=== PATIENT | male | born 1960 | race Caucasian/White ===

== ENCOUNTER 2018-08-05 16:21 | Inpatient (IN) | payer OTHER ==
[2018-08-05] MEDS ORDERED: SODIUM CHLORIDE 0.9% 500 ML 500 ML IV STA (16:38)
[2018-08-05] MEDS ORDERED: SODIUM CHLORIDE 0.9% 1,000 ML IV ONE (16:50)
--- NOTE | 2018-08-05 16:57 | ED ---
Syncope HPI <Luis Enrique Chavez - Last Filed: 08/05/18 17:01> - General Source: EMS Mode of arrival: EMS Limitations: no limitations <Ama Amato - Last Filed: 08/05/18 19:53> - General Chief Complaint: Syncope Stated Complaint: syncope Time Seen by Provider: 08/05/18 16:38 - History of Present Illness Initial Comments: 38-year-old male past medical history of hypertension, oral/soft tissue and tongue cancer diagnosed 05/12/2018, recent diagnosis of atrial fibrillation on eliquis, with history of syncope presenting today for chief complaint of syncopal episode. Patient states that he felt dizzy while at his radiation appointment with Dr. Lay. He was sitting in a chair, when he passed out. Patient family member denies any seizure-like activity. Patient did not have incontinence, biting tongue or have any other oral injury. Patient was put on the ground, but he states that he was alert and oriented when he woke up about a minute later. Family denies fall head or neck injury or injury to any other extremity. Patient denies any chest pain, shortness of breath, palpitations, dyspnea on exertion, cough, sinus, calf pain, headache, confusion, speech or gait changes, muscle weakness or loss of sensation or paresthesias prior to falling fall. Patient states he did feel a little dizzy just prior to syncopal episode. Upon arrival to ER pt is AAOx4 no signs of altered. Pt did admit to eating medical marijuana cookie today, as well as chronic nausea and vomiting. Remainder of ROS (-), patient denies any recent fever, chills, back pain, abdominal pain, numbness or tingling, dysuria or hematuria, constipation or diarrhea, or visual changes, or any other complaints. Upon arrival patient hemodynamically stable. (Ama Amato) - Related Data Home Medications Medication Instructions Recorded Confirmed ALPRAZolam [Xanax] 0.25 mg PO Q8HR PRN 07/21/18 08/05/18 Cevimeline [Evoxac] 30 mg PO TID 07/21/18 08/05/18 Magic Mouthwash 15 ml PO AC-TID 07/21/18 08/05/18 Ondansetron [Zofran ODT] 4 mg PO Q4H PRN 07/21/18 08/05/18 Previous Rx's Medication Instructions Recorded Apixaban [Eliquis] 5 mg PO BID #60 tab 07/24/18 Fluconazole [Diflucan] 200 mg PO DAILY #7 tab 07/24/18 Metoprolol Tartrate [Lopressor] 12.5 mg PO TID #90 tab 07/24/18 Scopolamine 1.5MG/72Hr Patch 1 patch TRANSDERM Q72H #10 patch 07/24/18 [TransDerm Scop] Allergies Allergy/AdvReac Type Severity Reaction Status Date / Time No Known Allergies Allergy Verified 08/05/18 16:45 Review of Systems ROS Other: All systems not noted in ROS Statement are negative. <Luis Enrique Chavez - Last Filed: 08/05/18 17:01> ROS Other: All systems not noted in ROS Statement are negative. Constitutional: Denies: fever, chills ENT: Denies: ear pain, throat pain Respiratory: Denies: as per HPI, cough, dyspnea, wheezes, hemoptysis, stridor Cardiovascular: Denies: chest pain, palpitations, dyspnea on exertion Endocrine: Denies: fatigue Gastrointestinal: Reports: nausea, vomiting. Denies: abdominal pain, diarrhea, constipation, hematemesis, melena, hematochezia Genitourinary: Denies: urgency, dysuria, frequency, hematuria Musculoskeletal: Denies: back pain Skin: Denies: rash, lesions Neurological: Reports: vertigo (dizziness just prior to passing out). Denies: headache, weakness, numbness, paresthesias, confusion, abnormal gait <Ama Amato - Last Filed: 08/05/18 19:53> ROS Statement: Those systems with pertinent positive or pertinent negative responses have been documented in the HPI. 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 History of Any Multi-Drug Resistant Organisms: None Reported Past Surgical History: Tonsillectomy Additional Past Surgical History / Comment(s): Bronchoscopies x2 with base of tongue bx/lesion removal per spouse, nasal fracture with surgery. Additional Past Anesthesia/Blood Transfusion Reaction / Comment(s): Pt was hypertensive once. Past Psychological History: Anxiety Smoking Status: Never smoker Past Alcohol Use History: None Reported Past Drug Use History: Marijuana - Past Family History Father Family Medical History: Myocardial Infarction ([place]) Additional Family Medical History / Comment(s): Father of heart problems. Mother Family Medical History: Myocardial Infarction ([place]) Additional Family Medical History / Comment(s): Mother of heart problems. <Allison Amatobrenda Serrano - Last Filed: 08/05/18 19:53> General Exam <Luis Enrique Chavez - Last Filed: 08/05/18 17:01> Limitations: no limitations <Allison Amatobrenda Serrano - Last Filed: 08/05/18 19:53> - General Exam Comments Initial Comments: General: The patient is awake and alert, in no distress, and does not appear acutely ill. Eye: +3 pupils are equal, round and reactive to light, extra-ocular movements are intact. No nystagmus. There is normal conjunctiva bilaterally. No signs of icterus. Ears, nose, mouth and throat: There are moist mucous membranes and no oral lesions. Neck: There is large left sided mass. Cardiovascular: There is a irregular rate and irregular rhythm. No murmur, rub or gallop is appreciated. Respiratory: Lungs are clear to auscultation, respirations are non-labored, breath sounds are equal. No wheezes, stridor, rales, or rhonchi. Gastrointestinal: Soft, non-distended, non-tender abdomen without masses or organomegaly noted. There is no rebound or guarding present. No CVA tenderness. Bowel sounds are unremarkable. Musculoskeletal: Normal ROM, no tenderness. Strength 5/5. Sensation intact. Pulses equal bilaterally 2+. Neurological: A&O x 3. CN II-XII intact, There are no obvious motor or sensory deficits. Coordination appears grossly intact. Speech is normal. Skin: Skin is warm and dry and no rashes or lesions are noted. No LE edema Psychiatric: Cooperative, appropriate mood & affect, normal judgment. (Ama Amato) Course <Luis Enrique Chavez - Last Filed: 08/05/18 17:01> <ValentinAma tinsley - Last Filed: 08/05/18 19:53> Vital Signs 08/05/18 08/05/18 16:29 17:55 Temperature 97.5 F L Pulse Rate 124 H 100 Respiratory 18 18 Rate Blood Pressure 113/87 160/102 O2 Sat by Pulse 99 98 Oximetry (LmAma Serrano) - Reevaluation(s) Reevaluation #1: 08/05/18 17:01 PA supervision: I proceeded [id number] evaluation the patient did discuss the findings with him and his . Patient has a recurrence of atrial fibrillation with rapid ventricular response. This occurred right after radiation treatment today. He did have nausea vomiting. He does feel somewhat dizzy and weak. No chest pain at this time. He is currently in atrial fibrillation heart is irregularly irregular on examination. I do agree with the assessment and plan patient be admitted with consultation by cardiology and oncology. Case will be discussed with Dr. Echols. (Luis Enrique Chavez) EKG Findings - EKG Comments: EKG Findings:: Due to the right eye and 25 bpm, QRS 90 ms, QT/QTC 322/464 ms. This is a true fibrillation with rapid ventricular response. There is nonspecific ST abnormality. No ST elevation or depression concerning for acute coronary syndrome at this time. EKG reviewed by Dr. Luis Enrique Chavez as well as myself. <Ama Amato - Last Filed: 08/05/18 19:53> Medical Decision Making <Luis Enrique Chavez - Last Filed: 08/05/18 17:01> - Lab Data Result diagrams: 08/05/18 16:41 08/05/18 16:41 <Ama Amato - Last Filed: 08/05/18 19:53> - Medical Decision Making Upon arrival EKG obtained revealing A. fib RVR. Given 1000mL of 0.9% saline bolus. Blood pressure stable, no hypotension. Repeat blood pressure elevated. Patient's started on a Cardizem drip, at 5 mg an hour. Patient was evaluated [id number] by Dr. Chavez. At this time feel patient had syncopal episode possibly related to A. fib RVR. CXR (-) Troponin negative, CK-MB negative. Hemoglobin is mildly decreased in comparison with visit 2 weeks ago, mild bump in creatinine however patient has had chronic nausea and vomiting since beginning chemotherapy. Patient dry and exam. Noted leukopenia. At this time patient will be admitted to , with consult by Dr. Son as well as [facility]. Patient is agreeable with admission, he remained stable upon multiple re-evaluations. Continues to deny any chest pain, shortness of breath, palpitations, abdominal pain, back pain. Remains hemodynamically stable. Prior to shift change, pt remainded in ER on HOLD. Admitted provider aware of pt, I updated ER physician Dr. Chavez on pt, he will continue care until transfer to the floor. (Ama Amato) - Lab Data Lab Results 08/05/18 08/05/18 08/05/18 Range/Units 16:41 16:41 16:41 WBC 2.3 L (3.8-10.6) k/uL RBC 3.50 L (4.30-5.90) m/uL Hgb 11.0 L (13.0-17.5) gm/dL Hct 32.1 L (39.0-53.0) % MCV 91.9 (80.0-100.0) fL MCH 31.4 (25.0-35.0) pg MCHC 34.2 (31.0-37.0) g/dL RDW 13.7 (11.5-15.5) % Plt Count 414 (150-450) k/uL Neutrophils % (Manual) 59 % Band Neutrophils % 1 % Lymphocytes % (Manual) 28 % Monocytes % (Manual) 12 % Neutrophils # (Manual) 1.30 (1.3-7.7) k/uL Lymphocytes # (Manual) 0.64 L (1.0-4.8) k/uL Monocytes # (Manual) 0.28 (0-1.0) k/uL Nucleated RBCs 0 (0-0) /100 WBC Manual Slide Review Performed Large Platelets Present Polychromasia Present Poikilocytosis (manual Present PT (9.0-12.0) sec INR (<1.2) APTT (22.0-30.0) sec Sodium 140 (137-145) mmol/L Potassium 4.0 (3.5-5.1) mmol/L Chloride 103 (98-107) mmol/L Carbon Dioxide 25 (22-30) mmol/L Anion Gap 12 mmol/L BUN 31 H (9-20) mg/dL Creatinine 1.52 H (0.66-1.25) mg/dL Est GFR (CKD-EPI)AfAm 58 (>60 ml/min/1.73 sqM) Est GFR (CKD-EPI)NonAf 50 (>60 ml/min/1.73 sqM) Glucose 163 H (74-99) mg/dL Calcium 9.7 (8.4-10.2) mg/dL Magnesium 2.0 (1.6-2.3) mg/dL Total Bilirubin 0.7 (0.2-1.3) mg/dL AST 43 (17-59) U/L ALT 82 H (21-72) U/L Alkaline Phosphatase 103 (38-126) U/L Total Creatine Kinase 25 L (55-170) U/L CK-MB (CK-2) <0.2 (0.0-2.4) ng/mL CK-MB (CK-2) Rel Index Troponin I <0.012 (0.000-0.034) ng/mL Total Protein 6.7 (6.3-8.2) g/dL Albumin 3.8 (3.5-5.0) g/dL 08/05/18 Range/Units 16:41 WBC (3.8-10.6) k/uL RBC (4.30-5.90) m/uL Hgb (13.0-17.5) gm/dL Hct (39.0-53.0) % MCV (80.0-100.0) fL MCH (25.0-35.0) pg MCHC (31.0-37.0) g/dL RDW (11.5-15.5) % Plt Count (150-450) k/uL Neutrophils % (Manual) % Band Neutrophils % % Lymphocytes % (Manual) % Monocytes % (Manual) % Neutrophils # (Manual) (1.3-7.7) k/uL Lymphocytes # (Manual) (1.0-4.8) k/uL Monocytes # (Manual) (0-1.0) k/uL Nucleated RBCs (0-0) /100 WBC Manual Slide Review Large Platelets Polychromasia Poikilocytosis (manual PT 11.1 (9.0-12.0) sec INR 1.2 H (<1.2) APTT 23.1 (22.0-30.0) sec Sodium (137-145) mmol/L Potassium (3.5-5.1) mmol/L Chloride (98-107) mmol/L Carbon Dioxide (22-30) mmol/L Anion Gap mmol/L BUN (9-20) mg/dL Creatinine (0.66-1.25) mg/dL Est GFR (CKD-EPI)AfAm (>60 ml/min/1.73 sqM) Est GFR (CKD-EPI)NonAf (>60 ml/min/1.73 sqM) Glucose (74-99) mg/dL Calcium (8.4-10.2) mg/dL Magnesium (1.6-2.3) mg/dL Total Bilirubin (0.2-1.3) mg/dL AST (17-59) U/L ALT (21-72) U/L Alkaline Phosphatase (38-126) U/L Total Creatine Kinase (55-170) U/L CK-MB (CK-2) (0.0-2.4) ng/mL CK-MB (CK-2) Rel Index Troponin I (0.000-0.034) ng/mL Total Protein (6.3-8.2) g/dL Albumin (3.5-5.0) g/dL Disposition <Luis Enrique Chavez - Last Filed: 08/05/18 17:01> Is patient prescribed a controlled substance at d/c from ED?: No Time of Disposition: 16:57 Decision to Admit Reason: Admit from EC Decision Date: 08/05/18 Decision Time: 16:57 <Ama Amato - Last Filed: 08/05/18 19:53> Clinical Impression: Atrial fibrillation with RVR, Syncope, Leukopenia Disposition: ADMITTED IP TO THIS HOSP Condition: Stable
[2018-08-05] MEDS ORDERED: DILTIAZEM 50 MG in SODIUM CHLORIDE 0.9% 40 ML IV SCH (17:00)
[2018-08-05 17:09] LABS: Albumin 3.8 g/dL (3.5-5.0); Calcium 9.7 mg/dL (8.4-10.2); Total Bilirubin 0.7 mg/dL (0.2-1.3); Total Protein 6.7 g/dL (6.3-8.2)
[2018-08-05 17:10] LABS: INR 1.2 (<1.2); Partial Thromboplastin Time 23.1 sec (22.0-30.0); Prothrombin Time 11.1 sec (9.0-12.0)
[2018-08-05 17:11] LABS: Creatine Kinase 25 U/L (55-170)
[2018-08-05] MEDS ORDERED: NALOXONE 0.4 MG/ML 1 ML VIAL IV PRN (17:14)
[2018-08-05] MEDS ORDERED: ONDANSETRON 4 MG/2 ML VIAL IVP PRN (17:14)
[2018-08-05] MEDS ORDERED: ALPRAZolam 0.25 MG TAB PO PRN (17:18)
[2018-08-05 17:24] LABS: HCT 32.1 % (39.0-53.0); MCH 31.4 pg (25.0-35.0); MCHC 34.2 g/dL (31.0-37.0); MCV 91.9 fL (80.0-100.0); Mean Platelet Volume 7.6; Platelet Count 414 k/uL (150-450); RDW 13.7 % (11.5-15.5); WBC 2.3 k/uL (3.8-10.6)
[2018-08-05 17:25] LABS: Creatine Kinase MB <0.2 ng/mL (0.0-2.4); Troponin I <0.012 ng/mL (0.000-0.034)
[2018-08-05] MEDS ORDERED: MAGIC MOUTHWASH PO SCH (17:30)
[2018-08-05] MEDS: SODIUM CHLORIDE 0.9% 1,000 ML IV SCH (17:51)
[2018-08-05 17:59] LABS: Appearance,Urine Cloudy (Clear); Bacteria,Urine Occasional /hpf; Bilirubin,Urine Negative (Negative); Blood,Urine Negative (Negative); Color,Urine Yellow; Glucose,Urine (UA) Trace (Negative); Ketones,Urine 1+ (Negative); Leukocyte Esterase,Urine Negative (Negative); Mucus,Urine Many /hpf; Nitrite,Urine Negative (Negative); PH, Urine 5.5 (5.0-8.0); Protein,Urine 1+ (Negative); RBC,Urine 4 /hpf (0-5); Specific Gravity,Urine 1.021 (1.001-1.035); Sperm,Urine Rare /hpf; WBC,Urine 7 /hpf (0-5)
[2018-08-05 18:04] LABS: Band Neutrophils % 1 %; Lymphocytes # (M) 0.64 k/uL (1.0-4.8); Monocytes # (M) 0.28 k/uL (0-1.0); Neutrophils % (M) 59 %; Nucleated Red Blood Cells 0 /100 WBC (0-0); Total Cells Counted 100
[2018-08-05 18:05] LABS: Large Platelets Present; Polychromasia Present
[2018-08-05 18:08] LABS: Poikilocytosis (M) Present
--- NOTE | 2018-08-05 18:28 | XR ---
EXAMINATION: XR chest 2V DATE AND TIME: 08/05/2018 5:10 PM CLINICAL INDICATION: syncope TECHNIQUE: PA and lateral COMPARISON: None. FINDINGS: The lungs are clear. The pleural spaces are negative. The cardiac silhouette is not enlarged. The remainder of the mediastinal silhouette is unremarkable. The skeletal structures and soft tissues are negative for acute findings. IMPRESSION: NO ACUTE PROCESS.
[2018-08-05] MEDS: DILTIAZEM 50 MG in SODIUM CHLORIDE 0.9% 40 ML IV SCH ×2 (20:17→23:12)
[2018-08-05] MEDS: METOPROLOL TARTRATE 12.5 MG TAB PO SCH (22:23)
[2018-08-05] MEDS: APIXABAN 5 MG TAB PO SCH (22:23)
[2018-08-05] MEDS: CEVIMELINE 30 MG CAP PO SCH (23:12)
[2018-08-06] MEDS: SODIUM CHLORIDE 0.9% 1,000 ML IV SCH ×2 (05:48→21:52)
[2018-08-06] MEDS: DILTIAZEM 50 MG in SODIUM CHLORIDE 0.9% 40 ML IV SCH (05:49)
[2018-08-06] MEDS: MAG HYDROX/AL HYDROX/SIMETH 30 ML, diphenhydrAMINE ELIXIR 75 MG, LIDOCAINE VISCOUS 30 ML PO SCH ×9 (07:39→16:38)
[2018-08-06] MEDS: METOPROLOL TARTRATE 12.5 MG TAB PO SCH ×3 (08:25→21:52)
[2018-08-06] MEDS: APIXABAN 5 MG TAB PO SCH (08:25)
[2018-08-06] MEDS: CEVIMELINE 30 MG CAP PO SCH ×3 (08:25→21:52)
--- NOTE | 2018-08-06 10:33 | P.CRDCN ---
History of Present Illness Consult date: 08/06/18 Requesting physician: Gomez Echols Consult reason: sycope, atrial fibrillation Chief complaint: Syncope History of present illness: This is a pleasant 58-year-old gentleman with history of hypertension , who had a recent hospitalization earlier this month and was diagnosed with atrial fibrillation. He has oral cancer and is currently undergoing chemotherapy and radiation treatment. Patient has not been eating or drinking much at home, and has been getting more tired and more weak. He was at his doctor's appointment with Dr. Lay yesterday, he states that he felt lightheaded and felt as though he may pass out, shortly after that he did pass out leaning against his sitting in a chair. The staff in the office assisted him down to the ground. Upon wakening he was alert and oriented 3, he did not lose bowel or bladder function. Chest x-ray did not reveal any acute process. EKG showed atrial fibrillation with rapid ventricular response on arrival here. Blood pressure this morning 114/70 with a heart rate of 60, 96 % on room air. White blood cell count 2.3, hemoglobin 11, platelet count 414. Sodium 140, potassium 4.0, BUN 31, creatinine 1.5. Troponin 0.012. At the time of my examination, patient just complains of feeling extremely weak, denies any palpitations, no chest discomfort, no difficulty in breathing. He did have an echocardiogram with Doppler study performed earlier this month which revealed an ejection fraction of greater than 55%. 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 History of Any Multi-Drug Resistant Organisms: None Reported Past Surgical History: Tonsillectomy Additional Past Surgical History / Comment(s): Bronchoscopies x2 with base of tongue bx/lesion removal per spouse, nasal fracture with surgery. Additional Past Anesthesia/Blood Transfusion Reaction / Comment(s): Pt was hypertensive once. Past Psychological History: Anxiety Additional Psychological History / Comment(s): Pt resides with his spouse of 22 yrs and her 19 yr old daughter. He is disabled since his cancer diagnosis. He has had anxiety since his cancer diagnosis-takes xanax and it helps. Pt no longer drives, his spouse drives him to [employer] Pt used to work in [employer]. Smoking Status: Never smoker Past Alcohol Use History: None Reported Past Drug Use History: Marijuana - Past Family History Father Family Medical History: Myocardial Infarction ([place]) Additional Family Medical History / Comment(s): Father of heart problems. Mother Family Medical History: Myocardial Infarction ([place]) Additional Family Medical History / Comment(s): Mother of heart problems. Medications and Allergies Home Medications Medication Instructions Recorded Confirmed Type ALPRAZolam [Xanax] 0.25 mg PO Q8HR PRN 07/21/18 08/05/18 History Cevimeline [Evoxac] 30 mg PO TID 07/21/18 08/05/18 History Magic Mouthwash 15 ml PO AC-TID 07/21/18 08/05/18 History Ondansetron [Zofran ODT] 4 mg PO Q4H PRN 07/21/18 08/05/18 History Apixaban [Eliquis] 5 mg PO BID #60 tab 07/24/18 08/05/18 Rx Fluconazole [Diflucan] 200 mg PO DAILY #7 tab 07/24/18 08/05/18 Rx Metoprolol Tartrate [Lopressor] 12.5 mg PO TID #90 tab 07/24/18 08/05/18 Rx Scopolamine 1.5MG/72Hr Patch 1 patch TRANSDERM Q72H #10 patch 07/24/18 08/05/18 Rx [TransDerm Scop] Allergies Allergy/AdvReac Type Severity Reaction Status Date / Time No Known Allergies Allergy Verified 08/05/18 16:45 Physical Exam Vitals: Vital Signs Temp Pulse Pulse Resp BP BP Pulse Ox 08/06/18 04:00 98.8 F 69 18 114/74 96 08/06/18 00:00 99 F 89 18 103/65 97 08/05/18 21:54 99.2 F 106 H 18 137/79 96 08/05/18 21:01 105 H 18 135/88 96 08/05/18 20:19 150/102 08/05/18 20:18 115 H 18 97 08/05/18 17:55 100 18 160/102 98 08/05/18 16:29 97.5 F L 124 H 18 113/87 99 Intake and Output 08/05/18 08/06/18 08/06/18 22:59 06:59 14:59 Intake Total 100 529.167 Balance 100 529.167 Intake: Intake, IV Titration 529.167 Amount Diltiazem 50 mg In Sodium 79.167 Chloride 0.9% 40 ml @ 10 MG/HR 10 mls/hr IV .Q5H POLLO Rx#:[id number] Sodium Chloride 0.9% 1, 450 000 ml @ 75 mls/hr IV . [id number] POLLO Rx#:[id number] Oral 100 Other: # Voids 2 Weight 74.843 kg PHYSICAL EXAMINATION: GENERAL: 58-year-old gentleman in no acute distress at the time of my examination HEENT: Head is atraumatic, normocephalic. Pupils equal, round. Sclera anicteric. Conjunctiva are clear. Mucous membranes of the mouth are moist. Neck is supple. There is a large mass in the supraclavicular area moved posteriorly, and a second mass above that noted. There is no elevated jugular venous pressure. No carotid bruit is heard. HEART EXAMINATION: Heart S1 and S2 irregularly irregular CHEST EXAMINATION:[ Lungs are clear to auscultation and precussion. No chest wall tenderness is noted on palpation or with deep breathing.] ABDOMEN: [ Soft, nontender. Bowel sounds are heard. No organomegaly noted]. EXTREMITIES:[ 2+ peripheral pulses with no evidence of peripheral edema and no calf tenderness noted]. NEUROLOGIC [patient is awake, alert and oriented 3 ] . Results 08/05/18 16:41 08/05/18 16:41 Cardiac Enzymes 08/05/18 08/05/18 Range/Units 16:41 16:41 AST 43 (17-59) U/L CK-MB (CK-2) <0.2 (0.0-2.4) ng/mL Troponin I <0.012 (0.000-0.034) ng/mL Coagulation 08/05/18 Range/Units 16:41 PT 11.1 (9.0-12.0) sec APTT 23.1 (22.0-30.0) sec CBC 08/05/18 Range/Units 16:41 WBC 2.3 L (3.8-10.6) k/uL RBC 3.50 L (4.30-5.90) m/uL Hgb 11.0 L (13.0-17.5) gm/dL Hct 32.1 L (39.0-53.0) % Plt Count 414 (150-450) k/uL Comprehensive Metabolic Panel 08/05/18 Range/Units 16:41 Sodium 140 (137-145) mmol/L Potassium 4.0 (3.5-5.1) mmol/L Chloride 103 (98-107) mmol/L Carbon Dioxide 25 (22-30) mmol/L BUN 31 H (9-20) mg/dL Creatinine 1.52 H (0.66-1.25) mg/dL Glucose 163 H (74-99) mg/dL Calcium 9.7 (8.4-10.2) mg/dL AST 43 (17-59) U/L ALT 82 H (21-72) U/L Alkaline Phosphatase 103 (38-126) U/L Total Protein 6.7 (6.3-8.2) g/dL Albumin 3.8 (3.5-5.0) g/dL Current Medications Generic Name Dose Route Start Last Admin Trade Name Freq PRN Reason Stop Dose Admin Alprazolam 0.25 mg 08/05/18 17:18 Xanax PO Q8HR PRN Anxiety Apixaban 5 mg 08/05/18 21:00 08/06/18 08:25 Eliquis PO 5 mg BID POLLO Administration Cevimeline HCl 30 mg 08/05/18 22:00 08/06/18 08:25 Evoxac PO 30 mg TID POLLO Administration Al Hydroxide/Mg Hydroxide 30 0 ml 08/06/18 07:30 08/06/18 07:39 ml/ Diphenhydramine HCl 75 mg/ PO Not Given Lidocaine HCl 30 ml AC-TID POLLO Sodium Chloride 1,000 mls @ 75 mls/hr 08/05/18 17:15 08/06/18 05:48 Saline 0.9% IV 75 mls/hr .[id number] POLLO Administration Diltiazem HCl 50 mg/ Sodium 50 mls @ 10 mls/hr 08/05/18 20:00 08/06/18 05:49 Chloride IV 10 mg/hr .Q5H POLLO 10 mls/hr Administration 10 MG/HR Metoprolol Tartrate 12.5 mg 08/05/18 22:00 08/06/18 08:25 Lopressor PO 12.5 mg TID POLLO Administration Naloxone HCl 0.2 mg 08/05/18 17:14 Narcan IV Q2M PRN Opioid Reversal Ondansetron HCl 4 mg 08/05/18 17:14 08/06/18 09:25 Zofran IVP 4 mg Q8HR PRN Administration Nausea And Vomiting Intake and Output 08/05/18 08/06/18 08/06/18 22:59 06:59 14:59 Intake Total 100 529.167 Balance 100 529.167 Intake: Intake, IV Titration 529.167 Amount Diltiazem 50 mg In Sodium 79.167 Chloride 0.9% 40 ml @ 10 MG/HR 10 mls/hr IV .Q5H POLLO Rx#:[id number] Sodium Chloride 0.9% 1, 450 000 ml @ 75 mls/hr IV . [id number] POLLO Rx#:[id number] Oral 100 Other: # Voids 2 Weight 74.843 kg 08/05/18 16:41 08/05/18 16:41 EKG Interpretations (text) EKG shows atrial fibrillation with moderately rapid ventricular response. Assessment and Plan Plan: Assessment and plan #1 syncope, could be secondary to dehydration, rule out arrhythmia or hypotension #2 chronic persistent atrial fibrillation, on Eliquis for anticoagulation #3 hypertension #4 acute on chronic renal failure likely secondary to dehydration #5 oral cancer, currently on chemotherapy and radiation Plan Patient just had an echocardiogram with Doppler study performed earlier this month which revealed normal left ventricular systolic function. We will check orthostatic heart rate and blood pressure every shift, continue to hydrate the patient continue to monitor for any tachycardia or bradycardia arrhythmias or any significant conversion pauses. We will also discontinue the IV Cardizem drip, heart rate this morning in the 50s. If nothing is noted here, we recommend patient wear a monitor as an patient and his are also requesting possible feeding tube placement as he has not been eating at home. Further recommendations to follow. DNP note has been reviewed, I agree with a documented findings and plan of care. Patient was seen and examined.
--- NOTE | 2018-08-06 13:10 | P.CONS ---
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 Consultation requested for malnutrition and PEG tube insertion. Patient has not been able to maintain adequate nutrition and hydration while undergoing chemoradiation. He has intermittent episodes of emesis sometimes on a daily basis. Denies hematemesis hematochezia or melena. Denies epigastric pain. Mild weight loss over the last month. No history of gastric surgeries. No history of EGD or peptic ulcer disease. Last dose of chemotherapy 2 weeks ago last radiation treatment yesterday. White count 2.3. Hemoglobin 11. Platelet 414. INR 1.2. Review of Systems Constitutional: Denies fever, chills, sweats, mild weight loss reported. HEENT: Negative for migraines, blurred vision or loss, earaches, drainage, tinnitus, oral mucosal lesions, dysphagia, or odynophagia. Cardiac: Negative for chest pain, arrhythmias, or palpitation. Respiratory: Negative for shortness of breath, hemoptysis, cough, or sputum production. Gastrointestinal: See HPI for pertinent findings. Genitourinary: Negative for hematuria, urgency, frequency, polyuria, dysuria, or penile discharge. Musculoskeletal: Negative for muscle aches, swelling, arthritis, and arthralgias. Neurologic: Negative for stroke or TIA. Endocrine: Negative for thyroid problems. Skin: Negative for rash or itching. Psychiatric: Negative history for depression and anxiety Past Medical History Past Medical History: Atrial Fibrillation, Cancer Additional Past Medical History / Comment(s): Cancer base of tongue receiving chemo (last dose 07/17/18) and radiation, dysphagia, recently has been hypertensive. History of Any Multi-Drug Resistant Organisms: None Reported Past Surgical History: Tonsillectomy Additional Past Surgical History / Comment(s): Bronchoscopies x2 with base of tongue bx/lesion removal per spouse, nasal fracture with surgery. Additional Past Anesthesia/Blood Transfusion Reaction / Comm: Pt was hypertensive once. Past Psychological History: Anxiety Additional Psychological History / Comment(s): Pt resides with his spouse of 22 yrs and her 19 yr old daughter. He is disabled since his cancer diagnosis. He has had anxiety since his cancer diagnosis-takes xanax and it helps. Pt no longer drives, his spouse drives him to [employer]. Pt used to work in [employer]. Smoking Status: Never smoker Past Alcohol Use History: None Reported Past Drug Use History: Marijuana - Past Family History Father Family Medical History: Myocardial Infarction ([place]) Additional Family Medical History / Comment(s): Father of heart problems. Mother Family Medical History: Myocardial Infarction ([place]) Additional Family Medical History / Comment(s): Mother of heart problems. Medications and Allergies Home Medications Medication Instructions Recorded Confirmed Type ALPRAZolam [Xanax] 0.25 mg PO Q8HR PRN 07/21/18 08/05/18 History Cevimeline [Evoxac] 30 mg PO TID 07/21/18 08/05/18 History Magic Mouthwash 15 ml PO AC-TID 07/21/18 08/05/18 History Ondansetron [Zofran ODT] 4 mg PO Q4H PRN 07/21/18 08/05/18 History Apixaban [Eliquis] 5 mg PO BID #60 tab 07/24/18 08/05/18 Rx Fluconazole [Diflucan] 200 mg PO DAILY #7 tab 07/24/18 08/05/18 Rx Metoprolol Tartrate [Lopressor] 12.5 mg PO TID #90 tab 07/24/18 08/05/18 Rx Scopolamine 1.5MG/72Hr Patch 1 patch TRANSDERM Q72H #10 patch 07/24/18 08/05/18 Rx [TransDerm Scop] Allergies Allergy/AdvReac Type Severity Reaction Status Date / Time No Known Allergies Allergy Verified 08/05/18 16:45 Physical Exam Vitals: Vital Signs Temp Pulse Pulse Pulse Pulse Pulse Resp 08/06/18 11:54 60 80 55 L 16 08/06/18 11:08 60 80 55 L 16 08/06/18 08:00 98.6 F 60 16 08/06/18 04:00 98.8 F 69 18 08/06/18 00:00 99 F 89 18 08/05/18 21:54 99.2 F 106 H 18 08/05/18 21:01 105 H 18 08/05/18 20:19 08/05/18 20:18 115 H 18 08/05/18 17:55 100 18 08/05/18 16:29 97.5 F L 124 H 18 BP BP BP BP BP Pulse Ox 08/06/18 11:54 08/06/18 11:08 113/73 105/66 107/59 97 08/06/18 08:00 126/73 96 08/06/18 04:00 114/74 96 08/06/18 00:00 103/65 97 08/05/18 21:54 137/79 96 08/05/18 21:01 135/88 96 08/05/18 20:19 150/102 08/05/18 20:18 97 08/05/18 17:55 160/102 98 08/05/18 16:29 113/87 99 Intake and Output 08/05/18 08/06/18 08/06/18 22:59 06:59 14:59 Intake Total 100 529.167 290 Balance 100 529.167 290 Intake: Intake, IV Titration 529.167 50 Amount Diltiazem 50 mg In Sodium 79.167 50 Chloride 0.9% 40 ml @ 10 MG/HR 10 mls/hr IV .Q5H [facility] Rx#:[id number] Sodium Chloride 0.9% 1, 450 000 ml @ 75 mls/hr IV . [id number] [facility] Rx#:[id number] Oral 100 240 Other: # Voids 2 Weight 74.843 kg General appearance: The patient is alert, oriented, in no acute distress. HE: Head is normocephalic and atraumatic. Pupils are equal and reactive. Neck: Supple without lymphadenopathy. Trachea midline. Heart: S1 S2. Regular rate and rhythm. Lungs: No crackles or wheezes are heard. Abdomen: Soft, nontender, nondistended with bowel sounds. No peritoneal signs. No palpable organomegaly or masses. Extremities: Normal skin color and turgor. No cyanosis, rash, ulceration, clubbing, or edema. Radial and pedal pulses are 2/4 bilaterally. Neurological: No focal deficits. Strength and sensation are grossly intact. Results CBC & Chem 7: 08/05/18 16:41 08/05/18 16:41 Labs: Abnormal Lab Results - Last 24 Hours (Table) 08/05/18 08/05/18 08/05/18 Range/Units 16:41 16:41 16:41 WBC 2.3 L (3.8-10.6) k/uL RBC 3.50 L (4.30-5.90) m/uL Hgb 11.0 L (13.0-17.5) gm/dL Hct 32.1 L (39.0-53.0) % Lymphocytes # (Manual) 0.64 L (1.0-4.8) k/uL INR (<1.2) BUN 31 H (9-20) mg/dL Creatinine 1.52 H (0.66-1.25) mg/dL Glucose 163 H (74-99) mg/dL ALT 82 H (21-72) U/L Total Creatine Kinase 25 L (55-170) U/L Urine Protein (Negative) Urine Glucose (UA) (Negative) Urine Ketones (Negative) Urine WBC (0-5) /hpf Urine Bacteria (None) /hpf Urine Mucus (None) /hpf 08/05/18 08/05/18 Range/Units 16:41 17:41 WBC (3.8-10.6) k/uL RBC (4.30-5.90) m/uL Hgb (13.0-17.5) gm/dL Hct (39.0-53.0) % Lymphocytes # (Manual) (1.0-4.8) k/uL INR 1.2 H (<1.2) BUN (9-20) mg/dL Creatinine (0.66-1.25) mg/dL Glucose (74-99) mg/dL ALT (21-72) U/L Total Creatine Kinase (55-170) U/L Urine Protein 1+ H (Negative) Urine Glucose (UA) Trace H (Negative) Urine Ketones 1+ H (Negative) Urine WBC 7 H (0-5) /hpf Urine Bacteria Occasional H (None) /hpf Urine Mucus Many H (None) /hpf Assessment and Plan (1) Decreased oral intake Narrative/Plan: 58-year-old gentleman recent diagnosis of oral cancer receiving chemoradiation patient unable to meet his nutritional needs with daily episodes of emesis and poor oral intake and dehydration admitted with syncopal episode. Current Visit: Yes Status: Acute Code(s): R63.8 - OTHER SYMPTOMS AND SIGNS CONCERNING FOOD AND FLUID INTAKE SNOMED Code(s): 728656223 (2) Head and neck cancer Current Visit: No Status: Acute Priority: High Code(s): C76.0 - MALIGNANT NEOPLASM OF HEAD, FACE AND NECK SNOMED Code(s): 448784943 (3) Atrial fibrillation Current Visit: Yes Status: Acute Code(s): I48.91 - UNSPECIFIED ATRIAL FIBRILLATION SNOMED Code(s): 79280679 Plan: 1. We'll proceed with PEG tube insertion scheduled Saturday [address] Rollins recommends holding ELiquis for 2 days prior toinsertion of PEG. Case was discussed with cardiology team Dr. Liz Amaya nurse practitioner as well as duct maker Dr. Eden they are agreeable with holding anticoagulation tonight and tomorrow in preparation for PEG tube insertion Saturday. 2. Continue with oral diet as tolerated. Protein shake supplementation as tolerated. Will obtain a pre-albumin level. Dietitian consultation. The varnish supervisor has discussed the risks, benefits and alternative therapies for the above-mentioned procedure and for both sedation/analgesia as well as necessary blood product administration, if indicated, as they pertain to this patient. The patient has indicated understanding and acceptance of the risks and procedures discussed. Thank you for this kind referral and the opportunity to participate in the care of your patient. This consultation was discussed with Dr. Rollins. The impression and plan of care have been directed as dictated.
[2018-08-06 14:18] LABS: HCT 28.5 % (39.0-53.0); HGB 9.9 gm/dL (13.0-17.5); MCH 31.2 pg (25.0-35.0); MCHC 34.9 g/dL (31.0-37.0); MCV 89.5 fL (80.0-100.0); Platelet Count 326 k/uL (150-450); RBC 3.18 m/uL (4.30-5.90); RDW 13.6 % (11.5-15.5); WBC 1.5 k/uL (3.8-10.6)
[2018-08-06 14:37] LABS: Calcium 8.6 mg/dL (8.4-10.2); Magnesium 1.7 mg/dL (1.6-2.3); Total Bilirubin 0.6 mg/dL (0.2-1.3); Total Protein 5.5 g/dL (6.3-8.2)
[2018-08-06] MEDS ORDERED: LORazepam 2 MG/ML INJ IV PRN (15:21)
[2018-08-06] MEDS ORDERED: DICYCLOMINE 10 MG CAP PO PRN (15:21)
[2018-08-06] MEDS ORDERED: ONDANSETRON 4 MG/2 ML VIAL IVP PRN (15:29)
[2018-08-06 16:15] LABS: Band Neutrophils % 1 %; Eosinophils # (M) 0.02 k/uL (0-0.7); Lymphocytes # (M) 0.27 k/uL (1.0-4.8); Monocytes # (M) 0.06 k/uL (0-1.0); Neutrophils % (M) 76 %; Nucleated Red Blood Cells 0 /100 WBC (0-0); Total Cells Counted 100
[2018-08-06 16:16] LABS: Poikilocytosis (M) Present
[2018-08-06] MEDS: PANTOPRAZOLE 40 MG TABLET PO SCH (16:30)
--- NOTE | 2018-08-06 16:39 | P.PN ---
Subjective Progress Note Date: 08/06/18 Principal diagnosis: dehydration Pt feeling much better today - was dehydrated yesterday and went into AFib w/ RVR. He is still reporting some nausea; mild sore throat as well. Objective - Vital Signs Vital signs: Vital Signs Temp 98.5 F 08/06/18 16:21 Pulse 70 08/06/18 16:21 Resp 17 08/06/18 16:21 BP 159/93 08/06/18 16:21 Pulse Ox 96 08/06/18 16:21 Intake & Output 08/05/18 08/06/18 08/06/18 18:59 06:59 18:59 Intake Total 629.167 410 Balance 629.167 410 Weight 74.843 kg 74.843 kg 74.843 kg Intake: Intake, IV Titration 529.167 50 Amount Diltiazem 50 mg In Sodium 79.167 50 Chloride 0.9% 40 ml @ 10 MG/HR 10 mls/hr IV .Q5H [facility] Rx#:[id number] Sodium Chloride 0.9% 1, 450 000 ml @ 75 mls/hr IV . [id number] [facility] Rx#:[id number] Oral 100 360 Other: # Voids 2 1 - Constitutional General appearance: Present: average body habitus, no acute distress - EENT Eyes: Present: EOMI, PERRLA ENT: Present: hearing grossly normal, pharyngeal erythema (Moderate mucositis) - Neck Neck: Present: lymphadenopathy (Significant stable L-neck adenopathy ) - Respiratory Respiratory: bilateral: CTA - Cardiovascular Rhythm: irregularly irregular - Labs CBC & Chem 7: 08/06/18 13:54 08/06/18 13:54 Labs: Abnormal Lab Results - Last 24 Hours (Table) 08/05/18 08/05/18 08/05/18 Range/Units 16:41 16:41 16:41 WBC 2.3 L (3.8-10.6) k/uL RBC 3.50 L (4.30-5.90) m/uL Hgb 11.0 L (13.0-17.5) gm/dL Hct 32.1 L (39.0-53.0) % Neutrophils # (Manual) (1.3-7.7) k/uL Lymphocytes # (Manual) 0.64 L (1.0-4.8) k/uL INR (<1.2) BUN 31 H (9-20) mg/dL Creatinine 1.52 H (0.66-1.25) mg/dL Glucose 163 H (74-99) mg/dL ALT 82 H (21-72) U/L Total Creatine Kinase 25 L (55-170) U/L Total Protein (6.3-8.2) g/dL Albumin (3.5-5.0) g/dL Urine Protein (Negative) Urine Glucose (UA) (Negative) Urine Ketones (Negative) Urine WBC (0-5) /hpf Urine Bacteria (None) /hpf Urine Mucus (None) /hpf 08/05/18 08/05/18 08/06/18 Range/Units 16:41 17:41 13:54 WBC 1.5 L (3.8-10.6) k/uL RBC 3.18 L (4.30-5.90) m/uL Hgb 9.9 L (13.0-17.5) gm/dL Hct 28.5 L (39.0-53.0) % Neutrophils # (Manual) 1.10 L (1.3-7.7) k/uL Lymphocytes # (Manual) 0.27 L (1.0-4.8) k/uL INR 1.2 H (<1.2) BUN (9-20) mg/dL Creatinine (0.66-1.25) mg/dL Glucose (74-99) mg/dL ALT (21-72) U/L Total Creatine Kinase (55-170) U/L Total Protein (6.3-8.2) g/dL Albumin (3.5-5.0) g/dL Urine Protein 1+ H (Negative) Urine Glucose (UA) Trace H (Negative) Urine Ketones 1+ H (Negative) Urine WBC 7 H (0-5) /hpf Urine Bacteria Occasional H (None) /hpf Urine Mucus Many H (None) /hpf 08/06/18 Range/Units 13:54 WBC (3.8-10.6) k/uL RBC (4.30-5.90) m/uL Hgb (13.0-17.5) gm/dL Hct (39.0-53.0) % Neutrophils # (Manual) (1.3-7.7) k/uL Lymphocytes # (Manual) (1.0-4.8) k/uL INR (<1.2) BUN (9-20) mg/dL Creatinine (0.66-1.25) mg/dL Glucose 161 H (74-99) mg/dL ALT (21-72) U/L Total Creatine Kinase (55-170) U/L Total Protein 5.5 L (6.3-8.2) g/dL Albumin 3.0 L (3.5-5.0) g/dL Urine Protein (Negative) Urine Glucose (UA) (Negative) Urine Ketones (Negative) Urine WBC (0-5) /hpf Urine Bacteria (None) /hpf Urine Mucus (None) /hpf Assessment and Plan Plan: 1. 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 He has had some difficulty with oral intake due to nausea from chemotherapy as well as mucositis. Dehydration - Improved. Cr back to baseline. He is due for chemotherapy this week but will likely be held. He is being evaluated for PEG-placement (likely Saturday). We plan to treat the patient and continued radiation today. Time with Patient: Less than 30
--- NOTE | 2018-08-06 17:57 | HP ---
HISTORY AND PHYSICAL DATE OF ADMISSION: 08/05/2018 DATE OF SERVICE: 08/06/2018. PRESENTING COMPLAINT: Dizzy. Lightheaded. HISTORY OF PRESENTING COMPLAINT: This is a very pleasant 58-year-old gentleman who was in the hospital 2 weeks ago. The patient was discharged from the hospital on July 25, 2018. The patient has a diagnosis of head and neck tumor including that of the neck and in the posterior pharynx. Has been getting chemotherapy. New chemotherapy was due to be started today. Also has been getting radiation treatment by Dr. Prosper Lay. The patient has known atrial fibrillation and has been on Eliquis for the same. The patient had gone back into sinus rhythm when he was discharged last admission. 2D echo showed preserved ejection fraction. The patient was at radiation treatment yesterday with Dr. Prosper Lay at [facility]. The patient became very dizzy, lightheaded. The patient is found to have a low blood pressure, atrial fibrillation with rapid ventricular rate. The patient is put on IV Cardizem. Admitted for the same. The patient has been gradually losing weight as oral intake has continued to go down. The patient's oncologist is Dr. Son. The patient only eating some liquid diet. The patient's and son are present in the room. The patient is now ready also for a PEG tube. REVIEW OF SYSTEMS: CONSTITUTIONAL: Poor appetite, weight loss. HEENT: Oral mass and mass in the left side of neck. RESPIRATORY: None. CARDIOVASCULAR: Tachycardia. GASTROINTESTINAL as above. GENITOURINARY: None. MUSCULOSKELETAL: None. DERMATOLOGIC, HEMATOLOGIC AND LYMPHATIC: None. PSYCHIATRY none. NEUROLOGICAL: None. PAST MEDICAL HISTORY: Mass in the oral cavity, left side of the neck, atrial fibrillation. PAST SURGICAL HISTORY: Tonsillectomy, bronchoscopy, type 2. SOCIAL HISTORY: . No smoking. No alcohol. 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 FAMILY HISTORY: Father of heart disease. HOME MEDICATIONS: 1. Scopolamine patch 1.5. 2. Zofran 4 mg q.4 p.r.n. 3. Lopressor 12.5 t.i.d. 4. Magic mouthwash 50 mL a.c. t.i.d. 5. Diflucan 1200 mg a day. 6. Evoxac 30 mg t.i.d. 7. Eliquis 5 mg b.i.d. 8. Xanax 0.25 p.o. q.8h p.r.n. ALLERGIES: None. PHYSICAL EXAMINATION: VITAL SIGNS: Vital signs on presentation, temperature 97.5, pulse 124, respiratory 18, blood pressure 113/87, pulse ox 99% on room air. GENERAL APPEARANCE: Thin build, sitting up, awake. EYES: Pupils are equal. Conjunctivae pale. HEENT: External appearance of nose and ears normal. Oral cavity normal. NECK: JVD not raised. Mass on the left side of neck. RESPIRATORY: Effort normal. Lungs are clear. CARDIOVASCULAR: Heart sounds irregular. No edema. ABDOMEN: Soft, nontender. Liver and spleen not palpable. LYMPHATICS: No lymph nodes palpable in the neck and axilla. PSYCHIATRY: Alert and oriented x3. Mood and affect slightly anxious-appearing. NEUROLOGICAL: Pupils equal. Cranial nerves grossly intact. Power and sensation grossly intact. INVESTIGATIONS: White count 2.3, hemoglobin 11, platelets 414, potassium 4, BUN 31, creatinine 1.52. EKG tracing personally reviewed by me shows atrial fibrillation with rapid ventricular rate up to 125. Chest x-ray film personally reviewed by me shows some hyperinflation. ASSESSMENT: 1. Persistent atrial fibrillation rapid ventricular rate. 2. Tumor mass head and neck, undergoing chemo and radiation treatment by Dr. Son and Dr. Prosper Lay. 3. Acute renal failure, prerenal from poor oral intake. 4. Anorexia from underlying tumor. 5. Normocytic anemia secondary to malignancy. 6. Hypoalbuminemia from moderate protein-calorie malnutrition from poor oral intake. PLAN: Patient initially was put on IV Cardizem drip. The patient rate did get a little bit rate controlled. Put on IV fluids. Will hold off patient's blood thinners as patient is agreeable for PEG tube. This is being coordinated by Gastroenterology. Cardiology was also consulted. Care was discussed with the patient and . Questions were answered. Copy to Dr. Traore. MMUVALDO / BLANK: [id number] /
--- NOTE | 2018-08-06 21:12 | P.CONS ---
History of Present Illness - Reason for Consult Consult date: 08/06/18 Current Chemoradiation for Head and Neck Cancer Requesting physician: Ama Amato - Chief Complaint SOB - History of Present Illness This is a 58 yr old [facility] patient who presented with palpable left neck mass,he first noticed it in May/2018. CT scan of neck done on 05/13/2018,ordered by Dr Traore,revealed left sided suprahyoid mass,measuring 5.7x3.3x3.0cm,lateral to it,there was another 5.5cm lesion. he was evaluated by [facility],he underwent direct laryngoscopy and limited esophagoscopy on 06/03/2018,found to have fullness and left tongue base,biopsy was positive for invasive squamous cell carcinoma,P16 strongly positive. On 06/07/2018,PET scan revealed suspicious uptake in base of left tongue,left cervical and supraclavicular nodes. He was started cisplatin every 3 weeks with XRT on 06/25/2018. He is s/p 2 cycles , most recent on 07/16/18. Plan was for 4 treatments of cisplatin, next was due today. He has been struggling with increased nausea, vomiting which appears to be precipitated by increased mucus nasopharyngeal secreations probably worsened with treatment. With his decrease in appetite, PO intake, he followed with decreased energy and weakness which is generalized. Over the past few days unable to hold down even po fluids. He was advised to be seen through ER for further assessment. On admission creatinine was elevated 1.6, and clinical dehydration as well as other electrolyte abnormalities. In addition the patient was found to be in atrial fibrillation with rapid ventricular response. He was therefore admitted for further management. He denies significant dysphagia, with his largest complaint of nausea and secretions. BUN 31, creatinine 1.6. Cardiology assessed patient and treatment initiated for Atrial fibrillation. During exam this am, Dr. Lay was also with patient and we consulted regarding the plan to continue on radiation, increase and order a more intense antiemetic symptom plan, and plan for temporary peg tube to prevent re-hospitalization for dehydration. Review of Systems A 14 point review of systems assessed and completed and all negative except HPI Past Medical History Past Medical History: Atrial Fibrillation, Cancer Additional Past Medical History / Comment(s): Cancer base of tongue receiving chemo (last dose 07/17/18) and radiation, dysphagia, recently has been hypertensive. History of Any Multi-Drug Resistant Organisms: None Reported Past Surgical History: Tonsillectomy Additional Past Surgical History / Comment(s): Bronchoscopies x2 with base of tongue bx/lesion removal per spouse, nasal fracture with surgery. Additional Past Anesthesia/Blood Transfusion Reaction / Comm: Pt was hypertensive once. Past Psychological History: Anxiety Additional Psychological History / Comment(s): Pt resides with his spouse of 22 yrs and her 19 yr old daughter. He is disabled since his cancer diagnosis. He has had anxiety since his cancer diagnosis-takes xanax and it helps. Pt no longer drives, his spouse drives him to [employer]. Pt used to work in [email or web address]. Smoking Status: Never smoker Past Alcohol Use History: None Reported Past Drug Use History: Marijuana - Past Family History Father Family Medical History: Myocardial Infarction ([place]) Additional Family Medical History / Comment(s): Father of heart problems. Mother Family Medical History: Myocardial Infarction ([place]) Additional Family Medical History / Comment(s): Mother of heart problems. Medications and Allergies Home Medications Medication Instructions Recorded Confirmed Type ALPRAZolam [Xanax] 0.25 mg PO Q8HR PRN 07/21/18 08/05/18 History Cevimeline [Evoxac] 30 mg PO TID 07/21/18 08/05/18 History Magic Mouthwash 15 ml PO AC-TID 07/21/18 08/05/18 History Ondansetron [Zofran ODT] 4 mg PO Q4H PRN 07/21/18 08/05/18 History Apixaban [Eliquis] 5 mg PO BID #60 tab 07/24/18 08/05/18 Rx Fluconazole [Diflucan] 200 mg PO DAILY #7 tab 07/24/18 08/05/18 Rx Metoprolol Tartrate [Lopressor] 12.5 mg PO TID #90 tab 07/24/18 08/05/18 Rx Scopolamine 1.5MG/72Hr Patch 1 patch TRANSDERM Q72H #10 patch 07/24/18 08/05/18 Rx [TransDerm Scop] Allergies Allergy/AdvReac Type Severity Reaction Status Date / Time No Known Allergies Allergy Verified 08/05/18 16:45 Physical Exam Vitals: Vital Signs Temp Pulse Pulse Pulse Pulse Pulse Resp 08/06/18 11:54 60 80 55 L 16 08/06/18 11:08 60 80 55 L 16 08/06/18 08:00 98.6 F 60 16 08/06/18 04:00 98.8 F 69 18 08/06/18 00:00 99 F 89 18 08/05/18 21:54 99.2 F 106 H 18 08/05/18 21:01 105 H 18 08/05/18 20:19 08/05/18 20:18 115 H 18 08/05/18 17:55 100 18 08/05/18 16:29 97.5 F L 124 H 18 BP BP BP BP BP Pulse Ox 08/06/18 11:54 08/06/18 11:08 113/73 105/66 107/59 97 08/06/18 08:00 126/73 96 08/06/18 04:00 114/74 96 08/06/18 00:00 103/65 97 08/05/18 21:54 137/79 96 08/05/18 21:01 135/88 96 08/05/18 20:19 150/102 08/05/18 20:18 97 08/05/18 17:55 160/102 98 08/05/18 16:29 113/87 99 Intake and Output 08/05/18 08/06/18 08/06/18 22:59 06:59 14:59 Intake Total 100 529.167 290 Balance 100 529.167 290 Intake: Intake, IV Titration 529.167 50 Amount Diltiazem 50 mg In Sodium 79.167 50 Chloride 0.9% 40 ml @ 10 MG/HR 10 mls/hr IV .Q5H [facility] Rx#:[id number] Sodium Chloride 0.9% 1, 450 000 ml @ 75 mls/hr IV . [id number] [facility] Rx#:[id number] Oral 100 240 Other: # Voids 2 Weight 74.843 kg - Constitutional General appearance: cooperative, no acute distress, thin - EENT Cobblestoning and erythema in posterior pharynx noted, no thrush or exudates Eyes: normal appearance ENT: NA/AT - Neck left neck mass with skin peeling from xrt Neck: lymphadenopathy - Respiratory Respiratory: bilateral: CTA (no increased effort) - Cardiovascular Rhythm: irregularly irregular - Gastrointestinal General gastrointestinal: normal bowel sounds, soft - Integumentary Integumentary: pale - Neurologic no focal defects Neurologic: CNII-XII intact - Musculoskeletal Musculoskeletal: generalized weakness, strength equal bilaterally - Psychiatric Psychiatric: A&O x's 3, appropriate affect, intact judgment & insight Results CBC & Chem 7: 08/06/18 13:54 08/06/18 13:54 Labs: Abnormal Lab Results - Last 24 Hours (Table) 08/05/18 08/05/18 08/05/18 Range/Units 16:41 16:41 16:41 WBC 2.3 L (3.8-10.6) k/uL RBC 3.50 L (4.30-5.90) m/uL Hgb 11.0 L (13.0-17.5) gm/dL Hct 32.1 L (39.0-53.0) % Lymphocytes # (Manual) 0.64 L (1.0-4.8) k/uL INR (<1.2) BUN 31 H (9-20) mg/dL Creatinine 1.52 H (0.66-1.25) mg/dL Glucose 163 H (74-99) mg/dL ALT 82 H (21-72) U/L Total Creatine Kinase 25 L (55-170) U/L Urine Protein (Negative) Urine Glucose (UA) (Negative) Urine Ketones (Negative) Urine WBC (0-5) /hpf Urine Bacteria (None) /hpf Urine Mucus (None) /hpf 08/05/18 08/05/18 Range/Units 16:41 17:41 WBC (3.8-10.6) k/uL RBC (4.30-5.90) m/uL Hgb (13.0-17.5) gm/dL Hct (39.0-53.0) % Lymphocytes # (Manual) (1.0-4.8) k/uL INR 1.2 H (<1.2) BUN (9-20) mg/dL Creatinine (0.66-1.25) mg/dL Glucose (74-99) mg/dL ALT (21-72) U/L Total Creatine Kinase (55-170) U/L Urine Protein 1+ H (Negative) Urine Glucose (UA) Trace H (Negative) Urine Ketones 1+ H (Negative) Urine WBC 7 H (0-5) /hpf Urine Bacteria Occasional H (None) /hpf Urine Mucus Many H (None) /hpf Chest x-ray: report reviewed Assessment and Plan Plan: Assessment and Recommendations: 1. Recurrent Admission with Clinical Dehydration secondary to decreased PO intake associated nausea and vomiting - Creatinine has improved after IV Hydration - PLan for Peg tube to prevent re-hospitalization and obtain adequate hydration and Nutrition 2. Head and Neck Cancer: - Status POst 3 cycles of Cisplatin with concurrent radiation therapy - Cisplatin on Hold this week, will resume at the direction of Dr. Son once discharged from hospital and re-evaluated as outpatient - Dr. Lay will resume radiation therapy during hospital stay - Case discussed in detail with Dr. Lay today 3. Atrial Fibrillation with RVR (Recent new onset) - Cardiology FOllowing - Recent CTA negative for PE (07/22/18) - Eliquis and Cardizem 4. Persistent Nausea and Vomiting: not relieved with current antiemetic regimen - Patient receives xanax, zofran PRN, Dex for 3 days post treatment and Emend prior to treatment - On further assessment appears that nausea is mainly precipated with increased oral secretions which is a common effect of radiation therapy to this area, will initiate Bentyl to help with this. - Will initiate PPI BID - Change Xanax PRN to Ativan (IV while in hospital till nausea improves) to help with anticipatory nausea and anxiety induced nausea during the feeling of "choking on secretions" - COntinue with a bowel regimen to prevent Constipation which may also be a common contributing factor - Increase PRN Zofran to 4mg q4prn Thank you for allowing us to participate in the care of this patient we will follow along with you
[2018-08-07] MEDS: MAG HYDROX/AL HYDROX/SIMETH 30 ML, diphenhydrAMINE ELIXIR 75 MG, LIDOCAINE VISCOUS 30 ML PO SCH ×9 (06:41→17:22)
[2018-08-07] MEDS: PANTOPRAZOLE 40 MG TABLET PO SCH ×2 (06:41→17:22)
[2018-08-07 06:58] LABS: HCT 28.7 % (39.0-53.0); HGB 10.2 gm/dL (13.0-17.5); MCH 31.7 pg (25.0-35.0); MCHC 35.4 g/dL (31.0-37.0); MCV 89.6 fL (80.0-100.0); Mean Platelet Volume 6.5; Platelet Count 336 k/uL (150-450); RDW 13.6 % (11.5-15.5)
[2018-08-07 08:15] LABS: Eosinophils # (M) 0.01 k/uL (0-0.7); Monocytes # (M) 0.24 k/uL (0-1.0); Neutrophils # (M) 0.95 k/uL (1.3-7.7); Neutrophils % (M) 68 %; Nucleated Red Blood Cells 0 /100 WBC (0-0); Total Cells Counted 100
[2018-08-07] MEDS: METOPROLOL TARTRATE 12.5 MG TAB PO SCH (08:30)
[2018-08-07] MEDS: CEVIMELINE 30 MG CAP PO SCH ×3 (08:30→21:27)
[2018-08-07] MEDS: SODIUM CHLORIDE 0.9% 1,000 ML IV SCH ×2 (08:30→21:31)
--- NOTE | 2018-08-07 11:09 | P.PN ---
Subjective Progress Note Date: 08/07/18 Principal diagnosis: Dehydration weakness unable to meet nutritional needs Resting comfortably. PEG tube scheduled for tomorrow morning. Anticoagulation on hold. Afebrile. No complaints. Seen by dietitian. Objective - Vital Signs Vital signs: Vital Signs Temp 98.3 F 08/07/18 08:00 Pulse 102 H 08/07/18 08:00 Resp 18 08/07/18 08:00 BP 152/85 08/07/18 08:00 Pulse Ox 96 08/07/18 08:00 Intake & Output 08/06/18 08/07/18 08/07/18 18:59 06:59 18:59 Intake Total 410 120 Balance 410 120 Weight 74.843 kg 75.1 kg Intake: Intake, IV Titration 50 Amount Diltiazem 50 mg In Sodium 50 Chloride 0.9% 40 ml @ 10 MG/HR 10 mls/hr IV .Q5H [facility] Rx#:[id number] Oral 360 120 Other: # Voids 1 - Exam General appearance: The patient is alert, oriented, in no acute distress Heart: S1 S2. Regular rate and rhythm. Lungs: No crackles or wheezes are heard. Abdomen: Soft, nontender, nondistended with bowel sounds. No peritoneal signs. No palpable organomegaly or masses. Extremities: Normal skin color and turgor. No cyanosis, rash, ulceration, clubbing, or edema. Radial and pedal pulses are 2/4 bilaterally. Neurological: No focal deficits. Strength and sensation are grossly intact. - Labs CBC & Chem 7: 08/07/18 06:03 08/06/18 13:54 Labs: Abnormal Lab Results - Last 24 Hours (Table) 08/06/18 08/06/18 08/07/18 Range/Units 13:54 13:54 06:03 WBC 1.5 L 1.4 L* (3.8-10.6) k/uL RBC 3.18 L 3.20 L (4.30-5.90) m/uL Hgb 9.9 L 10.2 L (13.0-17.5) gm/dL Hct 28.5 L 28.7 L (39.0-53.0) % Neutrophils # (Manual) 1.10 L 0.95 L (1.3-7.7) k/uL Lymphocytes # (Manual) 0.27 L 0.20 L (1.0-4.8) k/uL Glucose 161 H (74-99) mg/dL Total Protein 5.5 L (6.3-8.2) g/dL Albumin 3.0 L (3.5-5.0) g/dL Assessment and Plan (1) Decreased oral intake Narrative/Plan: 58-year-old gentleman recent diagnosis of oral cancer receiving chemoradiation patient unable to meet his nutritional needs with daily episodes of emesis and poor oral intake and dehydration admitted with syncopal episode. Current Visit: Yes Status: Acute Code(s): R63.8 - OTHER SYMPTOMS AND SIGNS CONCERNING FOOD AND FLUID INTAKE SNOMED Code(s): 759235327 (2) Head and neck cancer Current Visit: No Status: Acute Priority: High Code(s): C76.0 - MALIGNANT NEOPLASM OF HEAD, FACE AND NECK SNOMED Code(s): 666602652 (3) Atrial fibrillation Current Visit: Yes Status: Acute Code(s): I48.91 - UNSPECIFIED ATRIAL FIBRILLATION SNOMED Code(s): 75425722 Plan: 1. Nothing by mouth after midnight. PEG tube scheduled for tomorrow morning. Assessment and plan a care discussed with Dr. Rollins
--- NOTE | 2018-08-07 11:38 | P.PN ---
Subjective Progress Note Date: 08/07/18 This is a pleasant 58-year-old gentleman with history of hypertension , who had a recent hospitalization earlier this month and was diagnosed with atrial fibrillation. He has oral cancer and is currently undergoing chemotherapy and radiation treatment. Patient has not been eating or drinking much at home, and has been getting more tired and more weak. He was at his doctor's appointment with Dr. Lay yesterday, he states that he felt lightheaded and felt as though he may pass out, shortly after that he did pass out leaning against his sitting in a chair. The staff in the office assisted him down to the ground. Upon wakening he was alert and oriented 3, he did not lose bowel or bladder function. Chest x-ray did not reveal any acute process. EKG showed atrial fibrillation with rapid ventricular response on arrival here. Blood pressure this morning 114/70 with a heart rate of 60, 96 % on room air. White blood cell count 2.3, hemoglobin 11, platelet count 414. Sodium 140, potassium 4.0, BUN 31, creatinine 1.5. Troponin 0.012. At the time of my examination, patient just complains of feeling extremely weak, denies any palpitations, no chest discomfort, no difficulty in breathing. He did have an echocardiogram with Doppler study performed earlier this month which revealed an ejection fraction of greater than 55%. 08/07/2018 Patient seen and examined this morning, overall feeling better. He did eat some cereal this morning and is drinking some jose saima at the time of my examination. He did undergo radiation treatment yesterday, and he is scheduled tomorrow to have a feeding tube placed.. In normal sinus rhythm this morning. White blood cell count 1.4, hemoglobin 10.2, platelet count 336. Blood pressure 152/80, no orthostatic documented. We will increase his dose of beta maryjane to 25 mg one tablet by mouth 3 times a day. Objective - Vital Signs Vital signs: Vital Signs Temp 98.3 F 08/07/18 08:00 Pulse 102 H 08/07/18 08:00 Resp 18 08/07/18 08:00 BP 152/85 08/07/18 08:00 Pulse Ox 96 08/07/18 08:00 Intake & Output 08/06/18 08/07/18 08/07/18 18:59 06:59 18:59 Intake Total 410 120 Balance 410 120 Weight 74.843 kg 75.1 kg Intake: Intake, IV Titration 50 Amount Diltiazem 50 mg In Sodium 50 Chloride 0.9% 40 ml @ 10 MG/HR 10 mls/hr IV .Q5H [facility] Rx#:[id number] Oral 360 120 Other: # Voids 1 - Exam PHYSICAL EXAMINATION: GENERAL: 58-year-old gentleman in no acute distress at the time of my examination HEENT: Head is atraumatic, normocephalic. Pupils equal, round. Sclera anicteric. Conjunctiva are clear. Mucous membranes of the mouth are moist. Neck is supple. There is a large mass in the supraclavicular area moved posteriorly, and a second mass above that noted. There is no elevated jugular venous pressure. No carotid bruit is heard. HEART EXAMINATION: Heart S1 and S2 normal CHEST EXAMINATION:[ Lungs are clear to auscultation and precussion. No chest wall tenderness is noted on palpation or with deep breathing.] ABDOMEN: [ Soft, nontender. Bowel sounds are heard. No organomegaly noted]. EXTREMITIES:[ 2+ peripheral pulses with no evidence of peripheral edema and no calf tenderness noted]. NEUROLOGIC [patient is awake, alert and oriented 3 ] - Labs CBC & Chem 7: 08/07/18 06:03 08/06/18 13:54 Labs: Abnormal Lab Results - Last 24 Hours (Table) 08/06/18 08/06/18 08/07/18 Range/Units 13:54 13:54 06:03 WBC 1.5 L 1.4 L* (3.8-10.6) k/uL RBC 3.18 L 3.20 L (4.30-5.90) m/uL Hgb 9.9 L 10.2 L (13.0-17.5) gm/dL Hct 28.5 L 28.7 L (39.0-53.0) % Neutrophils # (Manual) 1.10 L 0.95 L (1.3-7.7) k/uL Lymphocytes # (Manual) 0.27 L 0.20 L (1.0-4.8) k/uL Glucose 161 H (74-99) mg/dL Total Protein 5.5 L (6.3-8.2) g/dL Albumin 3.0 L (3.5-5.0) g/dL Assessment and Plan Plan: Assessment and plan #1 syncope, could be secondary to dehydration, rule out arrhythmia or hypotension #2 paroxysmal atrial fibrillation, #3 hypertension #4 acute on chronic renal failure likely secondary to dehydration #5 oral cancer, currently on chemotherapy and radiation Plan Patient just had an echocardiogram with Doppler study performed earlier this month which revealed normal left ventricular systolic function. Orthostatics have been negative. Patient converted to normal sinus rhythm this morning. Eliquis is currently on hold, feeding tube placement is scheduled for tomorrow. Following that procedure the Eliquis will be resumed. Patient then may be able to be discharged home from our perspective. DNP note has been reviewed, I agree with a documented findings and plan of care. Patient was seen and examined.
[2018-08-07] MEDS: METOPROLOL TARTRATE 25 MG TAB PO SCH ×2 (14:50→21:27)
[2018-08-07] MEDS: amLODIPine 5 MG TAB PO SCH (14:50)
[2018-08-07] MEDS: PSYLLIUM HUSK 100% 6 GM PACKET PO SCH (17:22)
--- NOTE | 2018-08-07 17:26 | P.PN ---
Subjective Progress Note Date: 08/07/18 Principal diagnosis: persistent nausea and vomiting feeling a little better today Objective - Vital Signs Vital signs: Vital Signs Temp 98.3 F 08/07/18 08:00 Pulse 102 H 08/07/18 08:00 Resp 18 08/07/18 08:00 BP 152/85 08/07/18 08:00 Pulse Ox 96 08/07/18 08:00 Intake & Output 08/06/18 08/07/18 08/07/18 18:59 06:59 18:59 Intake Total 410 120 Balance 410 120 Weight 74.843 kg 75.1 kg Intake: Intake, IV Titration 50 Amount Diltiazem 50 mg In Sodium 50 Chloride 0.9% 40 ml @ 10 MG/HR 10 mls/hr IV .Q5H [facility] Rx#:[id number] Oral 360 120 Other: # Voids 1 - Exam Constitutional General appearance: cooperative, no acute distress, thin - EENT Cobblestoning and erythema in posterior pharynx noted, no thrush or exudates Eyes: normal appearance ENT: NA/AT - Neck left neck mass with skin peeling from xrt Neck: lymphadenopathy - Respiratory Respiratory: bilateral: CTA (no increased effort) - Cardiovascular Rhythm: irregularly irregular - Gastrointestinal General gastrointestinal: normal bowel sounds, soft - Integumentary Integumentary: pale - Neurologic no focal defects Neurologic: CNII-XII intact - Musculoskeletal Musculoskeletal: generalized weakness, strength equal bilaterally - Psychiatric Psychiatric: A&O x's 3, appropriate affect, intact judgment & insight - Labs CBC & Chem 7: 08/07/18 06:03 08/06/18 13:54 Labs: Abnormal Lab Results - Last 24 Hours (Table) 08/06/18 08/06/18 08/07/18 Range/Units 13:54 13:54 06:03 WBC 1.5 L 1.4 L* (3.8-10.6) k/uL RBC 3.18 L 3.20 L (4.30-5.90) m/uL Hgb 9.9 L 10.2 L (13.0-17.5) gm/dL Hct 28.5 L 28.7 L (39.0-53.0) % Neutrophils # (Manual) 1.10 L 0.95 L (1.3-7.7) k/uL Lymphocytes # (Manual) 0.27 L 0.20 L (1.0-4.8) k/uL Glucose 161 H (74-99) mg/dL Total Protein 5.5 L (6.3-8.2) g/dL Albumin 3.0 L (3.5-5.0) g/dL Assessment and Plan Plan: Assessment and Recommendations: 1. Recurrent Admission with Clinical Dehydration secondary to decreased PO intake associated nausea and vomiting - Creatinine has improved after IV Hydration - PLan for Peg tube to prevent re-hospitalization and obtain adequate hydration and Nutrition 2. Head and Neck Cancer: - Status POst 3 cycles of Cisplatin with concurrent radiation therapy - Cisplatin on Hold this week, will resume at the direction of Dr. Son once discharged from hospital and re-evaluated as outpatient - Dr. Brewster will resume radiation therapy during hospital stay - Case discussed in detail with Dr. Brewster today 3. Atrial Fibrillation with RVR (Recent new onset) - Cardiology FOllowing - Recent CTA negative for PE (07/22/18) - Eliquis and Cardizem 4. Persistent Nausea and Vomiting: not relieved with current antiemetic regimen - Patient receives xanax, zofran PRN, Dex for 3 days post treatment and Emend prior to treatment - On further assessment appears that nausea is mainly precipated with increased oral secretions which is a common effect of radiation therapy to this area, will initiate Bentyl to help with this. - Will initiate PPI BID - Change Xanax PRN to Ativan (IV while in hospital till nausea improves) to help with anticipatory nausea and anxiety induced nausea during the feeling of "choking on secretions" - COntinue with a bowel regimen to prevent Constipation which may also be a common contributing factor - Increase PRN Zofran to 4mg q4prn Plan: - Continue with Aggressive Increase in Symptom control - IV Hydration - Peg tube Placement - Increase Activity Discussed case with Dr. Brewster.
[2018-08-07] MEDS ORDERED: MORPHINE SULFATE 2 MG/ML SYRINGE IV PRN (18:22)
[2018-08-07] MEDS ORDERED: LACTATED RINGERS 1,000 ML IV SCH (18:30)
[2018-08-07] MEDS ORDERED: METOPROLOL TARTRATE 25 MG TAB PO SCH (21:00)
[2018-08-08] MEDS: PANTOPRAZOLE 40 MG TABLET PO SCH ×2 (06:13→18:20)
[2018-08-08] MEDS: MAG HYDROX/AL HYDROX/SIMETH 30 ML, diphenhydrAMINE ELIXIR 75 MG, LIDOCAINE VISCOUS 30 ML PO SCH ×9 (06:38→18:12)
[2018-08-08] MEDS ORDERED: ceFAZolin IN SWFI 2 GM/20 ML SYRINGE IVP ONE (07:00)
[2018-08-08] MEDS ORDERED: IV FLUID CONTINUATION 1,000 ML IV ONE (08:32)
[2018-08-08] MEDS ORDERED: LACTATED RINGERS 1,000 ML IV ONE (09:16)
--- NOTE | 2018-08-08 09:27 | P.PCN ---
Date of Procedure: 08/08/18 Description of Procedure: Brief history: Patient is a 58-year-old pleasant who is currently undergoing treatment for a malignancy at the base of his tongue. He scheduled for EGD with PEG tube placement due to poor oral intake, weight loss and dysphagia. Procedure performed: EGD with PEG tube placement Preoperative diagnosis:weight loss, oropharyngeal dysphagia, poor oral intake. IV sedation by anesthesia. Estimated blood loss: Minimal. Procedure: After informed consent was obtained with the patient as well as the family the patient was brought into the endoscopy unit. IV conscious sedation was administered by anesthesia under continuous monitoring. The Olympus GF 190 video endoscope was inserted into the mouth and esophagus intubated without any difficulty and was gradually advanced to the stomach and duodenum. The bulb and second part of the duodenum was visualized which appeared normal. The scope at this time was withdrawn to the stomach adequately insufflated with air. Adequate transillumination was achieved onto the anterior abdominal wall. At the site of adequate transillumination and maximal finger indentation, on the anterior abdominal wall, this area was sterilely prepped and draped. One percent Lidocaine was infiltrated into the skin and a small incision was made. Trocar and cannula was passed through the incision into the stomach cavity. The trocar was removed. The insertion wire was passed through the cannula into the stomach. Insertion wire was snared and then the insertion wire, snare and endoscope were withdrawn from the mouth. The insertion wire was then past through a [employer] PEG tube. The insertion wire was then pulled while the PEG tubewas passed through the incision site. PEG tube was pulled until the internal bolster was sitting snugly against the gastric mucosa which was confirmed with repeat EGD. On repeat EGD the esophagus was intubated without any difficulty and was advanced into the stomach. The internal bumper appeared to be in secure position. The visualized portions of the antrum body cardia and fundus of the stomach appeared normal. The esophagus was carefully examined as the scope was gradually being withdrawn which appeared normal. At this time external bumper was placed on the PEG tube closer to the anterior abdominal wall at v cm canelo. The patient tolerated the procedure well. Impression: Successful [employer] PEG tube placement as described above. Recommendations: Findings of this examination were discussed with the patient's significant other. The patient will be started on tube feeds tomorrowand pills with flushes of water through the PEG tube tonight. Post-PEG tube orders were written. Okay for first dose of Eliquis tonight. Patient should be monitored until tomorrow morning for signs or symptoms of bleeding due to recent anticoagulation. Patient will need to be seen tomorrow and have bumper loosened and then can be discharged from the standpoint of gastroenterology.
[2018-08-08 10:16] LABS: WBC 1.4 k/uL (3.8-10.6)
[2018-08-08] MEDS: METOPROLOL TARTRATE 25 MG TAB PO SCH ×3 (12:09→23:00)
[2018-08-08] MEDS: amLODIPine 5 MG TAB PO SCH (12:09)
[2018-08-08] MEDS: SODIUM CHLORIDE 0.9% 1,000 ML IV SCH ×2 (12:10→23:00)
[2018-08-08] MEDS: PSYLLIUM HUSK 100% 6 GM PACKET PO SCH (12:10)
[2018-08-08] MEDS: CEVIMELINE 30 MG CAP PO SCH ×3 (12:10→23:00)
[2018-08-08] MEDS: ACETAMINOPHEN TAB 325 MG TAB PO PRN (12:14)
[2018-08-08] MEDS: APIXABAN 5 MG TAB PO SCH (19:59)
[2018-08-08] MEDS: FILGRASTIM-SNDZ 480 MCG/0.8 ML SYRINGE SQ SCH (19:59)
--- NOTE | 2018-08-09 00:05 | PN ---
PROGRESS NOTE DATE OF SERVICE: 08/08/2018 PRESENTING COMPLAINT: Tired. INTERVAL HISTORY: This patient with oral and neck cancer, underwent PEG tube placement earlier today. Lying in bed. PEG tube site doing fine. Otherwise comfortable. Also had acute renal failure from poor oral intake. at the bedside. Dr. Rollins is also present. REVIEW OF SYSTEMS: Done for constitutional, cardiovascular, GI, pulmonary; relevant findings as above. CURRENT MEDICATIONS: Reviewed. PHYSICAL EXAMINATION: VITAL SIGNS: Temperature 98.8, pulse 80, respiration 17, blood pressure 130/81, pulse ox 98% on room air. GENERAL APPEARANCE: Lying in bed, more comfortable. EYES: Pupils equal. Conjunctivae pale. NECK: JVD not raised. Mass not palpable. RESPIRATORY: Effort normal. LUNGS are clear. CARDIOVASCULAR: 1st and 2nd sounds normal. No edema. ABDOMEN: Soft, nontender. PEG tube in place. PSYCHIATRY: Alert and oriented x3. Mood and affect normal. INVESTIGATIONS: White count 1.4, hemoglobin 10.2, platelets 336. BUN and creatinine as of yesterday was 19, 1.13. ASSESSMENT: 1. Paroxysmal atrial fibrillation, currently in sinus rhythm. 2. Tumor mass of head and neck, undergoing chemo and radiation treatment with Dr. Son and Dr. Prosper Lay. 3. Bicytopenia from chemotherapy. 4. Acute renal failure, prerenal from poor oral intake, now resolved. 5. Anorexia from underlying tumor. 6. Hypoalbuminemia from moderate protein-calorie malnutrition from poor oral intake. 7. PEG tube placed today. PLAN: Care was discussed at length with the patient. Dr. Rollins also spoke to the binder caser, Madeline. The patient's Eliquis now may be resumed, looking at possible discharge tomorrow. Care was discussed with the patient and . Total time spent today was about 40 minutes with over 25 minutes of discussion. MMODL / IJN: [id number] /
[2018-08-09] MEDS: MAG HYDROX/AL HYDROX/SIMETH 30 ML, diphenhydrAMINE ELIXIR 75 MG, LIDOCAINE VISCOUS 30 ML PO SCH ×9 (06:40→15:10)
[2018-08-09] MEDS: PANTOPRAZOLE 40 MG TABLET PO SCH ×2 (06:40→18:53)
[2018-08-09] MEDS: CEVIMELINE 30 MG CAP PO SCH ×3 (08:54→21:36)
[2018-08-09] MEDS: amLODIPine 5 MG TAB PO SCH (08:54)
[2018-08-09] MEDS: APIXABAN 5 MG TAB PO SCH ×2 (08:54→21:19)
[2018-08-09] MEDS: METOPROLOL TARTRATE 25 MG TAB PO SCH ×3 (08:54→21:19)
[2018-08-09] MEDS: PSYLLIUM HUSK 100% 6 GM PACKET PO SCH (08:54)
[2018-08-09] MEDS: SODIUM CHLORIDE 0.9% 1,000 ML IV SCH (11:28)
[2018-08-09 12:20] LABS: Basophils % (A) 0 %; Eosinophils # (A) 0.1 k/uL (0-0.7); Eosinophils % (A) 2 %; HCT 30.4 % (39.0-53.0); HGB 10.7 gm/dL (13.0-17.5); Lymphocytes # (A) 0.3 k/uL (1.0-4.8); Lymphocytes % (A) 5 %; MCH 31.3 pg (25.0-35.0); MCHC 35.4 g/dL (31.0-37.0); MCV 88.4 fL (80.0-100.0); Mean Platelet Volume 7.1; Monocytes # (A) 0.4 k/uL (0-1.0); Monocytes % (A) 7 %; Neutrophils # (A) 4.4 k/uL (1.3-7.7); Neutrophils % (A) 85 %; Platelet Count 309 k/uL (150-450); RBC 3.44 m/uL (4.30-5.90); RDW 13.6 % (11.5-15.5); WBC 5.2 k/uL (3.8-10.6)
--- NOTE | 2018-08-09 14:08 | P.PN ---
Subjective Progress Note Date: 08/09/18 Principal diagnosis: A. fib with RVR, secondary to dehydration. Patient seen today in follow-up. He is status post PEG tube placement on 08/[address] Rollins. On growth factors for neutropenia status post chemotherapy. Patient still has one more chemotherapy and some radiation to complete for his head and neck cancer. Today he denies fevers, throat is sore, has mild/ moderate dysphagia and odynophagia, last time vomiting was yesterday, tolerating small amounts of liquid oral intake today, PEG tube feedings have not begun yet, he denies any unrealistic abdominal discomfort at the PEG insertion site, no distention, he is being treated for constipation, last bowel movement was over a week ago. He is fully ambulatory Objective - Vital Signs Vital signs: Vital Signs Temp 98.4 F 08/09/18 09:00 Pulse 76 08/09/18 12:00 Resp 18 08/09/18 12:00 BP 124/94 08/09/18 12:00 Pulse Ox 95 08/09/18 12:00 Intake & Output 08/08/18 08/09/18 08/09/18 18:59 06:59 18:59 Intake Total 2120 150 Output Total 2 Balance 2118 150 Weight 74.8 kg Intake: IV 800 Intake, IV Titration 600 Amount Sodium Chloride 0.9% 1, 600 000 ml @ 75 mls/hr IV . [id number] [facility] Rx#:[id number] Oral 720 150 Output: Urine 2 - Constitutional General appearance: Present: average body habitus, cooperative, no acute distress - EENT EENT Comment(s): Posterior oral redness, no thrush or ulcers Eyes: Present: anicteric sclerae, EOMI - Neck Details: Left anterior cervical mass is slightly smaller, softer, no longer fixed. Skin is showing signs of radiation exposure, redness, dry and flaking, no open lesions - Respiratory Respiratory: bilateral: CTA - Cardiovascular Rhythm: regular Heart sounds: normal: S1, S2 - Peripheral edema leg Peripheral Edema: bilateral: None - Gastrointestinal Gastrointestinal Comment(s): PEG tube dressing is clean, dry and intact, no unrealistic pain to palpation of the abdomen, no gross abdominal distention - Integumentary Integumentary: Present: normal - Neurologic Neurologic: Present: CNII-XII intact - Musculoskeletal Musculoskeletal: Present: generalized weakness, strength equal bilaterally - Psychiatric Psychiatric Comment(s): Flat affect, this is normal for patient. Psychiatric: Present: A&O x's 3, intact judgment & insight - Labs CBC & Chem 7: 08/09/18 10:48 08/06/18 13:54 Labs: Abnormal Lab Results - Last 24 Hours (Table) 08/09/18 Range/Units 10:48 RBC 3.44 L (4.30-5.90) m/uL Hgb 10.7 L (13.0-17.5) gm/dL Hct 30.4 L (39.0-53.0) % Assessment and Plan (1) New onset a-fib Narrative/Plan: Likely related to dehydration which is secondary to chemotherapy as well as malignancy of the head and neck. Patient is on eliquis and is being treated with medications by Cardiology. Current Visit: Yes Status: Acute Priority: High Code(s): I48.91 - UNSPECIFIED ATRIAL FIBRILLATION SNOMED Code(s): 32445181 (2) Dysphagia Narrative/Plan: From malignancy and treatment of malignancy Current Visit: Yes Status: Acute Priority: High Code(s): R13.10 - DYSPHAGIA, UNSPECIFIED SNOMED Code(s): 75799755 (3) Leukopenia Narrative/Plan: Secondary to chemotherapy. Continue G-CSF to discharge. Current Visit: Yes Status: Acute Priority: High Code(s): D72.819 - DECREASED WHITE BLOOD CELL COUNT, UNSPECIFIED SNOMED Code(s): 28067130 (4) Dehydration Narrative/Plan: Secondary to dysphagia and odynophagia from malignancy and treatment of malignancy, also nausea and vomiting from chemotherapy. PEG tube has been inserted. Hopefully they will start feedings today to see if patient tolerates. Oral intake as tolerated. Current Visit: Yes Status: Acute Priority: High Code(s): E86.0 - DEHYDRATION SNOMED Code(s): 19262020 (5) Head and neck cancer Narrative/Plan: Chemotherapy a point will be adjusted. Plan is to continue and complete therapy with curative intent. Current Visit: No Status: Acute Priority: High Code(s): C76.0 - MALIGNANT NEOPLASM OF HEAD, FACE AND NECK SNOMED Code(s): 676601822 (6) Nausea and vomiting Narrative/Plan: Improved, related to chemotherapy and sensations from difficulty swallowing. Continue aggressive treatment of with supportive medications Current Visit: Yes Status: Acute Priority: High Code(s): R11.2 - NAUSEA WITH VOMITING, UNSPECIFIED SNOMED Code(s): 71371671
[2018-08-09] MEDS ORDERED: MAGNESIUM CITRATE 296 ML BOTTLE PO ONE (14:46)
[2018-08-09] MEDS: ACETAMINOPHEN TAB 325 MG TAB PO PRN ×2 (15:29→21:29)
[2018-08-09] MEDS: FILGRASTIM-SNDZ 480 MCG/0.8 ML SYRINGE SQ SCH (19:00)
--- NOTE | 2018-08-09 20:54 | PN ---
PROGRESS NOTE DATE OF SERVICE: 08/09/2018 PRESENTING COMPLAINT: PEG tube. INTERVAL HISTORY: This patient with oral neck cancer, underwent PEG tube placement, started at 10 mL an hour today. Otherwise comfortable. No pain. No new issues. Has been out of bed. REVIEW OF SYSTEMS: Done for constitutional, cardiovascular, GI, pulmonary; relevant findings as above. CURRENT MEDICATIONS: Reviewed. PHYSICAL EXAMINATION: VITAL SIGNS: Temperature 98.4, pulse 79, respiration 18, blood pressure 135/77, pulse ox 96% on room air. GENERAL APPEARANCE: Lying in bed, comfortable. EYES: Pupils are equal. Conjunctivae pale. NECK: JVD not raised. Left neck mass is palpable. RESPIRATORY effort normal. LUNGS are clear. CARDIOVASCULAR: 1st and 2nd sounds, no edema. ABDOMEN: Soft, nontender. PEG tube in place. PSYCHIATRY: Alert and oriented x3. Mood and affect normal. INVESTIGATIONS: White count 5.2, hemoglobin 10.7. ASSESSMENT: 1. Paroxysmal atrial fibrillation currently in sinus rhythm. 2. Tumor of head and neck, undergoing chemo and radiation treatment by Dr. Son and Dr. Prosper Lay. 3. Bicytopenia from chemotherapy. 4. Acute renal failure prerenal from poor oral intake, now resolved. 5. Anorexia from underlying tumor. 6. Hypoalbuminemia from moderate protein-calorie malnutrition from poor oral intake. 7. PEG tube feeding started today. PLAN: PEG tube feeding is being advanced. Other medications to continue. MMODL / IJN: [id number] /
--- NOTE | 2018-08-10 02:04 | P.PN ---
Subjective Progress Note Date: 08/09/18 Principal diagnosis: Cancer, oropharyngeal dysphagia Patient doing well. No pain or bleeding at PEG tube site. Objective - Vital Signs Vital signs: Vital Signs Temp 99.9 F H 08/09/18 20:00 Pulse 77 08/09/18 20:00 Resp 18 08/09/18 20:00 BP 147/90 08/09/18 20:00 Pulse Ox 95 08/09/18 20:00 Intake & Output 08/09/18 08/09/18 08/10/18 06:59 18:59 06:59 Intake Total 150 240 20 Output Total 2 Balance 150 240 18 Intake: Oral 150 240 Tube Feeding 20 Output: Urine 2 Other: # Voids 1 - Exam On physical examination, patient appears comfortable in no apparent distress. HEAD: Normocephalic, atraumatic. EYES: No scleral icterus. No conjunctival injection. MOUTH:Tongue midline. NECK: Trachea midline, no gross abnormalities. CHEST: Clear to auscultation with no wheezing or rhonchi appreciated. HEART: Regular rate and rhythm. ABDOMEN: Soft, PEG tube site intact with bumper loosened. Bowel sounds are positive. No organomegaly. No guarding or rigidity. EXTREMITIES: No pedal edema. SKIN: No rashes, no jaundice. NEUROLOGIC: Alert and oriented x3. No focal deficits. - Labs CBC & Chem 7: 08/09/18 10:48 08/06/18 13:54 Labs: Abnormal Lab Results - Last 24 Hours (Table) 08/09/18 Range/Units 10:48 RBC 3.44 L (4.30-5.90) m/uL Hgb 10.7 L (13.0-17.5) gm/dL Hct 30.4 L (39.0-53.0) % Lymphocytes # 0.3 L (1.0-4.8) k/uL Assessment and Plan (1) Dysphagia Narrative/Plan: Oropharyngeal dysphagia secondary to malignancy. Patient is status post PEG tube placement with bumper loosened today. Current Visit: Yes Status: Acute Priority: High Code(s): R13.10 - DYSPHAGIA, UNSPECIFIED SNOMED Code(s): 67603679 (2) Atrial fibrillation Current Visit: Yes Status: Acute Code(s): I48.91 - UNSPECIFIED ATRIAL FIBRILLATION SNOMED Code(s): 17112283 Plan: Supportive care Okay for diet as tolerated PEG tube feeds Local PEG site care Thank you for allowing us to participate in the care of this patient, we'll standby please call us back with any questions or concerns
[2018-08-10] MEDS: SODIUM CHLORIDE 0.9% 1,000 ML IV SCH (06:03)
[2018-08-10 06:12] LABS: HCT 30.2 % (39.0-53.0); HGB 10.5 gm/dL (13.0-17.5); MCH 30.8 pg (25.0-35.0); MCHC 34.9 g/dL (31.0-37.0); MCV 88.3 fL (80.0-100.0); Mean Platelet Volume 6.3; Platelet Count 308 k/uL (150-450); RBC 3.42 m/uL (4.30-5.90); RDW 14.3 % (11.5-15.5)
[2018-08-10] MEDS: PANTOPRAZOLE 40 MG TABLET PO SCH ×2 (07:08→16:27)
[2018-08-10] MEDS: MAG HYDROX/AL HYDROX/SIMETH 30 ML, diphenhydrAMINE ELIXIR 75 MG, LIDOCAINE VISCOUS 30 ML PO SCH ×9 (07:09→16:27)
[2018-08-10 07:39] LABS: Band Neutrophils % 50 %; Eosinophils # (M) 0.36 k/uL (0-0.7); Lymphocytes # (M) 0.63 k/uL (1.0-4.8); Metamyelocytes # (M) 0.27 k/uL (0); Metamyelocytes % 3 %; Monocytes # (M) 0.45 k/uL (0-1.0); Neutrophils % (M) 32 %; Nucleated Red Blood Cells 0 /100 WBC (0-0); Total Cells Counted 200
[2018-08-10 07:40] LABS: Polychromasia Present
[2018-08-10 07:42] LABS: Toxic Vacuolation Present
[2018-08-10] MEDS: PSYLLIUM HUSK 100% 6 GM PACKET PO SCH (08:11)
[2018-08-10] MEDS: amLODIPine 5 MG TAB PO SCH (09:16)
[2018-08-10] MEDS: CEVIMELINE 30 MG CAP PO SCH ×3 (09:16→21:11)
[2018-08-10] MEDS: METOPROLOL TARTRATE 25 MG TAB PO SCH ×3 (09:16→21:11)
[2018-08-10] MEDS: APIXABAN 5 MG TAB PO SCH ×2 (09:16→21:11)
--- NOTE | 2018-08-10 12:23 | P.PN ---
Subjective Progress Note Date: 08/10/18 Principal diagnosis: A. fib with RVR, secondary to dehydration. Patient seen today in follow-up. He has started PEG feeding, currently at 30cc/ hr, he is tolerating well, he medicates for nausea, denies vomiting, he did have a BM this AM. Neutropenia status post chemotherapy is resolved with GCS- F. Denies fevers, persistent mild/moderate dysphagia and odynophagia, tolerating small amounts of liquid oral intake, denies any unrealistic abdominal discomfort at the PEG insertion site, no abd distention, he walked a lot yesterday. Objective - Vital Signs Vital signs: Vital Signs Temp 98.7 F 08/10/18 11:50 Pulse 71 08/10/18 11:50 Resp 18 08/10/18 11:50 BP 129/75 08/10/18 11:50 Pulse Ox 95 08/10/18 11:50 Intake & Output 08/09/18 08/10/18 08/10/18 18:59 06:59 18:59 Intake Total 240 180 280 Output Total 2 Balance 240 178 280 Weight 75 kg Intake: Oral 240 Tube Feeding 180 280 Output: Urine 2 Other: # Voids 1 - Constitutional General appearance: Present: average body habitus, cooperative, no acute distress - EENT Eyes: Present: anicteric sclerae, EOMI ENT: Present: hearing grossly normal - Respiratory Respiratory: bilateral: CTA - Cardiovascular Rhythm: regular Heart sounds: normal: S1, S2 Abnormal Heart Sounds: Absent: systolic murmur, diastolic murmur, rub, S3 Gallop , S4 Gallop, click, other - Peripheral edema leg Peripheral Edema: bilateral: None - Gastrointestinal General gastrointestinal: Present: normal bowel sounds, soft, tenderness (mild, at PEG insertion site, no drainage on dressings) - Integumentary Integumentary: Present: normal - Neurologic Neurologic: Present: CNII-XII intact - Musculoskeletal Musculoskeletal: Present: strength equal bilaterally - Labs CBC & Chem 7: 08/10/18 05:29 08/06/18 13:54 Labs: Abnormal Lab Results - Last 24 Hours (Table) 08/09/18 08/10/18 Range/Units 10:48 05:29 RBC 3.44 L 3.42 L (4.30-5.90) m/uL Hgb 10.7 L 10.5 L (13.0-17.5) gm/dL Hct 30.4 L 30.2 L (39.0-53.0) % Lymphocytes # 0.3 L (1.0-4.8) k/uL Lymphocytes # (Manual) 0.63 L (1.0-4.8) k/uL Metamyelocytes # (Man) 0.27 H (0) k/uL Assessment and Plan (1) New onset a-fib Narrative/Plan: Likely related to dehydration which is secondary to chemotherapy as well as malignancy of the head and neck. Ok to continue eliquis for now as pt still has treatment to complete. He will follow with Cardiology. Current Visit: Yes Status: Acute Priority: High Code(s): I48.91 - UNSPECIFIED ATRIAL FIBRILLATION SNOMED Code(s): 23323043 (2) Dysphagia Narrative/Plan: From malignancy and treatment of malignancy, s/p PEG. Pt can handle small amt of liquid, he will cont to consume to tolerance Current Visit: Yes Status: Acute Priority: High Code(s): R13.10 - DYSPHAGIA, UNSPECIFIED SNOMED Code(s): 34828242 (3) Leukopenia Narrative/Plan: WBC/ANC WNL. Will give last dose of GCS-F today Current Visit: Yes Status: Acute Priority: High Code(s): D72.819 - DECREASED WHITE BLOOD CELL COUNT, UNSPECIFIED SNOMED Code(s): 73987902 (4) Dehydration Narrative/Plan: Improved, PEG feed initiated Current Visit: Yes Status: Acute Priority: High Code(s): E86.0 - DEHYDRATION SNOMED Code(s): 49220679 (5) Head and neck cancer Narrative/Plan: Plan is to continue and complete therapy with curative intent. Final cycle of chemo was due last Wed We discussed possibility of dose change or increased supportive care post treatment. That decision will be made by pt and primary Oncologist. Will get appt/f/u and call pt with those appts if he is discharged Current Visit: No Status: Acute Priority: High Code(s): C76.0 - MALIGNANT NEOPLASM OF HEAD, FACE AND NECK SNOMED Code(s): 668901266 (6) Nausea and vomiting Narrative/Plan: Managed on antiemetics. Pt stated having ODT antiemetic at home. Recommended that he take prophylactically 1-3 times a day. Current Visit: Yes Status: Acute Priority: High Code(s): R11.2 - NAUSEA WITH VOMITING, UNSPECIFIED SNOMED Code(s): 62146485
[2018-08-10] MEDS: FILGRASTIM-SNDZ 480 MCG/0.8 ML SYRINGE SQ SCH (17:32)
--- NOTE | 2018-08-10 21:43 | PN ---
PROGRESS NOTE DATE OF SERVICE: 08/10/2018. PRESENTING COMPLAINT: Tired. INTERVAL HISTORY: This is a patient with oral and neck cancer, underwent PEG tube placement for poor oral intake. tolerating tube feeding at 40 mL/hour. Patient had a good bowel movement today. No pain, awaiting tube feeding to become . Also awaiting insurance clearance. REVIEW OF SYSTEMS: Done for constitutional, cardiovascular, GI, pulmonary; relevant findings as above. CURRENT MEDICATIONS: Reviewed. PHYSICAL EXAMINATION: Temperature 98.2, pulse 83, respiratory rate 18, blood pressure 144/91, pulse ox 96 percent on room air. GENERAL APPEARANCE: Lying in bed, awake. EYES: Pupils equal. Conjunctivae pale. NECK: JVD not raised. Left neck mass present. RESPIRATORY effort normal. LUNGS: Clear. CARDIOVASCULAR: 1st and 2nd sounds normal. No edema. ABDOMEN: Soft, nontender. PEG tube in place. PSYCHIATRY: Alert and oriented x3. Mood and affect normal. INVESTIGATIONS: White count 9, hemoglobin 10.5. ASSESSMENT AND PLAN: 1. Paroxysmal atrial fibrillation, currently in sinus rhythm. 2. Tumor of head and neck, undergoing chemo and radiation treatment with Dr. Son and Dr. Prosper Lay. 3. Bicytopenia from chemotherapy, improved. 4. Acute renal failure prerenal from poor oral intake, now resolved. 5. Anorexia from underlying malignancy. 6. Hypoalbuminemia from moderate protein-calorie malnutrition with poor oral intake. 7. PEG tube feeding is being advanced. PLAN: Hopefully hoping the patient can be discharged tomorrow. Care was discussed with the patient. Overall doing well. MMODL / IJN: [id number] /
[2018-08-11] MEDS: MAG HYDROX/AL HYDROX/SIMETH 30 ML, diphenhydrAMINE ELIXIR 75 MG, LIDOCAINE VISCOUS 30 ML PO SCH ×9 (04:30→16:18)
[2018-08-11 07:48] LABS: HCT 28.6 % (39.0-53.0); HGB 10.1 gm/dL (13.0-17.5); MCH 31.1 pg (25.0-35.0); MCHC 35.2 g/dL (31.0-37.0); MCV 88.3 fL (80.0-100.0); Mean Platelet Volume 6.5; Platelet Count 285 k/uL (150-450); RBC 3.24 m/uL (4.30-5.90); RDW 13.9 % (11.5-15.5); WBC 18.7 k/uL (3.8-10.6)
[2018-08-11 08:25] LABS: Band Neutrophils % 11 %; Eosinophils # (M) 0.19 k/uL (0-0.7); Lymphocytes # (M) 0.75 k/uL (1.0-4.8); Metamyelocytes # (M) 0.75 k/uL (0); Metamyelocytes % 4 %; Monocytes # (M) 1.31 k/uL (0-1.0); Myelocytes # (M) 0.56 k/uL (0); Myelocytes % 3 %; Neutrophils % (M) 72 %; Nucleated Red Blood Cells 0 /100 WBC (0-0); Total Cells Counted 200
[2018-08-11 08:26] LABS: Poikilocytosis (M) Present; Polychromasia Present; Toxic Granulation Present
[2018-08-11] MEDS: PSYLLIUM HUSK 100% 6 GM PACKET PO SCH (08:50)
[2018-08-11] MEDS: METOPROLOL TARTRATE 25 MG TAB PO SCH ×2 (08:54→16:50)
[2018-08-11] MEDS: APIXABAN 5 MG TAB PO SCH (08:54)
[2018-08-11] MEDS: CEVIMELINE 30 MG CAP PO SCH ×2 (08:54→16:51)
[2018-08-11] MEDS: amLODIPine 5 MG TAB PO SCH (08:54)
[2018-08-11] MEDS: PANTOPRAZOLE 40 MG TABLET PO SCH ×2 (08:54→16:50)
[2018-08-11 09:31] VITALS: RESP 18
--- NOTE | 2018-08-11 10:53 | P.PN ---
Subjective Progress Note Date: 08/11/18 Principal diagnosis: A. fib with RVR, secondary to dehydration. Pt seen in f/u, he looks well today, nausea is controlled, no vomiting, has had a BM, tolerating PG feed with minimal residual per nursing, no abd pain, indigestion, bleeding or pain. Objective - Vital Signs Vital signs: Vital Signs Temp 98.2 F 08/11/18 08:00 Pulse 81 08/11/18 08:00 Resp 18 08/11/18 08:00 BP 126/84 08/11/18 08:00 Pulse Ox 94 L 08/11/18 08:00 Intake & Output 08/10/18 08/11/18 08/11/18 18:59 06:59 18:59 Intake Total 640 50 Balance 640 50 Weight 75 kg Intake: Oral 240 Tube Feeding 400 50 Other: Voiding Method Toilet Toilet - Constitutional General appearance: Present: average body habitus, cooperative, no acute distress - EENT Eyes: Present: anicteric sclerae, EOMI ENT: Present: hearing grossly normal - Respiratory Respiratory: bilateral: CTA - Cardiovascular Heart sounds: normal: S1, S2 - Peripheral edema leg Peripheral Edema: bilateral: None - Gastrointestinal Gastrointestinal Comment(s): PEG insertion mildly tender, dressing is clean and dry, no distension, BS +, General gastrointestinal: Present: soft - Integumentary Integumentary: Present: normal - Neurologic Neurologic: Present: CNII-XII intact - Musculoskeletal Musculoskeletal: Present: strength equal bilaterally - Psychiatric Psychiatric: Present: A&O x's 3, intact judgment & insight - Labs CBC & Chem 7: 08/11/18 06:52 08/06/18 13:54 Labs: Abnormal Lab Results - Last 24 Hours (Table) 08/11/18 Range/Units 06:52 WBC 18.7 H (3.8-10.6) k/uL RBC 3.24 L (4.30-5.90) m/uL Hgb 10.1 L (13.0-17.5) gm/dL Hct 28.6 L (39.0-53.0) % Neutrophils # (Manual) 15.50 H (1.3-7.7) k/uL Lymphocytes # (Manual) 0.75 L (1.0-4.8) k/uL Monocytes # (Manual) 1.31 H (0-1.0) k/uL Metamyelocytes # (Man) 0.75 H (0) k/uL Myelocytes # (Manual) 0.56 H (0) k/uL Assessment and Plan (1) New onset a-fib Narrative/Plan: Likely related to dehydration which is secondary to chemotherapy as well as malignancy of the head and neck. Ok to continue eliquis for now as pt still has treatment to complete. He will follow with Cardiology. Current Visit: Yes Status: Acute Priority: High Code(s): I48.91 - UNSPECIFIED ATRIAL FIBRILLATION SNOMED Code(s): 74896771 (2) Dysphagia Narrative/Plan: From malignancy and treatment of malignancy, s/p PEG. Pt can handle small amt of liquid, he will cont to consume foods/fluids orally to tolerance Current Visit: Yes Status: Acute Priority: High Code(s): R13.10 - DYSPHAGIA, UNSPECIFIED SNOMED Code(s): 87168549 (3) Leukopenia Narrative/Plan: Secondary to chemo. GCSF discontinued today Current Visit: Yes Status: Resolved Priority: High Code(s): D72.819 - DECREASED WHITE BLOOD CELL COUNT, UNSPECIFIED SNOMED Code(s): 91258720 (4) Dehydration Narrative/Plan: Case mgmt working with pt to get PEG supplies and feeding arranged for home. Pt will be discharged to home once plan in place. Current Visit: Yes Status: Resolved Priority: High Code(s): E86.0 - DEHYDRATION SNOMED Code(s): 20295097 (5) Head and neck cancer Narrative/Plan: [place] to complete treatment. Need to clarify with Dr. Son when he would like final chemo to be given. Pt has just over a week of radiation to complete which will be managed by Rad/Onc Current Visit: No Status: Acute Priority: High Code(s): C76.0 - MALIGNANT NEOPLASM OF HEAD, FACE AND NECK SNOMED Code(s): 508381728 (6) Nausea and vomiting Narrative/Plan: Controlled at this time. Recommended pt to take antiemetics 1-3 times a day and as needed. Current Visit: Yes Status: Acute Priority: High Code(s): R11.2 - NAUSEA WITH VOMITING, UNSPECIFIED SNOMED Code(s): 61801933
[2018-08-11 13:18] VITALS: BMI 23.7
[2018-08-11] MEDS: ACETAMINOPHEN TAB 325 MG TAB PO PRN (16:50)
[2018-08-11 17:18] VITALS: BP 137/84; PULSE 77; TEMP 98.1
--- NOTE | 2018-08-12 06:05 | DS ---
DISCHARGE SUMMARY DATE OF ADMISSION: 08/05/2018 DATE OF DISCHARGE: 08/11/2018 FINAL DIAGNOSES: 1. Paroxysmal atrial fibrillation, now in sinus rhythm. 2. Tumor of head and neck, undergoing chemo and radiation treatment with Dr. Son and Dr. Prosper Lay. 3. Bicytopenia from chemotherapy, resolved. 4. Acute renal failure prerenal from poor oral intake, present on admission, now resolved. 5. Anorexia from underlying malignancy. 6. Hypoalbuminemia from moderate protein-calorie malnutrition with poor oral intake. PROCEDURE: PEG tube placed. CONSULTATIONS: Dr. Hendrickson from Cardiology; Dr. Rollins from GI; Dr. Prosper Lay from Radiation Oncology; Dr. Can from Oncology. HOSPITAL COURSE: This patient is undergoing head and neck cancer treatment, not able to eat, presented with acute renal failure. Creatinine was up to 1.52, did come down to 1.13 with hydration. Because of failing health, not able to eat, a PEG tube was placed, was tolerating his tube feeding. I spoke to Madeline, secondary social studies teacher, complex case manager, who is coordinating the discharge. While that is being done, the patient has been doing good. PHYSICAL EXAMINATION: On examination, temperature 98.1, pulse 77, respiration 18, blood pressure 137/84, pulse ox 94% on room air. On last examination: LUNGS: Fair entry. CARDIOVASCULAR: First and second sounds normal. ABDOMEN: Soft, nontender. PEG tube in place. Dr. Rollins put in the PEG tube. DISCHARGE MEDICATIONS: 1. Xanax 0.25 p.o. q.8 p.r.n. 2. Evoxac 30 mg p.o. t.i.d. 3. Magic mouthwash t.i.d. 4. Zofran 4 mg q.4 p.r.n. 5. Eliquis 5 mg b.i.d. 6. Lopressor 25 mg . 7. Metamucil 6 grams p.o. daily. 8. Norvasc 5 mg p.o. daily. Follow up with Dr. Traore on 08/14/2018; Dr. Hendrickson on 08/21/2018; Dr. Son on 08/14/2018. Tube feeding recommendations for home: One bolus feed, one can TwoCal and 90 mL free water flush before and after feeding 5 times a day. [facility] is involved. MMODL / IJN: [id number] /
== END 2018-08-11 17:36 | disposition home or self-care (01) | DRG 309 ==
LOC: EC 16:21 → 3SCARD 16:58
PROVIDERS: ADMIT Hospitalist; ATTEND Hospitalist
PROC: D90 Radiation Therapy, Ear, Nose, Mouth and Throat, Beam Radiation (ICD-10-PCS; 2018-08-05)
PROC: 0DH63UZ Insertion of Feeding Device into Stomach, Percutaneous Approach (ICD-10-PCS; principal; 2018-08-08 08:00)
DX: I48.0 Paroxysmal atrial fibrillation (principal); E44.0 Moderate protein-calorie malnutrition; N17.9 Acute kidney failure, unspecified; R55 Syncope and collapse; D70.1 Agranulocytosis secondary to cancer chemotherapy; R13.12 Dysphagia, oropharyngeal phase; D64.81 Anemia due to antineoplastic chemotherapy; C01 Malignant neoplasm of base of tongue; I10 Essential (primary) hypertension; D63.0 Anemia in neoplastic disease; E86.0 Dehydration; T45.1X5A Adverse effect of antineoplastic and immunosuppressive drugs, initial encounter; F41.9 Anxiety disorder, unspecified; R11.2 Nausea with vomiting, unspecified; Z79.01 Long term (current) use of anticoagulants; Z79.899 Other long term (current) drug therapy; Z82.49 Family history of ischemic heart disease and other diseases of the circulatory system
CPT/HCPCS: 36415; 43246; 71046; 77300; 77336; 77338; 77386; 80053; 81001; 82550; 82553; 83735; 84134; 84484; 85025; 85610; 85730; 93005; 96361; 96365; 96366; 99285

== ENCOUNTER 2018-08-17 06:09 | Inpatient (IN) | payer OTHER ==
[2018-08-17] MEDS ORDERED: SODIUM CHLORIDE 0.9% 1,000 ML IV ONE (06:51)
[2018-08-17] MEDS ORDERED: PANTOPRAZOLE 40 MG/10 ML VIAL IVP STA (06:51)
--- NOTE | 2018-08-17 06:55 | ED ---
General Adult HPI - General Source: patient, family, RN notes reviewed, old records reviewed Mode of arrival: ambulatory Limitations: no limitations <Luis Enrique Kaye - Last Filed: 08/17/18 06:55> <Luis Enrique Chavez - Last Filed: 08/17/18 11:55> - General Chief complaint: Syncope Stated complaint: SYNCOPE Time Seen by Provider: 08/17/18 06:18 - History of Present Illness Initial comments: 58-year-old male presenting with syncopal episode. Patient has had 3 syncopal episodes in the past one month. He is currently undergoing treatment for oral cancer. He has history of atrial fibrillation and is on Eliquis. Uncertain if he hit his head when he fell. He denies headache or neck pain at the time my evaluation. Denies preceding symptoms including chest pain or palpitations. Denies any pain complaints at this time my evaluation. He has a PEG tube which was placed approximately one week ago. His does note that he had some dark red discharge from the site as well as some red vomit. Patient denies fever or chills. Denies dysuria. Denies cough or URI symptoms. Denies headache. Denies focal numbness or weakness. Patient is also 3 days status post his last chemotherapy treatment. (Luis Enrique Kaye) - Related Data Home Medications Medication Instructions Recorded Confirmed ALPRAZolam [Xanax] 0.25 mg PO Q8HR PRN 07/21/18 08/05/18 Cevimeline [Evoxac] 30 mg PO TID 07/21/18 08/05/18 Magic Mouthwash 15 ml PO AC-TID 07/21/18 08/05/18 Ondansetron [Zofran ODT] 4 mg PO Q4H PRN 07/21/18 08/05/18 Previous Rx's Medication Instructions Recorded Apixaban [Eliquis] 5 mg PO BID #60 tab 07/24/18 Metoprolol Tartrate [Lopressor] 25 mg PO TID #90 tab 08/11/18 Psyllium Husk 100% [Metamucil 6 gm PO DAILY packet 08/11/18 Packet] amLODIPine [Norvasc] 5 mg PO DAILY #30 tab 08/11/18 Allergies Allergy/AdvReac Type Severity Reaction Status Date / Time No Known Allergies Allergy Verified 08/17/18 06:16 Review of Systems ROS Other: All systems not noted in ROS Statement are negative. <Luis Enrique Kaye Yuliana - Last Filed: 08/17/18 06:55> ROS Other: All systems not noted in ROS Statement are negative. <Luis Enrique Chavez - Last Filed: 08/17/18 11:55> ROS Statement: Those systems with pertinent positive or pertinent negative responses have been documented in the HPI. 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 History of Any Multi-Drug Resistant Organisms: None Reported Past Surgical History: Tonsillectomy Additional Past Surgical History / Comment(s): Bronchoscopies x2 with base of tongue bx/lesion removal per spouse, nasal fracture with surgery. Additional Past Anesthesia/Blood Transfusion Reaction / Comment(s): Pt was hypertensive once. Past Psychological History: Anxiety Smoking Status: Never smoker Past Alcohol Use History: None Reported Past Drug Use History: Marijuana - Past Family History Father Family Medical History: Myocardial Infarction ([place]) Additional Family Medical History / Comment(s): Father of heart problems. Mother Family Medical History: Myocardial Infarction ([place]) Additional Family Medical History / Comment(s): Mother of heart problems. <Luis Enrique Kaye Yuliana - Last Filed: 08/17/18 06:55> General Exam Limitations: no limitations General appearance: alert, lethargic Head exam: Present: atraumatic, normocephalic Eye exam: Present: normal appearance, PERRL, EOMI ENT exam: Present: mucous membranes dry Neck exam: Present: lymphadenopathy (Large mass supraclavicular, left side), other Respiratory exam: Present: normal lung sounds bilaterally. Absent: respiratory distress, wheezes Cardiovascular Exam: Present: regular rate, normal rhythm GI/Abdominal exam: Present: soft, other (Dark gastric contents within PEG tube, minimal bleeding at the PEG tube site, no surrounding erythema or induration.). Absent: distended, tenderness Extremities exam: Present: normal inspection, normal capillary refill. Absent: pedal edema Neurological exam: Present: alert, oriented X3, CN II-XII intact. Absent: motor sensory deficit Skin exam: Present: warm, dry, pallor. Absent: cyanosis, diaphoretic <Luis Enrique Kaye - Last Filed: 08/17/18 06:55> Course <Luis Enrique Kaye - Last Filed: 08/17/18 06:55> <Luis Enrique Chavez - Last Filed: 08/17/18 11:55> Vital Signs 08/17/18 08/17/18 08/17/18 06:12 06:29 06:30 Temperature 98.2 F Pulse Rate 80 63 Respiratory 16 12 Rate Blood Pressure 124/80 O2 Sat by Pulse 100 100 100 Oximetry 08/17/18 08/17/18 08/17/18 06:40 06:57 07:00 Temperature Pulse Rate 79 59 L 61 Respiratory 17 12 Rate Blood Pressure O2 Sat by Pulse 98 100 98 Oximetry 08/17/18 08/17/18 08/17/18 07:07 07:10 07:20 Temperature Pulse Rate 75 61 61 Respiratory 16 19 24 Rate Blood Pressure 129/94 129/94 129/94 O2 Sat by Pulse 99 99 99 Oximetry 08/17/18 08/17/18 08/17/18 07:30 07:40 07:50 Temperature Pulse Rate 59 L 62 Respiratory 10 L 16 Rate Blood Pressure 129/94 129/94 129/94 O2 Sat by Pulse 99 98 Oximetry 08/17/18 08/17/18 08/17/18 08:00 08:04 09:00 Temperature 97.4 F L Pulse Rate 75 64 58 L Respiratory 17 18 16 Rate Blood Pressure 142/92 142/92 144/105 O2 Sat by Pulse 99 98 99 Oximetry 08/17/18 10:00 Temperature Pulse Rate 57 L Respiratory 18 Rate Blood Pressure 143/88 O2 Sat by Pulse 97 Oximetry - Reevaluation(s) Reevaluation #1: 08/17/18 0700 Patient's care is signed out to Dr. Chavez at shift change awaiting laboratory studies, x-ray, and computed tomography scan. (Luis Enrique Kaye) Reevaluation #2: 08/17/18 11:53 The patient was endorsed me by Dr. Kaye at our shift change pending labs and imaging. Patient does have evidence of a syncopal episode evidence of renal insufficiency and GI bleeding. He does have a drop in his hemoglobin level. I did discuss [employer] the patient family he will be admitted. 08/17/18 11:54 (Luis Enrique Chavez) EKG Findings - EKG Comments: EKG Findings:: EKG: Normal sinus rhythm, rate of 65, RI interval 132, QRS duration 102, QTC 422, no ST segment elevation or depression. <Luis Enrique Kaye - Last Filed: 08/17/18 06:55> Medical Decision Making - Lab Data Result diagrams: 08/17/18 06:30 08/17/18 06:30 <Luis Enrique Chavez - Last Filed: 08/17/18 11:55> - Lab Data Lab Results 08/17/18 08/17/18 08/17/18 Range/Units 06:30 06:30 06:30 WBC 9.6 (3.8-10.6) k/uL RBC 3.01 L (4.30-5.90) m/uL Hgb 9.4 L (13.0-17.5) gm/dL Hct 26.7 L (39.0-53.0) % MCV 88.9 (80.0-100.0) fL MCH 31.2 (25.0-35.0) pg MCHC 35.1 (31.0-37.0) g/dL RDW 13.7 (11.5-15.5) % Plt Count 194 (150-450) k/uL Neutrophils % 94 % Lymphocytes % 2 % Monocytes % 4 % Eosinophils % 0 % Basophils % 0 % Neutrophils # 9.0 H (1.3-7.7) k/uL Lymphocytes # 0.2 L (1.0-4.8) k/uL Monocytes # 0.4 (0-1.0) k/uL Eosinophils # 0.0 (0-0.7) k/uL Basophils # 0.0 (0-0.2) k/uL PT (9.0-12.0) sec INR (<1.2) APTT (22.0-30.0) sec Sodium 136 L (137-145) mmol/L Potassium 5.2 H (3.5-5.1) mmol/L Chloride 100 (98-107) mmol/L Carbon Dioxide 26 (22-30) mmol/L Anion Gap 10 mmol/L BUN 71 H (9-20) mg/dL Creatinine 1.37 H (0.66-1.25) mg/dL Est GFR (CKD-EPI)AfAm 65 (>60 ml/min/1.73 sqM) Est GFR (CKD-EPI)NonAf 57 (>60 ml/min/1.73 sqM) Glucose 185 H (74-99) mg/dL Calcium 8.8 (8.4-10.2) mg/dL Magnesium 1.7 (1.6-2.3) mg/dL Total Bilirubin 0.6 (0.2-1.3) mg/dL AST 18 (17-59) U/L ALT 33 (21-72) U/L Alkaline Phosphatase 73 (38-126) U/L Total Creatine Kinase <20 L (55-170) U/L CK-MB (CK-2) <0.2 (0.0-2.4) ng/mL CK-MB (CK-2) Rel Index Troponin I <0.012 (0.000-0.034) ng/mL Total Protein 5.8 L (6.3-8.2) g/dL Albumin 3.4 L (3.5-5.0) g/dL Urine Color Urine Appearance (Clear) Urine pH (5.0-8.0) Ur Specific [place] (1.001-1.035) Urine Protein (Negative) Urine Glucose (UA) (Negative) Urine Ketones (Negative) Urine Blood (Negative) Urine Nitrite (Negative) Urine Bilirubin (Negative) Urine Urobilinogen (<2.0) mg/dL Ur Leukocyte Esterase (Negative) Gastric Occult Blood (Negative) 08/17/18 08/17/18 08/17/18 Range/Units 06:30 06:30 09:15 WBC (3.8-10.6) k/uL RBC (4.30-5.90) m/uL Hgb (13.0-17.5) gm/dL Hct (39.0-53.0) % MCV (80.0-100.0) fL MCH (25.0-35.0) pg MCHC (31.0-37.0) g/dL RDW (11.5-15.5) % Plt Count (150-450) k/uL Neutrophils % % Lymphocytes % % Monocytes % % Eosinophils % % Basophils % % Neutrophils # (1.3-7.7) k/uL Lymphocytes # (1.0-4.8) k/uL Monocytes # (0-1.0) k/uL Eosinophils # (0-0.7) k/uL Basophils # (0-0.2) k/uL PT 9.9 (9.0-12.0) sec INR 0.9 (<1.2) APTT 18.1 L (22.0-30.0) sec Sodium (137-145) mmol/L Potassium (3.5-5.1) mmol/L Chloride (98-107) mmol/L Carbon Dioxide (22-30) mmol/L Anion Gap mmol/L BUN (9-20) mg/dL Creatinine (0.66-1.25) mg/dL Est GFR (CKD-EPI)AfAm (>60 ml/min/1.73 sqM) Est GFR (CKD-EPI)NonAf (>60 ml/min/1.73 sqM) Glucose (74-99) mg/dL Calcium (8.4-10.2) mg/dL Magnesium (1.6-2.3) mg/dL Total Bilirubin (0.2-1.3) mg/dL AST (17-59) U/L ALT (21-72) U/L Alkaline Phosphatase (38-126) U/L Total Creatine Kinase (55-170) U/L CK-MB (CK-2) (0.0-2.4) ng/mL CK-MB (CK-2) Rel Index Troponin I (0.000-0.034) ng/mL Total Protein (6.3-8.2) g/dL Albumin (3.5-5.0) g/dL Urine Color Light Yellow Urine Appearance Clear (Clear) Urine pH 5.0 (5.0-8.0) Ur Specific [place] 1.018 (1.001-1.035) Urine Protein Negative (Negative) Urine Glucose (UA) Negative (Negative) Urine Ketones Negative (Negative) Urine Blood Negative (Negative) Urine Nitrite Negative (Negative) Urine Bilirubin Negative (Negative) Urine Urobilinogen <2.0 (<2.0) mg/dL Ur Leukocyte Esterase Negative (Negative) Gastric Occult Blood Positive (Negative) Disposition <Luis Enrique Kaye - Last Filed: 08/17/18 06:55> <Luis Enrique Chavez - Last Filed: 08/17/18 11:55> Clinical Impression: Syncope, Upper GI bleed, Anemia Disposition: ADMITTED IP TO THIS HOSP Condition: Stable Referrals: Huang Traore MD [Primary Care Provider] - 1-2 days
--- NOTE | 2018-08-17 07:01 | XR ---
EXAMINATION TYPE: XR chest 2V DATE OF EXAM: 08/17/2018 HISTORY: syncope. REFERENCE: Previous study dated 08/05/2018. FINDINGS: The lungs remain clear. Pleural space are clear. The heart is not enlarged. IMPRESSION: NORMAL CHEST.
--- NOTE | 2018-08-17 07:45 | CT ---
EXAMINATION TYPE: CT brain wo con DATE OF EXAM: 08/17/2018 COMPARISON: Previous study dated 07/23/2018 HISTORY: Syncopal episode. CT DLP: 1020.4 mGycm Automated exposure control for dose reduction was used. FINDINGS: Central structures are midline. There is no evidence of hydrocephalus. No acute focal lesion, mass ef fect or midline shift is seen. I do not see evidence of intracranial blood. Visualized portions of the paranasal sinuses and mastoids are clear. The bony calvarium is intact. IMPRESSION: NO ACUTE INTRACRANIAL ABNORMALITY.
[2018-08-17 08:10] LABS: Basophils % (A) 0 %; Eosinophils % (A) 0 %; HCT 26.7 % (39.0-53.0); HGB 9.4 gm/dL (13.0-17.5); Lymphocytes # (A) 0.2 k/uL (1.0-4.8); Lymphocytes % (A) 2 %; MCH 31.2 pg (25.0-35.0); MCHC 35.1 g/dL (31.0-37.0); MCV 88.9 fL (80.0-100.0); Monocytes # (A) 0.4 k/uL (0-1.0); Monocytes % (A) 4 %; Neutrophils % (A) 94 %; Platelet Count 194 k/uL (150-450); RBC 3.01 m/uL (4.30-5.90); RDW 13.7 % (11.5-15.5); WBC 9.6 k/uL (3.8-10.6)
[2018-08-17 08:20] LABS: Albumin 3.4 g/dL (3.5-5.0); Calcium 8.8 mg/dL (8.4-10.2); Magnesium 1.7 mg/dL (1.6-2.3); Potassium 5.2 mmol/L (3.5-5.1); Total Bilirubin 0.6 mg/dL (0.2-1.3); Total Protein 5.8 g/dL (6.3-8.2)
[2018-08-17 08:26] LABS: INR 0.9 (<1.2); Prothrombin Time 9.9 sec (9.0-12.0)
[2018-08-17 08:35] LABS: Partial Thromboplastin Time 18.1 sec (22.0-30.0)
[2018-08-17 08:51] LABS: Creatine Kinase <20 U/L (55-170)
[2018-08-17 09:03] LABS: Creatine Kinase MB <0.2 ng/mL (0.0-2.4); Troponin I <0.012 ng/mL (0.000-0.034)
[2018-08-17 09:36] LABS: Appearance,Urine Clear (Clear); Bilirubin,Urine Negative (Negative); Blood,Urine Negative (Negative); Color,Urine Light Yellow; Glucose,Urine (UA) Negative (Negative); Ketones,Urine Negative (Negative); Leukocyte Esterase,Urine Negative (Negative); Nitrite,Urine Negative (Negative); Protein,Urine Negative (Negative); Specific Gravity,Urine 1.018 (1.001-1.035); Urobilinogen,Urine <2.0 mg/dL (<2.0)
[2018-08-17] MEDS ORDERED: NALOXONE 0.4 MG/ML 1 ML VIAL IV PRN (11:56)
[2018-08-17] MEDS ORDERED: ALPRAZolam 0.25 MG TAB PO PRN (12:02)
[2018-08-17] MEDS ORDERED: MAGIC MOUTHWASH PO SCH (12:30)
[2018-08-17] MEDS: MAG HYDROX/AL HYDROX/SIMETH 30 ML, diphenhydrAMINE ELIXIR 75 MG, LIDOCAINE VISCOUS 30 ML PO SCH ×6 (15:07→16:50)
[2018-08-17 15:10] LABS: Basophils % (A) 0 %; Eosinophils % (A) 0 %; HCT 22.3 % (39.0-53.0); Lymphocytes # (A) 0.4 k/uL (1.0-4.8); Lymphocytes % (A) 4 %; MCH 30.7 pg (25.0-35.0); MCHC 34.7 g/dL (31.0-37.0); MCV 88.4 fL (80.0-100.0); Mean Platelet Volume 8.5; Monocytes # (A) 0.5 k/uL (0-1.0); Monocytes % (A) 6 %; Neutrophils # (A) 7.6 k/uL (1.3-7.7); Neutrophils % (A) 88 %; Platelet Count 141 k/uL (150-450); RBC 2.53 m/uL (4.30-5.90); RDW 13.8 % (11.5-15.5); WBC 8.6 k/uL (3.8-10.6)
[2018-08-17 15:17] LABS: HGB 7.8 gm/dL (13.0-17.5)
[2018-08-17] MEDS: METOPROLOL TARTRATE 25 MG TAB PO SCH ×2 (16:48→21:51)
[2018-08-17] MEDS: CEVIMELINE 30 MG CAP PO SCH ×2 (16:48→21:52)
[2018-08-17] MEDS: PANTOPRAZOLE 40 MG/10 ML VIAL IV SCH (16:49)
[2018-08-17] MEDS: SODIUM CHLORIDE 0.9% 1,000 ML IV SCH (17:01)
[2018-08-17] MEDS: ONDANSETRON 4 MG/2 ML VIAL IVP PRN (17:02)
--- NOTE | 2018-08-17 17:56 | P.HPIM ---
History of Present Illness This is a pleasant 58 years old male with past medical history of atrial fibrillation, syncope, cancer of the base of the tongue receiving chemotherapy last dose on 08/14/2018 and radiotherapy. Dysphagia. Hypertension. Presents because of syncope, patient states that he passed out about 3 times. At the same time patient was noticed and he was vomiting of blood and which is was mostly brown in color but there was also blood in his PEG tube and blood in his stool. On admission his hemoglobin dropped from 9.4 to 7.8. And his INR was 0.9. Sodium 136. Potassium 5.2. Creatinine 1.3. With baseline from 1.1-1.2 Review of Systems CONSTITUTIONAL: No fever, no malaise, no fatigue. HEENT: No recent visual problems or hearing problems. Denied any sore throat. CARDIOVASCULAR: No orthopnea, PND, no palpitations, no syncope. PULMONARY: No shortness of breath, no cough, no hemoptysis. GASTROINTESTINAL: No diarrhea, no nausea, no vomiting, no abdominal pain. Normoactive bowel sounds. NEUROLOGICAL: No headaches, no weakness, no numbness. HEMATOLOGICAL: Denies any bleeding or petechiae. GENITOURINARY: Denies any burning micturition, frequency, or urgency. MUSCULOSKELETAL/RHEUMATOLOGICAL: Denies any joint pain, swelling, or any muscle pain. ENDOCRINE: Denies any polyuria or polydipsia. 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 History of Any Multi-Drug Resistant Organisms: None Reported Past Surgical History: Tonsillectomy Additional Past Surgical History / Comment(s): Bronchoscopies x2 with base of tongue bx/lesion removal per spouse, nasal fracture with surgery. Additional Past Anesthesia/Blood Transfusion Reaction / Comment(s): Pt was hypertensive once. Past Psychological History: Anxiety Additional Psychological History / Comment(s): Pt resides with his spouse of 22 yrs and her 19 yr old daughter. He is disabled since his cancer diagnosis. He has had anxiety since his cancer diagnosis-takes xanax and it helps. Pt no longer drives, his spouse drives him to [employer]. Pt used to work in [employer]. Smoking Status: Never smoker Past Alcohol Use History: None Reported Past Drug Use History: Marijuana - Past Family History Father Family Medical History: Myocardial Infarction ([place]) Additional Family Medical History / Comment(s): Father of heart problems. Mother Family Medical History: Myocardial Infarction ([place]) Additional Family Medical History / Comment(s): Mother of heart problems. Medications and Allergies Home Medications Medication Instructions Recorded Confirmed Type ALPRAZolam [Xanax] 0.25 mg PO Q8HR PRN 07/21/18 08/17/18 History Cevimeline [Evoxac] 30 mg PO TID 07/21/18 08/17/18 History Magic Mouthwash 15 ml PO AC-TID 07/21/18 08/17/18 History Ondansetron [Zofran ODT] 4 mg PO Q4H PRN 07/21/18 08/17/18 History Apixaban [Eliquis] 5 mg PO BID #60 tab 07/24/18 08/17/18 Rx Metoprolol Tartrate [Lopressor] 25 mg PO TID #90 tab 08/11/18 08/17/18 Rx Psyllium Husk 100% [Metamucil 6 gm PO DAILY packet 08/11/18 08/17/18 Rx Packet] amLODIPine [Norvasc] 5 mg PO DAILY #30 tab 08/11/18 08/17/18 Rx Dexamethasone See Taper PO DIRECTED 08/17/18 08/17/18 History Allergies Allergy/AdvReac Type Severity Reaction Status Date / Time No Known Allergies Allergy Verified 08/17/18 12:21 Physical Exam Vitals: Vital Signs Temp Pulse Pulse Resp BP BP Pulse Ox 08/17/18 15:00 97.3 F L 62 18 175/84 98 08/17/18 14:00 98.4 F 62 14 158/95 97 08/17/18 13:23 97.3 F L 62 18 175/84 98 08/17/18 13:00 83 23 140/90 99 08/17/18 12:00 58 L 15 125/74 97 08/17/18 11:00 64 14 156/101 99 08/17/18 10:00 57 L 18 143/88 97 08/17/18 09:00 58 L 16 144/105 99 08/17/18 08:04 97.4 F L 64 18 142/92 98 08/17/18 08:00 75 17 142/92 99 08/17/18 07:50 62 16 129/94 98 08/17/18 07:40 59 L 10 L 129/94 99 08/17/18 07:30 129/94 08/17/18 07:20 61 24 129/94 99 08/17/18 07:10 61 19 129/94 99 08/17/18 07:07 75 16 129/94 99 08/17/18 07:00 61 12 98 08/17/18 06:57 59 L 100 08/17/18 06:40 79 17 98 08/17/18 06:30 63 12 100 08/17/18 06:29 100 08/17/18 06:12 98.2 F 80 16 124/80 100 Intake and Output 08/17/18 08/17/18 08/17/18 06:59 14:59 22:59 Other: # Voids 2 Weight 74.843 kg 75.189 kg GENERAL: The patient is alert and oriented x3, not in any acute distress. Well developed, well nourished. HEENT: Pupils are round and equally reacting to light. EOMI. No scleral icterus. No conjunctival pallor. Normocephalic, atraumatic. No pharyngeal erythema. No thyromegaly. CARDIOVASCULAR: S1 and S2 present. No murmurs, rubs, or gallops. PULMONARY: Chest is clear to auscultation, no wheezing or crackles. ABDOMEN: Soft, nontender, nondistended, normoactive bowel sounds. No palpable organomegaly. MUSCULOSKELETAL: No joint swelling or deformity. EXTREMITIES: No cyanosis, clubbing, or pedal edema. NEUROLOGICAL: Gross neurological examination did not reveal any focal deficits. SKIN: No rashes. Results CBC & Chem 7: 08/17/18 14:52 08/17/18 06:30 Labs: Abnormal Lab Results - Last 24 Hours (Table) 08/17/18 08/17/18 08/17/18 Range/Units 06:30 06:30 06:30 RBC 3.01 L (4.30-5.90) m/uL Hgb 9.4 L (13.0-17.5) gm/dL Hct 26.7 L (39.0-53.0) % Plt Count (150-450) k/uL Neutrophils # 9.0 H (1.3-7.7) k/uL Lymphocytes # 0.2 L (1.0-4.8) k/uL APTT (22.0-30.0) sec Sodium 136 L (137-145) mmol/L Potassium 5.2 H (3.5-5.1) mmol/L BUN 71 H (9-20) mg/dL Creatinine 1.37 H (0.66-1.25) mg/dL Glucose 185 H (74-99) mg/dL Total Creatine Kinase <20 L (55-170) U/L Total Protein 5.8 L (6.3-8.2) g/dL Albumin 3.4 L (3.5-5.0) g/dL 08/17/18 08/17/18 Range/Units 06:30 14:52 RBC 2.53 L (4.30-5.90) m/uL Hgb 7.8 L D (13.0-17.5) gm/dL Hct 22.3 L (39.0-53.0) % Plt Count 141 L (150-450) k/uL Neutrophils # (1.3-7.7) k/uL Lymphocytes # 0.4 L (1.0-4.8) k/uL APTT 18.1 L (22.0-30.0) sec Sodium (137-145) mmol/L Potassium (3.5-5.1) mmol/L BUN (9-20) mg/dL Creatinine (0.66-1.25) mg/dL Glucose (74-99) mg/dL Total Creatine Kinase (55-170) U/L Total Protein (6.3-8.2) g/dL Albumin (3.5-5.0) g/dL Thrombosis Risk Factor Assmnt - Choose All That Apply Each Factor Represents 1 point: Age 41-60 years Other Risk Factors: Yes Each Risk Factor Represents 2 Points: Malignancy Other congenital or acquired thrombophilia - If yes, enter type in comment: No Thrombosis Risk Factor Assessment Total Risk Factor Score: 3 Thrombosis Risk Factor Assessment Level: Moderate Risk Assessment and Plan Assessment: Recurrent syncope acute GI bleed Acute blood loss anemia History of atrial fibrillation History of cancer on the base of the tongue, status post chemo radiotherapy Dysphagia Essential hypertension. . Plan: This is a pleasant 58 years old male who presents because of syncope. Continue with IV fluids and call cardiology and GI consult. Telemetry Labs and medication were reviewed. Hold Eliquis. Continue same treatment. Continue with symptomatic treatment. Resume home medication. Monitor lytes and vitals. DVT and GI prophylaxis. Further recommendations of the clinical course of the patient DVT prophylaxis: Eliquis on hold in view of his GI bleed. No other anticoagulation for the same reason. GI Prophylaxis: Protonix Prognosis is guarded
[2018-08-17 18:44] LABS: HCT 21.6 % (39.0-53.0); HGB 7.8 gm/dL (13.0-17.5); MCH 31.8 pg (25.0-35.0); MCHC 36.2 g/dL (31.0-37.0); MCV 87.9 fL (80.0-100.0); Platelet Count 130 k/uL (150-450); RBC 2.45 m/uL (4.30-5.90); RDW 13.6 % (11.5-15.5); WBC 8.6 k/uL (3.8-10.6)
[2018-08-17] MEDS ORDERED: FAMOTIDINE 20 MG/2 ML VIAL IV SCH (21:00)
[2018-08-18] MEDS: CEVIMELINE 30 MG CAP PO SCH ×3 (07:31→21:04)
[2018-08-18] MEDS: METOPROLOL TARTRATE 25 MG TAB PO SCH ×3 (07:32→21:04)
[2018-08-18] MEDS: PANTOPRAZOLE 40 MG/10 ML VIAL IV SCH ×2 (07:33→21:04)
[2018-08-18] MEDS: amLODIPine 5 MG TAB PO SCH (07:37)
[2018-08-18] MEDS: PSYLLIUM HUSK 100% 6 GM PACKET PO SCH ×2 (07:38→07:49)
[2018-08-18] MEDS: MAG HYDROX/AL HYDROX/SIMETH 30 ML, diphenhydrAMINE ELIXIR 75 MG, LIDOCAINE VISCOUS 30 ML PO SCH ×9 (07:41→17:29)
[2018-08-18 08:21] LABS: Basophils % (A) 0 %; Eosinophils % (A) 1 %; HCT 21.4 % (39.0-53.0); HGB 7.8 gm/dL (13.0-17.5); Lymphocytes # (A) 0.2 k/uL (1.0-4.8); Lymphocytes % (A) 5 %; MCH 32.2 pg (25.0-35.0); MCHC 36.5 g/dL (31.0-37.0); Mean Platelet Volume 9.7; Monocytes # (A) 0.3 k/uL (0-1.0); Monocytes % (A) 7 %; Neutrophils # (A) 3.9 k/uL (1.3-7.7); Neutrophils % (A) 87 %; Platelet Count 143 k/uL (150-450); RBC 2.44 m/uL (4.30-5.90); RDW 13.8 % (11.5-15.5); WBC 4.5 k/uL (3.8-10.6)
[2018-08-18 08:41] LABS: Calcium 8.5 mg/dL (8.4-10.2); Potassium 4.1 mmol/L (3.5-5.1)
--- NOTE | 2018-08-18 09:50 | P.CONS ---
History of Present Illness - Reason for Consult Consult date: 08/18/18 head/neck cancer Requesting physician: Colby E Sheet - Chief Complaint syncopy - History of Present Illness Pt came to the hospital after he passed out when getting up in the middle of the night to go to the bathroom, he woke up with "brown stuff" coming from his mouth. He denied fever, mild nausea, no vomiting, he was having "fullness" with his PEG tube feedings the last few days, denied constipation or diarrhea, no pain to report. Please see Medical consult dated 08/06/18 as the only change in the pt history is that he completed cycle 3 of cisplatin on 08/14, no dose changes, 1 more day of radiation. Review of Systems 14 point ROS is negative except as stated in HPI Past Medical History Past Medical History: Atrial Fibrillation, Cancer, Syncope Additional Past Medical History / Comment(s): Cancer base of tongue receiving chemo (last dose 08/14/18) and radiation, dysphagia, recently has been hypertensive. History of Any Multi-Drug Resistant Organisms: None Reported Past Surgical History: Tonsillectomy Additional Past Surgical History / Comment(s): Bronchoscopies x2 with base of tongue bx/lesion removal per spouse, nasal fracture with surgery. PEG tube placement 07/2018 Additional Past Anesthesia/Blood Transfusion Reaction / Comm: Pt was hypertensive once. Past Psychological History: Anxiety Additional Psychological History / Comment(s): Pt resides with his spouse of 22 yrs and her 19 yr old daughter. He is disabled since his cancer diagnosis. He has had anxiety since his cancer diagnosis-takes xanax and it helps. Pt no longer drives, his spouse drives him to [employer]. Pt used to work in [employer]. Smoking Status: Never smoker Past Alcohol Use History: None Reported Past Drug Use History: Marijuana - Past Family History Father Family Medical History: Myocardial Infarction ([place]) Additional Family Medical History / Comment(s): Father of heart problems. Mother Family Medical History: Myocardial Infarction ([place]) Additional Family Medical History / Comment(s): Mother of heart problems. Medications and Allergies Home Medications Medication Instructions Recorded Confirmed Type ALPRAZolam [Xanax] 0.25 mg PO Q8HR PRN 07/21/18 08/17/18 History Cevimeline [Evoxac] 30 mg PO TID 07/21/18 08/17/18 History Magic Mouthwash 15 ml PO AC-TID 07/21/18 08/17/18 History Ondansetron [Zofran ODT] 4 mg PO Q4H PRN 07/21/18 08/17/18 History Apixaban [Eliquis] 5 mg PO BID #60 tab 07/24/18 08/17/18 Rx Metoprolol Tartrate [Lopressor] 25 mg PO TID #90 tab 08/11/18 08/17/18 Rx Psyllium Husk 100% [Metamucil 6 gm PO DAILY packet 08/11/18 08/17/18 Rx Packet] amLODIPine [Norvasc] 5 mg PO DAILY #30 tab 08/11/18 08/17/18 Rx Dexamethasone See Taper PO DIRECTED 08/17/18 08/17/18 History Allergies Allergy/AdvReac Type Severity Reaction Status Date / Time No Known Allergies Allergy Verified 08/17/18 12:21 Physical Exam Vitals: Vital Signs Temp Pulse Pulse Resp BP BP Pulse Ox 08/18/18 05:00 97.7 F 54 L 16 112/64 98 08/17/18 21:00 97.9 F 60 16 124/71 97 08/17/18 15:00 97.3 F L 62 18 175/84 98 08/17/18 14:00 98.4 F 62 14 158/95 97 08/17/18 13:23 97.3 F L 62 18 175/84 98 08/17/18 13:00 83 23 140/90 99 08/17/18 12:00 58 L 15 125/74 97 08/17/18 11:00 64 14 156/101 99 08/17/18 10:00 57 L 18 143/88 97 Intake and Output 08/17/18 08/18/18 08/18/18 22:59 06:59 14:59 Intake Total 240 640 Balance 240 640 Intake: Intake, IV Titration 240 640 Amount Sodium Chloride 0.9% 1, 240 640 000 ml @ 80 mls/hr IV . [id number] [facility] Rx#:[id number] Other: # Voids 2 - Constitutional General appearance: average body habitus, cooperative, no acute distress - EENT dry mucus membranes Eyes: anicteric sclerae, EOMI, normal appearance ENT: hearing grossly normal - Neck left anterior cervical/supraclavicular area 4cm mass, radiation skin changes, no blisters or open areas Neck: lymphadenopathy - Respiratory Respiratory: bilateral: CTA - Cardiovascular Heart sounds: normal: S1, S2 leg Peripheral Edema: bilateral: None - Gastrointestinal PEG tube insertion, dressing CDI General gastrointestinal: no absent bowel sounds, no decreased bowel sounds, no distended, no hepatomegaly, no hyperactive bowel sounds, normal bowel sounds, no organomegaly, no rigid, no scaphoid, soft, no splenomegaly, no tenderness, no umbilical hernia, no ventral hernia - Integumentary Integumentary: pale - Neurologic Neurologic: CNII-XII intact - Musculoskeletal Musculoskeletal: generalized weakness, strength equal bilaterally - Psychiatric Psychiatric: A&O x's 3, appropriate affect, intact judgment & insight Results CBC & Chem 7: 08/18/18 08:06 08/18/18 08:06 Labs: Abnormal Lab Results - Last 24 Hours (Table) 08/17/18 08/17/18 08/18/18 Range/Units 14:52 18:33 08:06 RBC 2.53 L 2.45 L 2.44 L (4.30-5.90) m/uL Hgb 7.8 L D 7.8 L 7.8 L (13.0-17.5) gm/dL Hct 22.3 L 21.6 L 21.4 L (39.0-53.0) % Plt Count 141 L 130 L 143 L (150-450) k/uL Lymphocytes # 0.4 L 0.2 L (1.0-4.8) k/uL BUN (9-20) mg/dL Glucose (74-99) mg/dL 08/18/18 Range/Units 08:06 RBC (4.30-5.90) m/uL Hgb (13.0-17.5) gm/dL Hct (39.0-53.0) % Plt Count (150-450) k/uL Lymphocytes # (1.0-4.8) k/uL BUN 57 H (9-20) mg/dL Glucose 104 H (74-99) mg/dL Chest x-ray: report reviewed CT Scan - head: report reviewed Assessment and Plan (1) Syncope Narrative/Plan: Unclear exact cause-combination vaso/vagal as pt was changing position- dehydration after chemo, anemia. Pt is being monitored. CT head initially was negative for bleeding-pt on anticoagulation. Additional CT without contrast ordered to complete monitoring work up Current Visit: Yes Status: Acute Priority: High Code(s): R55 - SYNCOPE AND COLLAPSE SNOMED Code(s): 156630876 (2) Upper GI bleed Narrative/Plan: GI consulted, await their evaluation and plan Current Visit: Yes Status: Acute Priority: High Code(s): K92.2 - GASTROINTESTINAL HEMORRHAGE, UNSPECIFIED SNOMED Code(s): 64810537 (3) Anemia Narrative/Plan: Chemo related as well as suspect acute GI bleeding from pt reported symptoms. Iron studies ordered. GI consulted. No transfusion at this time. CBC in AM Current Visit: Yes Status: Acute Priority: High Code(s): D64.9 - ANEMIA, UNSPECIFIED SNOMED Code(s): 870892350 (4) Atrial fibrillation Narrative/Plan: No ASA, NSAIDs or anticoagulation until bleeding ruled out. SCDs for DVT prophylaxis Current Visit: Yes Status: Acute Priority: High Code(s): I48.91 - UNSPECIFIED ATRIAL FIBRILLATION SNOMED Code(s): 56058976 (5) Head and neck cancer Narrative/Plan: Pt has completed chemo, 1 more radiation due. Did discuss case with Dr. Lay. He will evaluate pt and see if he is able to receive his last radiation dose today. Current Visit: Yes Status: Acute Priority: High Code(s): C76.0 - MALIGNANT NEOPLASM OF HEAD, FACE AND NECK SNOMED Code(s): 767754804 (6) Dehydration Narrative/Plan: Secondary to poor oral intake. Renal function poor. Pt is being hydrated, encouraged oral/PEG intake Current Visit: Yes Status: Acute Priority: High Code(s): E86.0 - DEHYDRATION SNOMED Code(s): 46470062 Plan: attests: I have performed H&P and developed impression and plan of patient with dictator. I agree with dictated note, documented as a scribe.
[2018-08-18] MEDS: SODIUM CHLORIDE 0.9% 1,000 ML IV SCH ×3 (10:03→23:50)
--- NOTE | 2018-08-18 12:21 | P.CRDCN ---
History of Present Illness Consult date: 08/18/18 Requesting physician: Colby E Sheet Reason for Consult (text): Syncope, GI bleed, history of paroxysmal atrial fibrillation Chief complaint: Syncope and GI bleed History of present illness: A pleasant 58-year-old gentleman with history of hypertension, paroxysmal atrial fibrillation, oral cancer, recently completed final chemotherapy and will be having final radiation treatment today. He has been on Eliquis at home. He presented this admission with complaints of syncope after using the restroom and when he woke he noted blood on the floor that he believes is coming from his mouth. He is also noticed some dark stools. Hemoglobin on admission was 9.4, this morning 7.8. Gastric secretions were positive for occult blood. His Eliquis has been placed on hold. He is maintaining sinus rhythm. Laboratory values on admission showed a sodium of 136, potassium 5.2, B1 of 71 and creatinine of 1.37. This morning labs showed sodium 137, potassium 4.1, BUNs of 57 and creatinine of 1.21. Patient has not been consuming much food or liquids orally, had a PEG tube placed about a week ago. Vital signs have been stable, he is afebrile. He's had no further syncopal episodes. Denies complaints of chest discomfort, palpitations, shortness of breath or edema. 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 History of Any Multi-Drug Resistant Organisms: None Reported Past Surgical History: Tonsillectomy Additional Past Surgical History / Comment(s): Bronchoscopies x2 with base of tongue bx/lesion removal per spouse, nasal fracture with surgery. PEG tube placement 07/2018 Additional Past Anesthesia/Blood Transfusion Reaction / Comment(s): Pt was hypertensive once. Past Psychological History: Anxiety Additional Psychological History / Comment(s): Pt resides with his spouse of 22 yrs and her 19 yr old daughter. He is disabled since his cancer diagnosis. He has had anxiety since his cancer diagnosis-takes xanax and it helps. Pt no longer drives, his spouse drives him to [employer]. Pt used to work in [employer]. Smoking Status: Never smoker Past Alcohol Use History: None Reported Past Drug Use History: Marijuana - Past Family History Father Family Medical History: Myocardial Infarction ([place]) Additional Family Medical History / Comment(s): Father of heart problems. Mother Family Medical History: Myocardial Infarction [place] Additional Family Medical History / Comment(s): Mother of heart problems. Medications and Allergies Home Medications Medication Instructions Recorded Confirmed Type ALPRAZolam [Xanax] 0.25 mg PO Q8HR PRN 07/21/18 08/17/18 History Cevimeline [Evoxac] 30 mg PO TID 07/21/18 08/17/18 History Magic Mouthwash 15 ml PO AC-TID 07/21/18 08/17/18 History Ondansetron [Zofran ODT] 4 mg PO Q4H PRN 07/21/18 08/17/18 History Apixaban [Eliquis] 5 mg PO BID #60 tab 07/24/18 08/17/18 Rx Metoprolol Tartrate [Lopressor] 25 mg PO TID #90 tab 08/11/18 08/17/18 Rx Psyllium Husk 100% [Metamucil 6 gm PO DAILY packet 08/11/18 08/17/18 Rx Packet] amLODIPine [Norvasc] 5 mg PO DAILY #30 tab 08/11/18 08/17/18 Rx Dexamethasone See Taper PO DIRECTED 08/17/18 08/17/18 History Allergies Allergy/AdvReac Type Severity Reaction Status Date / Time No Known Allergies Allergy Verified 08/17/18 12:21 Physical Exam Vitals: Vital Signs Temp Pulse Pulse Resp BP BP Pulse Ox 08/18/18 11:59 98 F 59 L 16 151/83 98 08/18/18 08:00 54 L 16 08/18/18 05:00 97.7 F 54 L 16 112/64 98 08/17/18 21:00 97.9 F 60 16 124/71 97 08/17/18 15:00 97.3 F L 62 18 175/84 98 08/17/18 14:00 98.4 F 62 14 158/95 97 08/17/18 13:23 97.3 F L 62 18 175/84 98 08/17/18 13:00 83 23 140/90 99 Intake and Output 12/09/18 12/10/18 12/10/18 22:59 06:59 14:59 Intake Total 240 640 Balance 240 640 Intake: Intake, IV Titration 240 640 Amount Sodium Chloride 0.9% 1, 240 640 000 ml @ 80 mls/hr IV . [id number] [facility] Rx#:[id number] Other: # Voids 2 Weight 75.189 kg PHYSICAL EXAMINATION: HEENT: Head is atraumatic, normocephalic. Pupils equal, round. Mass noted to right side of neck. There is no elevated jugular venous pressure. HEART EXAMINATION: Heart sounds regular, S1 and S2 normal. No murmur or gallop heard. CHEST EXAMINATION: Lungs are clear to auscultation and precussion. No chest wall tenderness is noted on palpation or with deep breathing. ABDOMEN: Soft, nontender. Bowel sounds are heard. No organomegaly noted. PEG tube noted EXTREMITIES: 2+ peripheral pulses with no evidence of peripheral edema and no calf tenderness noted. NEUROLOGIC patient is awake, alert and oriented x3. . Results 08/18/18 08:06 08/18/18 08:06 CBC 08/17/18 08/17/18 08/18/18 Range/Units 14:52 18:33 08:06 WBC 8.6 8.6 4.5 (3.8-10.6) k/uL RBC 2.53 L 2.45 L 2.44 L (4.30-5.90) m/uL Hgb 7.8 L D 7.8 L 7.8 L (13.0-17.5) gm/dL Hct 22.3 L 21.6 L 21.4 L (39.0-53.0) % Plt Count 141 L 130 L 143 L (150-450) k/uL Comprehensive Metabolic Panel 08/18/18 Range/Units 08:06 Sodium 137 (137-145) mmol/L Potassium 4.1 (3.5-5.1) mmol/L Chloride 102 (98-107) mmol/L Carbon Dioxide 27 (22-30) mmol/L BUN 57 H (9-20) mg/dL Creatinine 1.21 (0.66-1.25) mg/dL Glucose 104 H (74-99) mg/dL Calcium 8.5 (8.4-10.2) mg/dL Current Medications Generic Name Dose Route Start Last Admin Trade Name Freq PRN Reason Stop Dose Admin Alprazolam 0.25 mg 12/09/18 12:02 Xanax PO Q8HR PRN Anxiety Amlodipine Besylate 5 mg 08/18/18 09:00 08/18/18 07:37 Norvasc PO 5 mg DAILY PLOLO Administration Cevimeline HCl 30 mg 08/17/18 16:00 08/18/18 07:31 Evoxac PO 30 mg TID POLLO Administration Al Hydroxide/Mg Hydroxide 30 0 ml 08/17/18 13:00 08/18/18 07:41 ml/ Diphenhydramine HCl 75 mg/ PO Not Given Lidocaine HCl 30 ml AC-TID POLLO Sodium Chloride 1,000 mls @ 80 mls/hr 08/17/18 12:00 08/18/18 10:03 Saline 0.9% IV 80 mls/hr .[id number] POLLO Administration Metoprolol Tartrate 25 mg 08/17/18 16:00 08/18/18 07:32 Lopressor PO 25 mg TID POLLO Administration Naloxone HCl 0.2 mg 08/17/18 11:56 Narcan IV Q2M PRN Opioid Reversal Ondansetron HCl 4 mg 08/17/18 11:56 08/17/18 17:02 Zofran IVP 4 mg Q8HR PRN Administration Nausea And Vomiting Pantoprazole Sodium 40 mg 08/17/18 21:00 08/18/18 07:33 Protonix IV 40 mg BID POLLO Administration Psyllium Hydrophilic Mucilloid 6 gm 08/18/18 09:00 08/18/18 07:49 Metamucil PO Not Given DAILY POLLO Intake and Output 08/17/18 08/18/18 08/18/18 22:59 06:59 14:59 Intake Total 240 640 Balance 240 640 Intake: Intake, IV Titration 240 640 Amount Sodium Chloride 0.9% 1, 240 640 000 ml @ 80 mls/hr IV . [id number] [facility] Rx#:[id number] Other: # Voids 2 Weight 75.189 kg Patient Weight 08/19/18 06:59 Weight 75.189 kg 08/18/18 08:06 08/18/18 08:06 Assessment and Plan Assessment: #1 acute GI bleed #2 anemia, secondary to above #3 syncope, likely secondary to GI bleed, acute blood loss anemia and hypotension #4 paroxysmal atrial fibrillation #5 oral cancer, status post chemotherapy and radiation 6 hypertension Plan: From cardiology perspective, syncope likely related to GI bleed, anemia and hypotension. Continue to hold anticoagulation at this time until patient is stable. Further recommendations to follow depending on patient's clinical course. MICROSYSTEMS ENGINEER note has been reviewed, I agree with a documented findings and plan of care. Patient was seen and examined.
[2018-08-18 17:21] LABS: Iron Saturation 98.2 (15.00-50.00)
--- NOTE | 2018-08-18 19:24 | P.CONS ---
History of Present Illness - Reason for Consult Consult date: 08/18/18 GI Bleed Requesting physician: Celeste Agarwal - Chief Complaint Syncope - History of Present Illness The patient is a very pleasant 58-year-old male with a known history of atrial fibrillation Eliquis, tongue cancer receiving chemotherapy and radiation therapy , and dysphagia status post PEG tube placement who presented to the emergency department after having an episode of passing out. Per the patient he had 3 episodes of passing out prior to presentation. He notes that he had multiple episodes of vomiting with production of coffee ground emesis. He also noted multiple episodes of dark stool which coincided with the brown coffee-ground emesis. He denies any peggy blood in his vomit or with his bowel movements. He has no prior history of peptic ulcer disease. He did have a EGD in the past few weeks with PEG tube placement due to symptoms of dysphagia secondary to treatment of his tongue cancer. He denies any pain in the abdomen. He denies any malfunction with the PEG tube. Currently he is been seen by cardiology and anticoagulation is being held. On presentation he was found to have a hemoglobin of 10.1 which subsequently fell to 7.8. He had aspiration of gastric contents which were positive for blood. Review of Systems REVIEW OF SYSTEMS: CARDIO: Denies any chest pain or palpitations, he does have a known history of atrial fibrillation. PULMONARY: Denies any shortness of breath or wheezing. GENITOURINARY: No dysuria or hematuria. MUSCULOSKELETAL: No weakness reported. SKIN: Denies any new rashes or lesions, jaundice or pallor. PSYCHIATRIC: Denies any depression or anxiety. NEUROLOGY: Denies headache, denies any new focal deficits. Does report 3 syncopal episodes prior to presentation. EARS: No tinnitus, discharge or new hearing loss. NOSE: No discharge or congestion. EYES: No pain in eyes or change in vision. CONSTITUTIONAL: No recent weight loss. No fever, chills, night sweats. 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 History of Any Multi-Drug Resistant Organisms: None Reported Past Surgical History: Tonsillectomy Additional Past Surgical History / Comment(s): Bronchoscopies x2 with base of tongue bx/lesion removal per spouse, nasal fracture with surgery. PEG tube placement 07/2018 Additional Past Anesthesia/Blood Transfusion Reaction / Comm: Pt was hypertensive once. Past Psychological History: Anxiety Additional Psychological History / Comment(s): Pt resides with his spouse of 22 yrs and her 19 yr old daughter. He is disabled since his cancer diagnosis. He has had anxiety since his cancer diagnosis-takes xanax and it helps. Pt no longer drives, his spouse drives him to [employer]. Pt used to work in [employer]. Smoking Status: Never smoker Past Alcohol Use History: None Reported Past Drug Use History: Marijuana - Past Family History Father Family Medical History: Myocardial Infarction ([place]) Additional Family Medical History / Comment(s): Father of heart problems. Mother Family Medical History: Myocardial Infarction ([place]) Additional Family Medical History / Comment(s): Mother of heart problems. Medications and Allergies Home Medications Medication Instructions Recorded Confirmed Type ALPRAZolam [Xanax] 0.25 mg PO Q8HR PRN 07/21/18 08/17/18 History Cevimeline [Evoxac] 30 mg PO TID 07/21/18 08/17/18 History Magic Mouthwash 15 ml PO AC-TID 07/21/18 08/17/18 History Ondansetron [Zofran ODT] 4 mg PO Q4H PRN 07/21/18 08/17/18 History Apixaban [Eliquis] 5 mg PO BID #60 tab 07/24/18 08/17/18 Rx Metoprolol Tartrate [Lopressor] 25 mg PO TID #90 tab 08/11/18 08/17/18 Rx Psyllium Husk 100% [Metamucil 6 gm PO DAILY packet 08/11/18 08/17/18 Rx Packet] amLODIPine [Norvasc] 5 mg PO DAILY #30 tab 08/11/18 08/17/18 Rx Dexamethasone See Taper PO DIRECTED 08/17/18 08/17/18 History Allergies Allergy/AdvReac Type Severity Reaction Status Date / Time No Known Allergies Allergy Verified 08/17/18 12:21 Physical Exam Vitals: Vital Signs Temp Pulse Resp BP Pulse Ox 08/18/18 15:20 59 L 16 08/18/18 11:59 98 F 59 L 16 151/83 98 12/10/18 08:00 54 L 16 08/18/18 05:00 97.7 F 54 L 16 112/64 98 08/17/18 21:00 97.9 F 60 16 124/71 97 Intake and Output 08/18/18 08/18/18 08/18/18 06:59 14:59 22:59 Intake Total 640 640 Balance 640 640 Intake: Intake, IV Titration 640 640 Amount Sodium Chloride 0.9% 1, 640 640 000 ml @ 80 mls/hr IV . [id number] [facility] Rx#:[id number] Other: Weight 75.189 kg 75.189 kg On physical examination, patient appears comfortable in no apparent distress. HEAD: Normocephalic, atraumatic. EYES: No scleral icterus. No conjunctival injection. MOUTH: Tongue midline. NECK: Trachea midline, left sided lymphadenopathy in changes on the skin secondary to radiation. CHEST: Clear to auscultation with no wheezing or rhonchi appreciated. HEART: Irregularly irregular. ABDOMEN: Soft, PEG tube in place with no erythema or signs of infection noted. Bowel sounds are positive. No organomegaly. No guarding or rigidity. EXTREMITIES: No pedal edema. SKIN: No rashes, no jaundice. NEUROLOGIC: Alert and oriented x3. No focal deficits. Results CBC & Chem 7: 08/18/18 08:06 08/18/18 08:06 Labs: Abnormal Lab Results - Last 24 Hours (Table) 08/18/18 08/18/18 08/18/18 Range/Units 08:06 08:06 08:06 RBC 2.44 L (4.30-5.90) m/uL Hgb 7.8 L (13.0-17.5) gm/dL Hct 21.4 L (39.0-53.0) % Plt Count 143 L (150-450) k/uL Lymphocytes # 0.2 L (1.0-4.8) k/uL BUN 57 H (9-20) mg/dL Glucose 104 H (74-99) mg/dL Iron 218 H (65-175) ug/dL TIBC 222 L (228-460) ug/dL Iron Saturation 98.20 H (15.00-50.00) Ferritin 1598.3 H (22.0-322.0) ng/mL Vitamin B12 1444.0 H (200.0-944.0) pg/mL Assessment and Plan (1) Anemia, blood loss Narrative/Plan: Patient presenting with anemia of acute blood loss believed to be secondary to upper GI bleed with symptoms of coffee-ground emesis and dark stool. Current Visit: Yes Status: Acute Code(s): D50.0 - IRON DEFICIENCY ANEMIA SECONDARY TO BLOOD LOSS (CHRONIC) SNOMED Code(s): 880435141 (2) Upper GI bleed Narrative/Plan: As above. Current Visit: Yes Status: Acute Priority: High Code(s): K92.2 - GASTROINTESTINAL HEMORRHAGE, UNSPECIFIED SNOMED Code(s): 02507831 (3) Head and neck cancer Current Visit: Yes Status: Acute Priority: High Code(s): C76.0 - MALIGNANT NEOPLASM OF HEAD, FACE AND NECK SNOMED Code(s): 482215351 (4) Dysphagia Narrative/Plan: The patient is status post PEG tube placement. Current Visit: No Status: Acute Priority: High Code(s): R13.10 - DYSPHAGIA , UNSPECIFIED SNOMED Code(s): 85156021 (5) Nausea and vomiting Current Visit: No Status: Acute Priority: High Code(s): R11.2 - NAUSEA WITH VOMITING, UNSPECIFIED SNOMED Code(s): 96293513 Plan: Supportive care Okay for diet as tolerated and tube feeds, nothing by mouth after midnight for procedure in the morning Jesika on EGD tomorrow Monitor hemoglobin and transfuse as needed Continue twice daily Protonix IV Thank you for allowing us to participate in the care of this patient, we will continue to follow
--- NOTE | 2018-08-18 21:54 | P.PN ---
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 Dysphagia. Hypertension. Presents because of syncope, patient states that he passed out about 3 times. At the same time patient was noticed and he was vomiting of blood and which is was mostly brown in color but there was also blood in his PEG tube and blood in his stool. On admission his hemoglobin dropped from 9.4 to 7.8. And his INR was 0.9. Sodium 136. Potassium 5.2. Creatinine 1.3. With baseline from 1.1-1.2 pt is lying in bed not in distress ,no chest pain , no dyspea, his Hb is stable at 7.8 , virtals are stable as well, pt is going for GI endoscopy tomorrow. he went to his radiotherapy today . at bed and all their questions were answered to their satisfaction . Objective - Vital Signs Vital signs: Vital Signs Temp 97.9 F 08/18/18 21:14 Pulse 56 L 08/18/18 21:14 Resp 16 08/18/18 21:14 BP 150/90 08/18/18 21:14 Pulse Ox 99 08/18/18 21:14 Intake & Output 08/18/18 08/18/18 08/19/18 06:59 18:59 06:59 Intake Total 880 640 Balance 880 640 Weight 75.189 kg Intake: Intake, IV Titration 880 640 Amount Sodium Chloride 0.9% 1, 880 640 000 ml @ 80 mls/hr IV . [id number] [facility] Rx#:[id number] - Exam GENERAL: The patient is alert and oriented x3, not in any acute distress. Well developed, well nourished. HEENT: Pupils are round and equally reacting to light. EOMI. No scleral icterus. No conjunctival pallor. Normocephalic, atraumatic. No pharyngeal erythema. No thyromegaly. CARDIOVASCULAR: S1 and S2 present. No murmurs, rubs, or gallops. PULMONARY: Chest is clear to auscultation, no wheezing or crackles. ABDOMEN: Soft, nontender, nondistended, normoactive bowel sounds. No palpable organomegaly. MUSCULOSKELETAL: No joint swelling or deformity. EXTREMITIES: No cyanosis, clubbing, or pedal edema. NEUROLOGICAL: Gross neurological examination did not reveal any focal deficits. SKIN: No rashes. - Labs CBC & Chem 7: 08/18/18 08:06 08/18/18 08:06 Labs: Abnormal Lab Results - Last 24 Hours (Table) 08/18/18 08/18/18 08/18/18 Range/Units 08:06 08:06 08:06 RBC 2.44 L (4.30-5.90) m/uL Hgb 7.8 L (13.0-17.5) gm/dL Hct 21.4 L (39.0-53.0) % Plt Count 143 L (150-450) k/uL Lymphocytes # 0.2 L (1.0-4.8) k/uL BUN 57 H (9-20) mg/dL Glucose 104 H (74-99) mg/dL Iron 218 H (65-175) ug/dL TIBC 222 L (228-460) ug/dL Iron Saturation 98.20 H (15.00-50.00) Ferritin 1598.3 H (22.0-322.0) ng/mL Vitamin B12 1444.0 H (200.0-944.0) pg/mL Assessment and Plan Assessment: Recurrent syncope acute GI bleed Acute blood loss anemia History of atrial fibrillation History of cancer on the base of the tongue, status post chemo radiotherapy Dysphagia Essential hypertension. . Plan: This is a pleasant 58 years old male who presents because of syncope. Continue with IV fluids and call cardiology and GI consult. Telemetry Labs and medication were reviewed. Hold Eliquis. Continue same treatment. Continue with symptomatic treatment. Resume home medication. Monitor lytes and vitals. DVT and GI prophylaxis. Further recommendations of the clinical course of the patient DVT prophylaxis: Eliquis on hold in view of his GI bleed. No other anticoagulation for the same reason. GI Prophylaxis: Protonix Prognosis is guarded
[2018-08-18] MEDS ORDERED: LIDOCAINE 1% 20 ML VIAL (10MG/ML) FOR IV START INTRADERMA PRN (22:38)
[2018-08-18] MEDS: LACTATED RINGERS 1,000 ML IV SCH (23:50)
[2018-08-19] MEDS: MAG HYDROX/AL HYDROX/SIMETH 30 ML, diphenhydrAMINE ELIXIR 75 MG, LIDOCAINE VISCOUS 30 ML PO SCH ×9 (06:57→18:36)
[2018-08-19] MEDS: PSYLLIUM HUSK 100% 6 GM PACKET PO SCH (06:57)
[2018-08-19 07:52] LABS: Calcium 8.1 mg/dL (8.4-10.2); Potassium 4.3 mmol/L (3.5-5.1)
[2018-08-19 07:55] LABS: Basophils % (A) 0 %; Eosinophils % (A) 1 %; Lymphocytes # (A) 0.2 k/uL (1.0-4.8); Lymphocytes % (A) 6 %; MCH 30.9 pg (25.0-35.0); MCHC 35.8 g/dL (31.0-37.0); MCV 86.3 fL (80.0-100.0); Mean Platelet Volume 7.4; Monocytes # (A) 0.2 k/uL (0-1.0); Monocytes % (A) 7 %; Neutrophils # (A) 2.7 k/uL (1.3-7.7); Neutrophils % (A) 86 %; Platelet Count 133 k/uL (150-450); RBC 2.17 m/uL (4.30-5.90); RDW 13.4 % (11.5-15.5); WBC 3.1 k/uL (3.8-10.6)
[2018-08-19 08:02] LABS: HGB 6.7 gm/dL (13.0-17.5)
[2018-08-19 08:04] LABS: HCT 18.7 % (39.0-53.0)
[2018-08-19] MEDS ORDERED: PROPOFOL 10 MG/ML 20 ML VIAL IV ONE (08:13)
[2018-08-19] MEDS ORDERED: LIDOCAINE 1% INJ 10MG/ML (20 ML MDV) ONE (08:13)
[2018-08-19] MEDS ORDERED: IV FLUID CONTINUATION 1,000 ML IV ONE (08:13)
[2018-08-19] MEDS ORDERED: fentaNYL (PF) 50 MCG/ML 2 ML AMP ONE (08:13)
--- NOTE | 2018-08-19 08:49 | P.PCN ---
Date of Procedure: 08/19/18 Description of Procedure: BRIEF HISTORY: The patient is a very pleasant 58-year-old male with a known history of atrial fibrillation Eliquis, tongue cancer receiving chemotherapy and radiation therapy, and dysphagia status post PEG tube placement who presented to the emergency department after having an episode of passing out. He notes that he had multiple episodes of vomiting with production of coffee ground emesis. He also noted multiple episodes of dark stool which coincided with the brown coffee-ground emesis. He denies any peggy blood in his vomit or with his bowel movements. On presentation he was found to have a hemoglobin of 10.1 which subsequently fell to 7.8. He had aspiration of gastric contents which were positive for blood. PROCEDURE PERFORMED: Esophagogastroduodenoscopy with biopsy. PREOPERATIVE DIAGNOSIS: Anemia of acute blood loss, coffee-ground emesis. ESTIMATED BLOOD LOSS: Minimal. IV sedation per anesthesia. PROCEDURE: After informed consent was obtained, the patient was brought into the endoscopy unit. IV sedation was administered by Anesthesia under continuous monitoring. Initially the Olympus GIF-190 video endoscope was inserted into the mouth. Esophagus intubated without any difficulty. It was gradually advanced into the stomach and duodenum and carefully examined. The bulb and the second part of the duodenum appeared grossly normal with some mild scattered erythema in the duodenal bulb suggestive of duodenitis. The scope at this time was withdrawn to the stomach, adequately insufflated with air, and upon careful examination, mucosa of the antrum, body, cardia and the fundus appeared normal with bumper previously placed PEG tube noted an intact. The scope was then withdrawn into the esophagus. The GE junction appeared normal. A small hiatal hernia was noted on retroflexion. The esophagus appeared grossly normal except for a small distal nonbleeding esophageal ulcer which may represent a Jackie- Chaudhari tear from vomiting prior to admission, biopsies of the distal esophagus were taken and the patient tolerated the procedure well. IMPRESSION: 1. Duodenitis, small hiatal hernia. Nonbleeding distal esophageal ulcer biopsied. 2. No active bleeding noted. RECOMMENDATIONS: The findings of this examination were discussed with the patient and his . Okay for liquid diet. Okay for tube feeds. Continue Protonix 40 mg twice a day, monitor hemoglobin and transfuse as needed. If patient has further fall in hemoglobin we will consider a colonoscopy, however at this time no further endoscopic evaluation is planned. Await pathology from biopsies.
--- NOTE | 2018-08-19 10:38 | P.PN ---
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 Dysphagia. Hypertension. Presents because of syncope, patient states that he passed out about 3 times. At the same time patient was noticed and he was vomiting of blood and which is was mostly brown in color but there was also blood in his PEG tube and blood in his stool. On admission his hemoglobin dropped from 9.4 to 7.8. And his INR was 0.9. Sodium 136. Potassium 5.2. Creatinine 1.3. With baseline from 1.1-1.2 pt is lying in bed not in distress ,no chest pain , no dyspea, his Hb is stable at 7.8 , virtals are stable as well, pt is going for GI endoscopy tomorrow. he went to his radiotherapy today . at bed and all their questions were answered to their satisfaction . 08/19/2018 Patient hemoglobins dropped today to 6.7. Risks benefits and alternatives found except for the patient for blood transfusion and he and the at bedside agreed and gave consent. He is status post EGD: Duodenitis and esophageal ulcer, nonbleeding. Vital stable. WBC 3.1. Platelets 133. BMP was unremarkable with creatinine 1.0 My review of systems CONSTITUTIONAL: No fever, no malaise, no fatigue. HEENT: No recent visual problems or hearing problems. Denied any sore throat. CARDIOVASCULAR: No orthopnea, PND, no palpitations, no syncope. PULMONARY: No shortness of breath, no cough, no hemoptysis. GASTROINTESTINAL: No diarrhea, no nausea, no vomiting, no abdominal pain. Normoactive bowel sounds. NEUROLOGICAL: No headaches, no weakness, no numbness. HEMATOLOGICAL: Denies any bleeding or petechiae. GENITOURINARY: Denies any burning micturition, frequency, or urgency. MUSCULOSKELETAL/RHEUMATOLOGICAL: Denies any joint pain, swelling, or any muscle pain. ENDOCRINE: Denies any polyuria or polydipsia. Medications reviewed including diphenhydramine, Xanax, Norvasc, 7 , Ringer lactate, lidocaine, metoprolol, Zofran, Protonix, Metamucil, and normal saline. Objective - Vital Signs Vital signs: Vital Signs Temp 97.7 F 08/19/18 09:06 Pulse 70 12/11/18 09:06 Resp 17 08/19/18 09:06 BP 121/74 08/19/18 09:06 Pulse Ox 98 08/19/18 09:06 Intake & Output 08/18/18 08/19/18 08/19/18 18:59 06:59 18:59 Intake Total 640 1020 200 Balance 640 1020 200 Weight 75.189 kg Intake: IV 200 Intake, IV Titration 640 960 Amount Sodium Chloride 0.9% 1, 640 960 000 ml @ 80 mls/hr IV . [id number] [facility] Rx#:[id number] Oral 0 Other 60 - Exam GENERAL: The patient is alert and oriented x3, not in any acute distress. Well developed, well nourished. HEENT: Pupils are round and equally reacting to light. EOMI. No scleral icterus. No conjunctival pallor. Normocephalic, atraumatic. No pharyngeal erythema. No thyromegaly. CARDIOVASCULAR: S1 and S2 present. No murmurs, rubs, or gallops. PULMONARY: Chest is clear to auscultation, no wheezing or crackles. ABDOMEN: Soft, nontender, nondistended, normoactive bowel sounds. No palpable organomegaly. MUSCULOSKELETAL: No joint swelling or deformity. EXTREMITIES: No cyanosis, clubbing, or pedal edema. NEUROLOGICAL: Gross neurological examination did not reveal any focal deficits. SKIN: No rashes. - Labs CBC & Chem 7: 08/19/18 07:13 08/19/18 07:13 Labs: Abnormal Lab Results - Last 24 Hours (Table) 08/17/18 08/18/18 08/18/18 Range/Units 13:00 08:06 08:06 WBC (3.8-10.6) k/uL RBC (4.30-5.90) m/uL Hgb (13.0-17.5) gm/dL Hct (39.0-53.0) % Plt Count (150-450) k/uL Lymphocytes # (1.0-4.8) k/uL BUN (9-20) mg/dL Calcium (8.4-10.2) mg/dL Iron 218 H (65-175) ug/dL TIBC 222 L (228-460) ug/dL Iron Saturation 98.20 H (15.00-50.00) Ferritin 1598.3 H (22.0-322.0) ng/mL Vitamin B12 1444.0 H (200.0-944.0) pg/mL RBC Folate 1,330 H (280 - 791) ng/mL Crossmatch See Detail 08/19/18 08/19/18 Range/Units 07:13 07:13 WBC 3.1 L (3.8-10.6) k/uL RBC 2.17 L (4.30-5.90) m/uL Hgb 6.7 L* (13.0-17.5) gm/dL Hct 18.7 L* (39.0-53.0) % Plt Count 133 L (150-450) k/uL Lymphocytes # 0.2 L (1.0-4.8) k/uL BUN 34 H (9-20) mg/dL Calcium 8.1 L (8.4-10.2) mg/dL Iron (65-175) ug/dL TIBC (228-460) ug/dL Iron Saturation (15.00-50.00) Ferritin (22.0-322.0) ng/mL Vitamin B12 (200.0-944.0) pg/mL RBC Folate (280 - 791) ng/mL Crossmatch Assessment and Plan Assessment: Recurrent syncope acute GI bleed Acute blood loss anemia History of atrial fibrillation History of cancer on the base of the tongue, status post chemo radiotherapy Dysphagia Essential hypertension. . Plan: This is a pleasant 58 years old male who presents because of syncope. Continue with IV fluids and call cardiology and GI consult. Telemetry Labs and medication were reviewed. Hold Eliquis. Continue same treatment. Continue with symptomatic treatment. Resume home medication. Monitor lytes and vitals. DVT and GI prophylaxis. Further recommendations of the clinical course of the patient DVT prophylaxis: Eliquis on hold in view of his GI bleed. No other anticoagulation for the same reason. GI Prophylaxis: Protonix Prognosis is guarded
[2018-08-19] MEDS: METOPROLOL TARTRATE 25 MG TAB PO SCH ×3 (11:17→21:24)
[2018-08-19] MEDS: amLODIPine 5 MG TAB PO SCH (11:18)
[2018-08-19] MEDS: PANTOPRAZOLE 40 MG/10 ML VIAL IV SCH ×2 (11:18→21:24)
[2018-08-19] MEDS: CEVIMELINE 30 MG CAP PO SCH ×3 (11:18→21:24)
--- NOTE | 2018-08-19 12:34 | P.PN ---
Subjective Progress Note Date: 08/19/18 Principal diagnosis: Hematemesis Pt seen today in f/u, he is alert but slow today, he just had EGD this AM, his Hgb is 6.7 so a unit of bleed is ordered. He is hungry as he has not ate anything for at least "3 ..... days". Did speak with GI METALLURGIST HELPER and hopefully we can get his tube feeds running again He denies vomiting, thinks he may have a BM, denied diarrhea, no further bleeding to report or pain, he is weak. Objective - Vital Signs Vital signs: Vital Signs Temp 98.6 F 08/19/18 12:03 Pulse 59 L 08/19/18 12:03 Resp 18 08/19/18 12:03 BP 148/88 08/19/18 12:03 Pulse Ox 95 08/19/18 12:03 Intake & Output 08/18/18 08/19/18 08/19/18 18:59 06:59 18:59 Intake Total 640 1020 200 Balance 640 1020 200 Weight 75.189 kg Intake: IV 200 Intake, IV Titration 640 960 Amount Sodium Chloride 0.9% 1, 640 960 000 ml @ 80 mls/hr IV . [id number] [facility] Rx#:[id number] Oral 0 Blood Product 0 Rc As-1 Unit 0 [id number] Other 60 - Constitutional General appearance: Present: average body habitus, cooperative, no acute distress - EENT EENT Comment(s): dry mucus membranes Eyes: Present: anicteric sclerae, EOMI - Neck Details: left anterior cervical LN mass is smaller, softer. Skin showing redness from radiation changes, no blisters Neck: Present: lymphadenopathy - Respiratory Respiratory: bilateral: CTA - Cardiovascular Rhythm: irregularly irregular Heart sounds: normal: S1, S2 Abnormal Heart Sounds: Absent: systolic murmur, diastolic murmur, rub, S3 Gallop , S4 Gallop, click, other - Peripheral edema leg Peripheral Edema: bilateral: None - Gastrointestinal General gastrointestinal: Present: normal bowel sounds, soft. Absent: absent bowel sounds, decreased bowel sounds, distended, hepatomegaly, hyperactive bowel sounds, organomegaly, rigid, scaphoid, splenomegaly, tenderness, umbilical hernia, ventral hernia - Integumentary Integumentary: Present: pale - Neurologic Neurologic: Present: CNII-XII intact - Musculoskeletal Musculoskeletal: Present: generalized weakness - Psychiatric Psychiatric: Present: A&O x's 3, appropriate affect, intact judgment & insight - Labs CBC & Chem 7: 08/19/18 07:13 08/19/18 07:13 Labs: Abnormal Lab Results - Last 24 Hours (Table) 08/17/18 08/18/18 08/18/18 Range/Units 13:00 08:06 08:06 WBC (3.8-10.6) k/uL RBC (4.30-5.90) m/uL Hgb (13.0-17.5) gm/dL Hct (39.0-53.0) % Plt Count (150-450) k/uL Lymphocytes # (1.0-4.8) k/uL BUN (9-20) mg/dL Calcium (8.4-10.2) mg/dL Iron 218 H (65-175) ug/dL TIBC 222 L (228-460) ug/dL Iron Saturation 98.20 H (15.00-50.00) Ferritin 1598.3 H (22.0-322.0) ng/mL Vitamin B12 1444.0 H (200.0-944.0) pg/mL RBC Folate 1,330 H (280 - 791) ng/mL Crossmatch See Detail 08/19/18 08/19/18 Range/Units 07:13 07:13 WBC 3.1 L (3.8-10.6) k/uL RBC 2.17 L (4.30-5.90) m/uL Hgb 6.7 L* (13.0-17.5) gm/dL Hct 18.7 L* (39.0-53.0) % Plt Count 133 L (150-450) k/uL Lymphocytes # 0.2 L (1.0-4.8) k/uL BUN 34 H (9-20) mg/dL Calcium 8.1 L (8.4-10.2) mg/dL Iron (65-175) ug/dL TIBC (228-460) ug/dL Iron Saturation (15.00-50.00) Ferritin (22.0-322.0) ng/mL Vitamin B12 (200.0-944.0) pg/mL RBC Folate (280 - 791) ng/mL Crossmatch Assessment and Plan (1) Syncope Narrative/Plan: Patient has not had a syncopal episode since admit, vital signs are been stable. Patient's hemoglobin has dropped slightly since admission, 1 unit of packed red blood cells as ordered. His anemia is likely progressive due to multiple factors including what is suspected an acute bleed and also chemotherapy effects as well as dilution from hydration support. Current Visit: Yes Status: Acute Priority: High Code(s): R55 - SYNCOPE AND COLLAPSE SNOMED Code(s): 801295195 (2) Upper GI bleed Narrative/Plan: Status post EGD this a.m. Operative note reviewed. Was a discussion of ulceration at the distal portion of the esophagus. Protonix twice a day was ordered by gastroenterology. Did ask GI METALLURGIST HELPER if we could resume PEG tube feedings , will be resumed at a slow rate initially and titrated to tolerance. Once hemoglobin has stabilized patient will have to consider resuming anticoagulation for atrial fibrillation. Current Visit: Yes Status: Acute Priority: High Code(s): K92.2 - GASTROINTESTINAL HEMORRHAGE, UNSPECIFIED SNOMED Code(s): 65666982 (3) Anemia Narrative/Plan: Multifactorial. One unit of packed red blood cells ordered. CBC in a.m. Current Visit: Yes Status: Acute Priority: High Code(s): D64.9 - ANEMIA, UNSPECIFIED SNOMED Code(s): 001714594 (4) Atrial fibrillation Narrative/Plan: I would suspect resumption of anticoagulation for atrial fibrillation. We will await hemoglobin stability. Current Visit: Yes Status: Acute Priority: High Code(s): I48.91 - UNSPECIFIED ATRIAL FIBRILLATION SNOMED Code(s): 45731949 (5) Head and neck cancer Narrative/Plan: Patient has completed chemotherapy, he completed radiation yesterday! Follow- up treatment imaging is typically planned 2-3 weeks after completion of treatment. We will make sure patient has those appointments scheduled and follow-up with primary Oncologist. Current Visit: Yes Status: Acute Priority: High Code(s): C76.0 - MALIGNANT NEOPLASM OF HEAD, FACE AND NECK SNOMED Code(s): 203330929 (6) Dehydration Narrative/Plan: Renal function slow to improve with hydration. Patient has been on IV fluids. Plan to resume PEG tube feedings. Current Visit: Yes Status: Acute Priority: High Code(s): E86.0 - DEHYDRATION SNOMED Code(s): 29135628
[2018-08-19 14:01] VITALS: RESP 16
[2018-08-19] MEDS: SODIUM CHLORIDE 0.9% 1,000 ML IV SCH (18:46)
[2018-08-19] MEDS: LACTATED RINGERS 1,000 ML IV SCH (21:29)
[2018-08-20 01:18] LABS: Glucose,Whole Blood 129 mg/dL (75-99)
[2018-08-20 05:06] LABS: Hemoglobin A1C 6.4 % (4.0-6.0)
[2018-08-20] MEDS: SODIUM CHLORIDE 0.9% 1,000 ML IV SCH ×2 (06:38→17:39)
[2018-08-20 06:43] LABS: Glucose,Whole Blood 114 mg/dL (75-99)
[2018-08-20 08:43] LABS: Basophils % (A) 0 %; Eosinophils % (A) 1 %; HCT 23.8 % (39.0-53.0); Hyperchromasia Slight; Lymphocytes # (A) 0.2 k/uL (1.0-4.8); Lymphocytes % (A) 5 %; MCH 32.1 pg (25.0-35.0); MCHC 37.3 g/dL (31.0-37.0); Mean Platelet Volume 7.1; Monocytes # (A) 0.2 k/uL (0-1.0); Monocytes % (A) 6 %; Neutrophils # (A) 3.1 k/uL (1.3-7.7); Neutrophils % (A) 87 %; Platelet Count 154 k/uL (150-450); RBC 2.76 m/uL (4.30-5.90); RDW 13.8 % (11.5-15.5); WBC 3.6 k/uL (3.8-10.6)
[2018-08-20 08:45] LABS: HGB 8.9 gm/dL (13.0-17.5)
[2018-08-20] MEDS: MAG HYDROX/AL HYDROX/SIMETH 30 ML, diphenhydrAMINE ELIXIR 75 MG, LIDOCAINE VISCOUS 30 ML PO SCH ×9 (10:00→15:56)
[2018-08-20] MEDS: METOPROLOL TARTRATE 25 MG TAB PO SCH ×3 (10:00→20:54)
[2018-08-20] MEDS: amLODIPine 5 MG TAB PO SCH (10:01)
[2018-08-20] MEDS: PSYLLIUM HUSK 100% 6 GM PACKET PO SCH (10:02)
[2018-08-20] MEDS: PANTOPRAZOLE 40 MG/10 ML VIAL IV SCH ×2 (10:02→20:54)
[2018-08-20] MEDS: CEVIMELINE 30 MG CAP PO SCH ×3 (10:02→20:54)
--- NOTE | 2018-08-20 10:30 | P.PN ---
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 Dysphagia. Hypertension. Presents because of syncope, patient states that he passed out about 3 times. At the same time patient was noticed and he was vomiting of blood and which is was mostly brown in color but there was also blood in his PEG tube and blood in his stool. On admission his hemoglobin dropped from 9.4 to 7.8. And his INR was 0.9. Sodium 136. Potassium 5.2. Creatinine 1.3. With baseline from 1.1-1.2 pt is lying in bed not in distress ,no chest pain , no dyspea, his Hb is stable at 7.8 , virtals are stable as well, pt is going for GI endoscopy tomorrow. he went to his radiotherapy today . at bed and all their questions were answered to their satisfaction . 08/19/2018 Patient hemoglobins dropped today to 6.7. Risks benefits and alternatives found except for the patient for blood transfusion and he and the at bedside agreed and gave consent. He is status post EGD: Duodenitis and esophageal ulcer, nonbleeding. Vital stable. WBC 3.1. Platelets 133. BMP was unremarkable with creatinine 1.0 08/20/2018. Repeat hemoglobin today is 8.9. Patient is status post EGD yesterday with showing esophageal ulcer with no active bleeding. He got one unit of blood transfusion yesterday. Hemoglobin today is 8.9. We discussed the case with a GI team. Start Eliquis. And we'll monitor his hemoglobin tomorrow. Objective - Vital Signs Vital signs: Vital Signs Temp 97.3 F L 08/20/18 05:00 Pulse 76 08/20/18 05:00 Resp 16 08/20/18 05:00 BP 124/80 08/20/18 05:00 Pulse Ox 97 08/20/18 05:00 Intake & Output 08/19/18 08/20/18 08/20/18 18:59 06:59 18:59 Intake Total 520 80 Balance 520 80 Weight 75.189 kg 70.5 kg Intake: IV 200 Tube Feeding 10 80 Blood Product 310 Rc As-1 Unit 310 [id number] Other: # Voids 2 - Exam GENERAL: The patient is alert and oriented x3, not in any acute distress. Well developed, well nourished. HEENT: Pupils are round and equally reacting to light. EOMI. No scleral icterus. No conjunctival pallor. Normocephalic, atraumatic. No pharyngeal erythema. No thyromegaly. CARDIOVASCULAR: S1 and S2 present. No murmurs, rubs, or gallops. PULMONARY: Chest is clear to auscultation, no wheezing or crackles. ABDOMEN: Soft, nontender, nondistended, normoactive bowel sounds. No palpable organomegaly. MUSCULOSKELETAL: No joint swelling or deformity. EXTREMITIES: No cyanosis, clubbing, or pedal edema. NEUROLOGICAL: Gross neurological examination did not reveal any focal deficits. SKIN: No rashes. - Labs CBC & Chem 7: 08/20/18 07:55 08/19/18 07:13 Labs: Abnormal Lab Results - Last 24 Hours (Table) 08/17/18 08/19/18 08/20/18 Range/Units 13:00 07:13 01:15 WBC (3.8-10.6) k/uL RBC (4.30-5.90) m/uL Hgb (13.0-17.5) gm/dL Hct (39.0-53.0) % MCHC (31.0-37.0) g/dL Lymphocytes # (1.0-4.8) k/uL POC Glucose (mg/dL) 129 H (75-99) mg/dL Hemoglobin A1c 6.4 H (4.0-6.0) % Crossmatch See Detail 08/20/18 08/20/18 Range/Units 06:41 07:55 WBC 3.6 L (3.8-10.6) k/uL RBC 2.76 L (4.30-5.90) m/uL Hgb 8.9 L D (13.0-17.5) gm/dL Hct 23.8 L (39.0-53.0) % MCHC 37.3 H (31.0-37.0) g/dL Lymphocytes # 0.2 L (1.0-4.8) k/uL POC Glucose (mg/dL) 114 H (75-99) mg/dL Hemoglobin A1c (4.0-6.0) % Crossmatch Assessment and Plan Assessment: Recurrent syncope acute GI bleed Acute blood loss anemia History of atrial fibrillation History of cancer on the base of the tongue, status post chemo radiotherapy Dysphagia Essential hypertension. . Plan: This is a pleasant 58 years old male who presents because of syncope. Continue with IV fluids and call cardiology and GI consult. Telemetry Labs and medication were reviewed. Hold Eliquis. Continue same treatment. Continue with symptomatic treatment. Resume home medication. Monitor lytes and vitals. DVT and GI prophylaxis. Further recommendations of the clinical course of the patient DVT prophylaxis: Eliquis on hold in view of his GI bleed. No other anticoagulation for the same reason. GI Prophylaxis: Protonix Prognosis is guarded
--- NOTE | 2018-08-20 10:36 | P.PN ---
Subjective Progress Note Date: 08/20/18 Principal diagnosis: anemia Feels well. HGB 8.9. Passing bowel movement that appear "dark" but not grossly black or red. Denies abdominal pain tolerating TF. Objective - Vital Signs Vital signs: Vital Signs Temp 97.3 F L 08/20/18 05:00 Pulse 76 08/20/18 05:00 Resp 16 08/20/18 05:00 BP 124/80 08/20/18 05:00 Pulse Ox 97 08/20/18 05:00 Intake & Output 08/19/18 08/20/18 08/20/18 18:59 06:59 18:59 Intake Total 520 80 Balance 520 80 Weight 75.189 kg 70.5 kg Intake: IV 200 Tube Feeding 10 80 Blood Product 310 Rc As-1 Unit 310 [id number] Other: # Voids 2 - Constitutional General appearance: Present: average body habitus - EENT Eyes: Present: normal appearance ENT: Present: normal oropharynx Ears: bilateral: normal - Neck Neck: Present: normal ROM - Respiratory Respiratory: bilateral: CTA - Cardiovascular Heart sounds: normal: S1, S2 - Gastrointestinal Gastrointestinal Comment(s): peg intake without erythema or drainage General gastrointestinal: Present: soft - Integumentary Integumentary: Present: normal turgor - Neurologic Neurologic: Present: CNII-XII intact - Psychiatric Psychiatric: Present: A&O x's 3 - Labs CBC & Chem 7: 08/20/18 07:55 08/19/18 07:13 Labs: Abnormal Lab Results - Last 24 Hours (Table) 08/17/18 08/19/18 08/20/18 Range/Units 13:00 07:13 01:15 WBC (3.8-10.6) k/uL RBC (4.30-5.90) m/uL Hgb (13.0-17.5) gm/dL Hct (39.0-53.0) % MCHC (31.0-37.0) g/dL Lymphocytes # (1.0-4.8) k/uL POC Glucose (mg/dL) 129 H (75-99) mg/dL Hemoglobin A1c 6.4 H (4.0-6.0) % Crossmatch See Detail 08/20/18 08/20/18 Range/Units 06:41 07:55 WBC 3.6 L (3.8-10.6) k/uL RBC 2.76 L (4.30-5.90) m/uL Hgb 8.9 L D (13.0-17.5) gm/dL Hct 23.8 L (39.0-53.0) % MCHC 37.3 H (31.0-37.0) g/dL Lymphocytes # 0.2 L (1.0-4.8) k/uL POC Glucose (mg/dL) 114 H (75-99) mg/dL Hemoglobin A1c (4.0-6.0) % Crossmatch Assessment and Plan (1) Anemia, blood loss Current Visit: Yes Status: Acute Code(s): D50.0 - IRON DEFICIENCY ANEMIA SECONDARY TO BLOOD LOSS (CHRONIC) SNOMED Code(s): 670903731 (2) Head and neck cancer Current Visit: Yes Status: Acute Priority: High Code(s): C76.0 - MALIGNANT NEOPLASM OF HEAD, FACE AND NECK SNOMED Code(s): 867299652 (3) Atrial fibrillation with RVR Current Visit: No Status: Acute Code(s): I48.91 - UNSPECIFIED ATRIAL FIBRILLATION SNOMED Code(s): 039343112458187 Plan: 1. Restart Eliquis and observe CBC. If patient develops drop in hemoglobin and or active GI bleed further endoscopic workup is advised. Continue TF. Assessment and plan of care discussed with Dr. Rollins
[2018-08-20 12:18] LABS: Glucose,Whole Blood 124 mg/dL (75-99)
[2018-08-20 17:49] LABS: Glucose,Whole Blood 121 mg/dL (75-99)
--- NOTE | 2018-08-20 18:32 | P.PN ---
Subjective Progress Note Date: 08/20/18 Principal diagnosis: Hematemesis Pt seen in f/u, his PEG feed has been resumed, no fullness, nausea, vomiting, he has soft BM, no abd pain or cramping, he can tolerate liquids but no solids- he vomited his cereal. He is feeling a little better, he is ambulating in the room. Objective - Vital Signs Vital signs: Vital Signs Temp 98.4 F 08/20/18 12:09 Pulse 60 08/20/18 12:09 Resp 16 08/20/18 12:09 BP 141/78 08/20/18 12:09 Pulse Ox 97 08/20/18 12:09 Intake & Output 08/19/18 08/20/18 08/20/18 18:59 06:59 18:59 Intake Total 520 80 320 Balance 520 80 320 Weight 75.189 kg 70.5 kg Intake: IV 200 Tube Feeding 10 80 320 Blood Product 310 Rc As-1 Unit 310 [id number] Other: # Voids 2 - Constitutional General appearance: Present: average body habitus, cooperative, no acute distress - EENT Eyes: Present: anicteric sclerae, EOMI ENT: Present: hearing grossly normal, normal oropharynx - Respiratory Respiratory: bilateral: CTA - Cardiovascular Heart sounds: normal: S1, S2 - Peripheral edema leg Peripheral Edema: bilateral: None - Gastrointestinal General gastrointestinal: Present: normal bowel sounds, soft - Integumentary Integumentary: Present: normal, pale - Neurologic Neurologic: Present: CNII-XII intact - Musculoskeletal Musculoskeletal: Present: strength equal bilaterally - Psychiatric Psychiatric: Present: A&O x's 3, appropriate affect, intact judgment & insight - Labs CBC & Chem 7: 08/20/18 07:55 08/19/18 07:13 Labs: Abnormal Lab Results - Last 24 Hours (Table) 08/19/18 08/20/18 08/20/18 Range/Units 07:13 01:15 06:41 WBC (3.8-10.6) k/uL RBC (4.30-5.90) m/uL Hgb (13.0-17.5) gm/dL Hct (39.0-53.0) % MCHC (31.0-37.0) g/dL Lymphocytes # (1.0-4.8) k/uL POC Glucose (mg/dL) 129 H 114 H (75-99) mg/dL Hemoglobin A1c 6.4 H (4.0-6.0) % 08/20/18 08/20/18 08/20/18 Range/Units 07:55 12:17 17:47 WBC 3.6 L (3.8-10.6) k/uL RBC 2.76 L (4.30-5.90) m/uL Hgb 8.9 L D (13.0-17.5) gm/dL Hct 23.8 L (39.0-53.0) % MCHC 37.3 H (31.0-37.0) g/dL Lymphocytes # 0.2 L (1.0-4.8) k/uL POC Glucose (mg/dL) 124 H 121 H (75-99) mg/dL Hemoglobin A1c (4.0-6.0) % Assessment and Plan (1) Syncope Narrative/Plan: None since admit Current Visit: Yes Status: Acute Priority: High Code(s): R55 - SYNCOPE AND COLLAPSE SNOMED Code(s): 034929517 (2) Upper GI bleed Narrative/Plan: Hgb stable, improved, EGD showed small ulcer, no further bleeding noted, pt vomited his cereal without mention of blood. No further intervention planned after reading notes Current Visit: Yes Status: Acute Priority: High Code(s): K92.2 - GASTROINTESTINAL HEMORRHAGE, UNSPECIFIED SNOMED Code(s): 68094790 (3) Anemia Narrative/Plan: Hgb stable. CBC daily. Current Visit: Yes Status: Acute Priority: High Code(s): D64.9 - ANEMIA, UNSPECIFIED SNOMED Code(s): 000523191 (4) Atrial fibrillation Narrative/Plan: Eliquis was resumed today Current Visit: Yes Status: Acute Priority: High Code(s): I48.91 - UNSPECIFIED ATRIAL FIBRILLATION SNOMED Code(s): 48761776 (5) Head and neck cancer Narrative/Plan: Treatment completed. F/U after discharge Current Visit: Yes Status: Acute Priority: High Code(s): C76.0 - MALIGNANT NEOPLASM OF HEAD, FACE AND NECK SNOMED Code(s): 425679620 (6) Dehydration Narrative/Plan: Improved. PEG feed resumed, pt is drinking fluids only to tolerance Current Visit: Yes Status: Acute Priority: High Code(s): E86.0 - DEHYDRATION SNOMED Code(s): 91542652
[2018-08-20] MEDS: LACTATED RINGERS 1,000 ML IV SCH (19:22)
[2018-08-20] MEDS: ONDANSETRON 4 MG/2 ML VIAL IVP PRN (19:29)
[2018-08-20] MEDS: APIXABAN 5 MG TAB PO SCH (20:54)
[2018-08-21 02:41] LABS: Glucose,Whole Blood 143 mg/dL (75-99)
[2018-08-21] MEDS: SODIUM CHLORIDE 0.9% 1,000 ML IV SCH (03:34)
[2018-08-21 06:07] LABS: Glucose,Whole Blood 119 mg/dL (75-99)
[2018-08-21 08:35] LABS: Basophils % (A) 0 %; Eosinophils % (A) 1 %; HCT 23.8 % (39.0-53.0); HGB 8.3 gm/dL (13.0-17.5); Lymphocytes # (A) 0.1 k/uL (1.0-4.8); Lymphocytes % (A) 3 %; MCH 30.5 pg (25.0-35.0); Mean Platelet Volume 7.1; Monocytes # (A) 0.2 k/uL (0-1.0); Monocytes % (A) 4 %; Neutrophils # (A) 4.1 k/uL (1.3-7.7); Neutrophils % (A) 91 %; Platelet Count 161 k/uL (150-450); RBC 2.74 m/uL (4.30-5.90); RDW 13.6 % (11.5-15.5); WBC 4.5 k/uL (3.8-10.6)
[2018-08-21] MEDS: amLODIPine 5 MG TAB PO SCH (10:08)
[2018-08-21] MEDS: METOPROLOL TARTRATE 25 MG TAB PO SCH ×2 (10:08→17:19)
[2018-08-21] MEDS: MAG HYDROX/AL HYDROX/SIMETH 30 ML, diphenhydrAMINE ELIXIR 75 MG, LIDOCAINE VISCOUS 30 ML PO SCH ×9 (10:09→11:25)
[2018-08-21] MEDS: CEVIMELINE 30 MG CAP PO SCH ×2 (10:09→17:19)
[2018-08-21] MEDS: APIXABAN 5 MG TAB PO SCH (10:09)
[2018-08-21] MEDS: PANTOPRAZOLE 40 MG/10 ML VIAL IV SCH (10:11)
[2018-08-21 10:20] VITALS: BMI 23.6
[2018-08-21] MEDS: PSYLLIUM HUSK 100% 6 GM PACKET PO SCH (10:27)
[2018-08-21 12:00] LABS: Glucose,Whole Blood 134 mg/dL (75-99)
[2018-08-21 12:08] VITALS: BP 126/79; PULSE 61; TEMP 96.8
--- NOTE | 2018-08-21 12:23 | P.PN ---
Subjective Progress Note Date: 08/21/18 Principal diagnosis: anemia Feels well. HGB 8.3. Denies hematemesis hematochezia melena. Anticoagulation restarted. Denies abdominal pain tolerating TF. Objective - Vital Signs Vital signs: Vital Signs Temp 96.8 F L 08/21/18 12:07 Pulse 61 08/21/18 12:07 Resp 16 08/21/18 12:07 BP 126/79 08/21/18 12:07 Pulse Ox 98 08/21/18 12:07 Intake & Output 08/20/18 08/21/18 08/21/18 18:59 06:59 18:59 Intake Total 320 600 50 Balance 320 600 50 Weight 74.5 kg 74.5 kg Intake: Oral 120 Tube Feeding 320 480 50 Other: # Voids 1 - Exam General appearance: The patient is alert, oriented, in no acute distress. HET: Head is normocephalic and atraumatic. Pupils are equal and reactive. Oropharynx is clear without lesions. Neck: Supple without lymphadenopathy. Trachea midline. Heart: S1 S2. Regular rate and rhythm. Lungs: No crackles or wheezes are heard. Abdomen: Soft, nontender, nondistended with bowel sounds. G-tube intact without erythema or drainage. No peritoneal signs. No palpable organomegaly or masses. Extremities: Normal skin color and turgor. No cyanosis, rash, ulceration, clubbing, or edema. Radial and pedal pulses are 2/4 bilaterally. Neurological: No focal deficits. Strength and sensation are grossly intact. - Labs CBC & Chem 7: 08/21/18 07:44 08/19/18 07:13 Labs: Abnormal Lab Results - Last 24 Hours (Table) 08/20/18 08/21/18 08/21/18 Range/Units 17:47 02:40 06:05 RBC (4.30-5.90) m/uL Hgb (13.0-17.5) gm/dL Hct (39.0-53.0) % Lymphocytes # (1.0-4.8) k/uL POC Glucose (mg/dL) 121 H 143 H 119 H (75-99) mg/dL 08/21/18 08/21/18 Range/Units 07:44 11:58 RBC 2.74 L (4.30-5.90) m/uL Hgb 8.3 L (13.0-17.5) gm/dL Hct 23.8 L (39.0-53.0) % Lymphocytes # 0.1 L (1.0-4.8) k/uL POC Glucose (mg/dL) 134 H (75-99) mg/dL Assessment and Plan (1) Anemia, blood loss Current Visit: Yes Status: Acute Code(s): D50.0 - IRON DEFICIENCY ANEMIA SECONDARY TO BLOOD LOSS (CHRONIC) SNOMED Code(s): 867763338 (2) Head and neck cancer Current Visit: Yes Status: Acute Priority: High Code(s): C76.0 - MALIGNANT NEOPLASM OF HEAD, FACE AND NECK SNOMED Code(s): 215261440 (3) Atrial fibrillation with RVR Current Visit: No Status: Acute Code(s): I48.91 - UNSPECIFIED ATRIAL FIBRILLATION SNOMED Code(s): 909138496179554 Plan: 1. Continue Eliquis. Presently no active bleeding from a GI standpoint agreeable for discharge. Continue TF. Will follow as needed. Assessment and plan of care discussed with Dr. Rollins
--- NOTE | 2018-08-21 12:37 | P.PN ---
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 Dysphagia. Hypertension. Presents because of syncope, patient states that he passed out about 3 times. At the same time patient was noticed and he was vomiting of blood and which is was mostly brown in color but there was also blood in his PEG tube and blood in his stool. On admission his hemoglobin dropped from 9.4 to 7.8. And his INR was 0.9. Sodium 136. Potassium 5.2. Creatinine 1.3. With baseline from 1.1-1.2 pt is lying in bed not in distress ,no chest pain , no dyspea, his Hb is stable at 7.8 , virtals are stable as well, pt is going for GI endoscopy tomorrow. he went to his radiotherapy today . at bed and all their questions were answered to their satisfaction . 08/19/2018 Patient hemoglobins dropped today to 6.7. Risks benefits and alternatives found except for the patient for blood transfusion and he and the at bedside agreed and gave consent. He is status post EGD: Duodenitis and esophageal ulcer, nonbleeding. Vital stable. WBC 3.1. Platelets 133. BMP was unremarkable with creatinine 1.0 08/20/2018. Repeat hemoglobin today is 8.9. Patient is status post EGD yesterday with showing esophageal ulcer with no active bleeding. He got one unit of blood transfusion yesterday. Hemoglobin today is 8.9. We discussed the case with a GI team. Start Eliquis. And we'll monitor his hemoglobin tomorrow. 08/21/2018 Patient remains with no chest pain no abdominal pain. No nausea vomiting. His hemoglobin dropped a little bit from 8.9 to 8.3. Patient is already started on Eliquis. Keep monitoring his hemoglobin level. Objective - Vital Signs Vital signs: Vital Signs Temp 96.8 F L 08/21/18 12:07 Pulse 61 08/21/18 12:07 Resp 16 08/21/18 12:07 BP 126/79 08/21/18 12:07 Pulse Ox 98 08/21/18 12:07 Intake & Output 08/20/18 08/21/18 08/21/18 18:59 06:59 18:59 Intake Total 320 600 50 Balance 320 600 50 Weight 74.5 kg 74.5 kg Intake: Oral 120 Tube Feeding 320 480 50 Other: # Voids 1 - Exam GENERAL: The patient is alert and oriented x3, not in any acute distress. Well developed, well nourished. HEENT: Pupils are round and equally reacting to light. EOMI. No scleral icterus. No conjunctival pallor. Normocephalic, atraumatic. No pharyngeal erythema. No thyromegaly. CARDIOVASCULAR: S1 and S2 present. No murmurs, rubs, or gallops. PULMONARY: Chest is clear to auscultation, no wheezing or crackles. ABDOMEN: Soft, nontender, nondistended, normoactive bowel sounds. No palpable organomegaly. MUSCULOSKELETAL: No joint swelling or deformity. EXTREMITIES: No cyanosis, clubbing, or pedal edema. NEUROLOGICAL: Gross neurological examination did not reveal any focal deficits. SKIN: No rashes. - Labs CBC & Chem 7: 08/21/18 07:44 08/19/18 07:13 Labs: Abnormal Lab Results - Last 24 Hours (Table) 08/20/18 08/21/18 08/21/18 Range/Units 17:47 02:40 06:05 RBC (4.30-5.90) m/uL Hgb (13.0-17.5) gm/dL Hct (39.0-53.0) % Lymphocytes # (1.0-4.8) k/uL POC Glucose (mg/dL) 121 H 143 H 119 H (75-99) mg/dL 08/21/18 08/21/18 Range/Units 07:44 11:58 RBC 2.74 L (4.30-5.90) m/uL Hgb 8.3 L (13.0-17.5) gm/dL Hct 23.8 L (39.0-53.0) % Lymphocytes # 0.1 L (1.0-4.8) k/uL POC Glucose (mg/dL) 134 H (75-99) mg/dL Assessment and Plan Assessment: Recurrent syncope acute GI bleed Acute blood loss anemia History of atrial fibrillation History of cancer on the base of the tongue, status post chemo radiotherapy Dysphagia Essential hypertension. . Plan: This is a pleasant 58 years old male who presents because of syncope. Continue with IV fluids and call cardiology and GI consult. Telemetry Labs and medication were reviewed. Hold Eliquis. Continue same treatment. Continue with symptomatic treatment. Resume home medication. Monitor lytes and vitals. DVT and GI prophylaxis. Further recommendations of the clinical course of the patient DVT prophylaxis: Eliquis on hold in view of his GI bleed. No other anticoagulation for the same reason. GI Prophylaxis: Protonix Prognosis is guarded
[2018-08-21 15:56] LABS: Basophils % (A) 0 %; Eosinophils % (A) 0 %; HCT 24.8 % (39.0-53.0); HGB 8.6 gm/dL (13.0-17.5); Lymphocytes % (A) 1 %; MCH 30.5 pg (25.0-35.0); MCHC 34.8 g/dL (31.0-37.0); MCV 87.8 fL (80.0-100.0); Monocytes # (A) 2.5 k/uL (0-1.0); Monocytes % (A) 46 %; Neutrophils # (A) 2.8 k/uL (1.3-7.7); Neutrophils % (A) 53 %; Platelet Count 182 k/uL (150-450); RBC 2.82 m/uL (4.30-5.90); RDW 13.7 % (11.5-15.5); WBC 5.4 k/uL (3.8-10.6)
[2018-08-21 16:38] LABS: Polychromasia Present
--- NOTE | 2018-08-29 08:42 | P.DS ---
Providers Date of admission: 08/17/18 12:04 Attending physician: Celeste Agarwal Consults: 08/17/18 17:54 Consult Physician Routine Consulting Provider: Maira Shore Consult Reason/Comments: a fib with gi bleed and syncope Do you want consulting provider notified?: Yes 08/17/18 17:55 Consult Physician Routine Consulting Provider: Kory Can Consult Reason/Comments: tongue ca Do you want consulting provider notified?: Yes Primary care physician: [facility] Course: pt was discharged on: 08/21/2018 This is a pleasant 58 years old male with past medical history of atrial fibrillation, syncope, 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 Presents because of syncope, patient states that he passed out about 3 times. with blood in his vomiting and PEG tube, Hb dropped to 6.7, he got blood transfusion and his HB was stable upon discharge. GI team did EGD: nonbleeding distal esophageal ulcer and duodenitis. Eliquis is restarted, Hb is stable , pt was cleared by GI for discharge. pt wanted to be discharge. pt and at bed side told me they have scripts for eliquis and other home medication, protonix script is provided for the pt upon discharge , pt problems and management plan was discussed with pt and he verbalized understanding and acceptance . pt was found stable and can be discharged home in guarded prognosis however he needs follow up as outpt. pt agrees with appointment and timing Discharge exam Gen.: Patient alert awake and oriented X 3, NOT IN DISTRESS CVS: s1-s2, RRR, no murmur CHEST:bilateral CTA, no wheezing or crepitation Abdomen: Soft, no tenderness, no distention, positive bowel sounds. PEG tube is in place. Extremities: No leg edema or induration time spent : more than 35 min Patient Condition at Discharge: Stable Plan - Discharge Summary Discharge Rx Participant: No New Discharge Prescriptions: New Pantoprazole Sodium [Protonix] 40 mg PO DAILY 30 Days #30 tablet. Continue Ondansetron [Zofran ODT] 4 mg PO Q4H PRN PRN Reason: Nausea Magic Mouthwash 15 ml PO AC-TID Cevimeline [Evoxac] 30 mg PO TID ALPRAZolam [Xanax] 0.25 mg PO Q8HR PRN PRN Reason: Anxiety Apixaban [Eliquis] 5 mg PO BID #60 tab amLODIPine [Norvasc] 5 mg PO DAILY #30 tab Metoprolol Tartrate [Lopressor] 25 mg PO TID #90 tab Psyllium Husk 100% [Metamucil Packet] 6 gm PO DAILY packet Dexamethasone See Taper PO DIRECTED Discharge Medication List ALPRAZolam [Xanax] 0.25 mg PO Q8HR PRN 07/21/18 [History] Cevimeline [Evoxac] 30 mg PO TID 07/21/18 [History] Magic Mouthwash 15 ml PO AC-TID 07/21/18 [History] Ondansetron [Zofran ODT] 4 mg PO Q4H PRN 07/21/18 [History] Apixaban [Eliquis] 5 mg PO BID #60 tab 07/24/18 [Rx] Metoprolol Tartrate [Lopressor] 25 mg PO TID #90 tab 08/11/18 [Rx] Psyllium Husk 100% [Metamucil Packet] 6 gm PO DAILY packet 08/11/18 [Rx] amLODIPine [Norvasc] 5 mg PO DAILY #30 tab 08/11/18 [Rx] Dexamethasone See Taper PO DIRECTED 08/17/18 [History] Pantoprazole Sodium [Protonix] 40 mg PO DAILY 30 Days #30 tablet. 08/21/18 [Rx ] Follow up Appointment(s)/Referral(s): Huang Traore MD [Primary Care Provider] - 08/25/18 10:30 am [facility], [REFERRING] - 1 Week Arash Eden MD [STAFF PHYSICIAN] - 2 Weeks (Office closed. Patient to make own follow-up appt. ) Arash Rollins MD [STAFF PHYSICIAN] - 08/29/18 12:30 pm Isabel Son MD [STAFF PHYSICIAN] - 09/22/18 3:45 pm Patient Instructions/Handouts: Pantoprazole (By mouth), Apixaban (By mouth), Gastrointestinal Bleeding (DC) Activity/Diet/Wound Care/Special Instructions: Tube feeding regimen: 5 cans of Two lola HN bolus/day. Flush with 90 ml free water before and after each feeding. Flush with an additional 120 ml free water 3 times per day between feedings to meet fluid needs Discharge Disposition: HOME WITH HOME HEALTH SERVICES
== END 2018-08-21 18:25 | disposition home health service (06) | DRG 378 ==
LOC: EC 06:09 → 3NMEDONC 12:04
PROVIDERS: ADMIT Internal Medicine; ATTEND Internal Medicine
PROC: 30233N1 Transfusion of Nonautologous Red Blood Cells into Peripheral Vein, Percutaneous Approach (ICD-10-PCS; 2018-08-19)
PROC: 0DB38ZX Excision of Lower Esophagus, Via Natural or Artificial Opening Endoscopic, Diagnostic (ICD-10-PCS; principal; 2018-08-19 08:15)
DX: K92.2 Gastrointestinal hemorrhage, unspecified (principal); D62 Acute posthemorrhagic anemia; K22.10 Ulcer of esophagus without bleeding; K29.80 Duodenitis without bleeding; I48.0 Paroxysmal atrial fibrillation; R13.10 Dysphagia, unspecified; I10 Essential (primary) hypertension; R55 Syncope and collapse; K44.9 Diaphragmatic hernia without obstruction or gangrene; E86.0 Dehydration; F41.9 Anxiety disorder, unspecified; C01 Malignant neoplasm of base of tongue; Z92.21 Personal history of antineoplastic chemotherapy; Z92.3 Personal history of irradiation; Z79.899 Other long term (current) drug therapy; Z79.01 Long term (current) use of anticoagulants; Z82.49 Family history of ischemic heart disease and other diseases of the circulatory system
CPT/HCPCS: 36415; 43239; 70450; 71046; 80048; 80053; 81003; 82271; 82550; 82553; 82607; 82728; 82747; 83036; 83540; 83550; 83735; 84484; 85025; 85027; 85610; 85730; 86850; 86900; 86901; 86920; 88305; 93005; 96361; 96374; 99285

== ENCOUNTER → 2018-10-25 | Outpatient (CLI) | payer OTHER ==
--- NOTE | 2018-10-29 13:54 | PE ---
EXAMINATION TYPE: PET CT fusion skull to thigh DATE OF EXAM: 10/25/2018 COMPARISON: Outside PET/CT images dated 06/07/2018. Reports are unavailable for comparison at the time of interpretation. 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 Surge ry was performed and June 2018. Last radiation and chemotherapy in August 2018. Subsequent isadora tment strategy. TECHNIQUE: Following the intravenous administration of 10.70 mCi of F-18 FDG, whole body images are performed from the skull base to the midthigh. Images are reviewed on the computer in the coronal, a xial, and sagittal planes. Reconstructed rotating images are created on independent workstation and reviewed on the computer. A localization and attenuation correction CT is performed in conjunction with the PET scan. SCAN: Subsequent although first at this institution. FINDINGS: Mediastinal background: 1.9 Abdominal background: 2.8 SKULL BASE AND NECK: There are centrally cystic large likely a necrotic lymph nodes seen deep to the sternocleidomastoid at the level of the hyoid and thyroid cartilage measuring 3 x 1.8 cm and 4.3 x 3 .4 cm respectively. These are hypometabolic with a maximum SUV of 0.7. Visually these appear similar in size to the prior of 06/07/2018, however measurements cannot be made on the provided perfusion imag es for comparison. Postsurgical and posttreatment changes seen at the left lateral tongue base with poor fat plane defin ition of the left submandibular gland, submandibular space, and left parapharyngeal space. CHEST, MEDIASTINUM, AND HILAR REGION: No suspicious hypermetabolic uptake. ABDOMEN AND PELVIS: No suspicious hypermetabolic uptake. OSSEOUS STRUCTURES: No suspicious hypermetabolic uptake. OTHER CT: There is mild polypoid mucosal thickening along the lateral wall of the right maxillary sin us. The left fossa of Rosenmuller is obscured, likely posttreatment change. There is also slight mass effect on the left piriform sinus, also likely posttreatment change. Possible intrafissural lymph node is seen along the right interlobar fissure on series 3 image 104. M inimal bibasilar subsegmental dependent atelectasis is noted. Mild background centrilobular emphysema tous change is seen within the lungs. Percutaneous enteric gastric tube is noted. Solid viscera are g rossly unremarkable. No dilated large or small bowel. Urinary bladder is decompressed with submucosal deposition of fat, possibly related to chronic cystitis. Moderate atherosclerosis of the abdominal a ender and its branches is noted. Osseous structures display mild multilevel degenerative change. Few c oronary artery calcifications are evident. IMPRESSION: 1. Posttreatment change of the posterior oropharynx without focal hypermetabolic activity to suggest local recurrence. The known enlarged necrotic level 2 and level 5A lymph nodes remain hypometabolic. Measurements from the outside prior PET/CT were not available and could not be performed on the submi tted images to compare size. 2. No new suspicious hypermetabolic uptake to suggest metastasis within the chest, abdomen, or pelvis .
== END | disposition home or self-care (01) ==
LOC: RADPETMAIN 09:14
PROVIDERS: ATTEND Radiology Radiation Oncology
DX: C01 Malignant neoplasm of base of tongue (principal)
CPT/HCPCS: 78815; A9552

== ENCOUNTER 2024-08-14 07:21 | Day surgery (SDC) | payer BC ==
[2024-08-14] MEDS ORDERED: ALPRAZolam 0.5 MG TAB PO PRN (07:25)
[2024-08-14] MEDS ORDERED: NITROGLYCERIN SL TABS 0.4 MG TAB SUBLINGUAL PRN ×2 (07:25→10:48)
[2024-08-14] MEDS: ASPIRIN 325 MG TAB PO STA (07:42)
[2024-08-14] MEDS: ALPRAZolam 0.25 MG TAB PO PRN (07:43)
[2024-08-14] MEDS: SODIUM CHLORIDE 0.9% 1,000 ML in EMPTY BAG 1 BAG IV SCH (07:43)
[2024-08-14] MEDS: IV FLUID CONTINUATION 1,000 ML IV ONE (07:48)
[2024-08-14 07:58] VITALS: RESP 16; TEMP 97.1
[2024-08-14] MEDS: ATORVASTATIN 80 MG TAB PO STA (07:58)
[2024-08-14 08:00] LABS: WBC 5.6 k/uL (3.8-10.6)
[2024-08-14 08:01] LABS: Basophils % (A) 1 %; Eosinophils # (A) 0.1 k/uL (0-0.7); Eosinophils % (A) 2 %; HCT 44.7 % (39.0-53.0); HGB 15.1 gm/dL (13.0-17.5); Lymphocytes % (A) 18 %; MCH 31.3 pg (25.0-35.0); MCHC 33.7 g/dL (31.0-37.0); Mean Platelet Volume 7.8; Monocytes # (A) 0.3 k/uL (0-1.0); Monocytes % (A) 5 %; Neutrophils # (A) 4.1 k/uL (1.3-7.7); Neutrophils % (A) 72 %; Platelet Count 181 k/uL (150-450); RBC 4.81 m/uL (4.30-5.90)
[2024-08-14 08:13] LABS: African American GFR (CKD) 87 (>60 ml/min/1.73 sqM); Anion Gap 5 mmol/L; Blood Urea Nitrogen 22 mg/dL (9-20); Calcium 8.9 mg/dL (8.4-10.2); Carbon Dioxide 30 mmol/L (22-30); Chloride 105 mmol/L (98-107); Glucose 103 mg/dL (74-99); Non-African American GFR(CKD) 75 (>60 ml/min/1.73 sqM); Sodium 140 mmol/L (137-145)
[2024-08-14 08:24] LABS: Potassium 4.3 mmol/L (3.5-5.1)
[2024-08-14] MEDS: MIDAZOLAM 2 MG/2 ML VIAL IVP ONE (09:08)
[2024-08-14] MEDS: fentaNYL (PF) 50 MCG/1 ML VIAL IVP ONE (09:08)
[2024-08-14] MEDS: LIDOCAINE 1% INJ 10MG/ML (20 ML MDV) SQ ONE (09:08)
[2024-08-14] MEDS: VERAPAMIL SYRINGE (5 MG/10 ML) INTRAARTER ONE (09:12)
[2024-08-14] MEDS: NITROGLYCERIN OINT 1 INCH/GM PACKET TOPICAL ONE (09:12)
[2024-08-14] MEDS: ENALAPRILAT 1.25 MG/ML 1 ML VIAL IVP ONE (09:12)
[2024-08-14] MEDS: HEPARIN SODIUM 1,000 UN/ML (10ML VL) IV ONE ×2 (09:13→10:04)
[2024-08-14] MEDS: HEPARIN SODIUM,PORCINE 10,000 UNIT in SODIUM CHLORIDE 0.9% 1,000 ML IRRIGATION PRN (09:18)
[2024-08-14] MEDS: HEPARIN SODIUM,PORCINE (1 ML) 2,500 UNIT in SODIUM CHLORIDE 0.9% 250 ML IRRIGATION PRN (09:18)
[2024-08-14] MEDS: CLOPIDOGREL 75 MG TAB PO ONE (09:32)
[2024-08-14] MEDS: NITROGLYCERIN 1000MCG/10ML SYRINGE INTRACORON ONE (09:41)
[2024-08-14] MEDS: PHENYLEPHRINE-0.9% NACL SYG 1,000 MCG/10 ML SYRINGE IVP ONE (09:50)
[2024-08-14] MEDS: IOPAMIDOL-370 100ML BTL INJ ONE (09:54)
--- NOTE | 2024-08-14 10:27 | P.PRCINT ---
Percutaneous Coronary Int. - Percutaneous Coronary Intervention Percutaneous Coronary Intervention: PROCEDURES PERFORMED: Right coronary angiography, IVUS of RCA, PCI of mid RCA with a 3.5 x 12mm Xience FIONA, post dilated with a 4.0mm NC balloon INDICATION: NYHA class 3 symptoms of CASTELLON and chest pain PROCEDURE: After the risks, benefits and alternatives of the above mentioned procedure explained in detail with the patient, informed consent was obtained. Patient was taken to the catheterization lab and prepped and draped in usual fashion. A 6-[place] Island[place] sheath was placed in the right radial artery previously for diagnostic procedure. The decision was made to perform PCI of the RCA. A 6-[place] AL 0.75 guide di sease engage RCA. A 0.014 BMW wire was advanced the distal RCA. Intravascular ultrasound showed some mild diffuse disease however more focal 80% mid RCA stenosis. Therefore decision made to perform PCI. Predilation was performed with a 3.5 mm balloon and then at 3.5 x 12 mm noncompliant balloon. Next a 3.5 x 12 mm drug-eluting stent was placed. The distal edge of the stent was postdilated with a 4.0 noncompliant balloon. Final angiograms were performed. Preintervention there was 80% stenosis and DHIRAJ-3 flow and postintervention there was less than 10% stenosis. The right radial sheath was removed and a TR band was placed with hemostasis achieved. The patient tolerated the procedure well. Patient was transported back to the post catheterization holding area in stable condition. Conscious Sedation: Patient was monitored under the direct supervision of myself for conscious sedation using Versed and fentanyl for a total duration of 26 minutes HEMODYNAMICS: Ao: 137/81 SELECTIVE CORONARY ARTERIOGRAPHY: LEFT MAIN: The left main was not imaged, see separate report LEFT ANTERIOR DESCENDING CORONARY ARTERY: LAD was not imaged, see separate report LEFT CIRCUMFLEX CORONARY ARTERY: Left circumflex was not imaged, see separate report RIGHT CORONARY ARTERY: The right coronary artery is a large caliber vessel which gives off a PDA and PLV branch and is the dominant vessel. There is mild diffuse disease and focal 80% mid RCA stenosis FINAL IMPRESSION: 1. CAD as described above including 80% mid RCA stenosis 2. S/p PCI of mid RCA with a 3.5 x 12mm Xience FIONA, post dilated with a 4.0mm NC balloon PLAN: 1. Aggressive risk factor modification per most recent ACC/AHA guidelines. 2. Continue aspirin and Plavix for 6 months 3. Goal LDL < 70
[2024-08-14] MEDS ORDERED: ALPRAZolam 0.25 MG TAB PO PRN (10:48)
[2024-08-14] MEDS ORDERED: ATROPINE SULFATE 0.1 MG/ML 10ML SYRINGE IV PRN (10:49)
[2024-08-14] MEDS ORDERED: RX INFO: IV CONTRAST WAS GIVEN 1 EACH MISC MISCELLANE PRN (10:49)
[2024-08-14] MEDS ORDERED: ZOLPIDEM 5 MG TAB PO PRN (10:49)
[2024-08-14] MEDS ORDERED: MAG HYDROX/AL HYDROX/SIMETH 30 ML CUP PO PRN (10:49)
--- NOTE | 2024-08-14 10:58 | CC ---
CARDIAC CATHETERIZATION REPORT INDICATION: Unstable angina. PROCEDURE NOTE: After obtaining informed consent, left heart catheterization and coronary angiogram were performed with the right radial artery using standard Dorys catheters. The patient tolerated the procedure well without any obvious immediate complications. The patient received moderate conscious sedation. Total sedation time was 18 minutes. Right radial artery access was obtained using Seldinger technique, 6-Maori sheath was placed. Catheters and wires were floated into the ascending aorta under fluoroscopic guidance. The patient received verapamil and heparin per protocol. The patient developed catheter-induced left bundle-branch block that resolved spontaneously. FINDINGS: 1. Left ventricular end-diastolic pressure is 20 mm. There is no significant gradient across the aortic valve. 2. Left ventriculogram: Left ventriculogram is not performed. 3. ANGIOGRAPHIC DATA: a.Right coronary artery: Right coronary artery is a dominant vessel that shows 80% to 90% stenosis involving mid RCA. b.Left main coronary artery is a normal-sized vessel and is free of significant stenosis, divides into left anterior descending coronary artery and circumflex coronary artery. LAD shows a 30% to 40% stenosis in its midportion. Proximal LAD is free of significant disease. There is a large caliber high OM branch that is free of significant disease. Circ is nondominant and is free of significant disease. CONCLUSIONS: Severe stenosis involving mid right coronary artery. PLAN: The patient will undergo angioplasty with stent placement by Dr. Tucker, the on-call cupola mechanic. MMMANUELL / EDUARDON: [id number] /
[2024-08-14 14:40] VITALS: BP 145/63; PULSE 56
[2024-08-15] MEDS ORDERED: PANTOPRAZOLE 40 MG TABLET PO SCH (07:30)
[2024-08-15] MEDS ORDERED: ASPIRIN 81 MG PO SCH (09:00)
[2024-08-15] MEDS ORDERED: LOSARTAN 50 MG TAB PO SCH (09:00)
[2024-08-15] MEDS ORDERED: CLOPIDOGREL 75 MG TAB PO SCH (09:00)
[2024-08-15] MEDS ORDERED: LEVOTHYROXINE 100 MCG TAB PO SCH (09:00)
[2024-08-15] MEDS ORDERED: ISOSORBIDE MONONITRATE ER 30 MG TAB.ER.24H PO SCH (09:00)
[2024-08-15] MEDS ORDERED: ATORVASTATIN 40 MG TAB PO SCH (21:00)
== END 2024-08-14 14:06 | disposition home or self-care (01) ==
LOC: CATHCVL 07:21
PROVIDERS: ATTEND Internal Medicine Cardiovascular Disease
DX: I25.110 Atherosclerotic heart disease of native coronary artery with unstable angina pectoris (principal); I10 Essential (primary) hypertension; I34.0 Nonrheumatic mitral (valve) insufficiency; Z95.5 Presence of coronary angioplasty implant and graft; Z79.02 Long term (current) use of antithrombotics/antiplatelets; Z79.82 Long term (current) use of aspirin; Z79.890 Hormone replacement therapy; Z79.899 Other long term (current) drug therapy
CPT/HCPCS: 93458 ×2; 99152; 99153; 92978; 80048; 85025; C9600; J2250; J1644 ×3; J2003; Q9967; J3010; J2371; J2305

== ENCOUNTER → 2024-09-28 | Outpatient (CLI) | payer BC ==
[2024-09-28 15:06] LABS: ALT 73 U/L (10-49); AST 35 U/L (14-35); Chol/HDL Ratio 3.09 Ratio
== END | disposition home or self-care (01) ==
LOC: LABWHC1 09:46
PROVIDERS: ATTEND Internal Medicine Cardiovascular Disease
DX: E78.2 Mixed hyperlipidemia (principal)
CPT/HCPCS: 36415; 80061; 84450; 84460